=== PATIENT | female | born 1985 | race Two or more races ===

== ENCOUNTER 2024-07-22 08:47 | Outpatient (AMB) | payer OTHER, SELFPAY ==
--- NOTE | 2024-07-22 08:49 | MHC.PC.OV ---
Vital Signs 07/22/24 08:50 Height 4 ft Weight 184 lb BMI 56.1 BP 106/80 Blood Pressure Location Lt brachial Position Sitting Respiration 18 Pulse 81 Pulse Source Pulse Oximeter Temp 97.9 F Temp Source Oral Pulse Oximetry (%) 99 Oxygen Delivery Method Room Air Intake Visit Reasons: [facility] Nurse Tech Required: No Accompanied by: Self / Same As Patient Allergies From [facility] Allergy (Unknown, Uncoded 07/22/24 09:18) NAUSEA AND VOMITTING Medication List - Last Reconciled 07/22/24 by SHIV Oneil albuterol sulfate mg continuous nebulization albuterol sulfate 90 mcg/actuation inhalation ammonium lactate 12% appl topical BID PRN atorvastatin 20 mg PO DAILY betamethasone dipropionate 0.05% appl topical BID PRN cetirizine 10 mg PO DAILY fluticasone furoate-vilanterol 200-25 mcg/dose (Breo Ellipta) 1 ea inhalation DAILY hydroxyzine HCl 25 mg PO BEDTIME PRN levothyroxine 112 mcg PO DAILY meclizine 12.5 mg PO TID PRN mepolizumab (Nucala) mg subcut montelukast 10 mg PO DAILY pantoprazole 40 mg PO DAILY polyethylene glycol 3350 (Purelax) grams PO tiotropium bromide 1.25 mcg/actuation (Spiriva Respimat) 2 puffs inhalation DAILY triamcinolone acetonide 1 spray intranasal DAILY Tobacco use date assessed: 07/22/24 Dental Screening Dental Screen Date: 07/22/24 Did you have a dental visit in the last 12 months?: No Did you have a dental problem in the last 6 months where you did not have access to dental care?: No Was dental information given to patient?: No HPI [facility] HPI Details Previous PCP: Dr. Meme Aguilar, [facility] Last visit:last year Last PE: last year but does not remember the month Specialist: Pulmonology, endocrinology, orthopedics, gastro, medical weight management-will need a referral OBGYN: needs referral Past medical history:Graves disease, hypothyroids, asthma, sleep apnea, fatty liver, alternating constipation vs diarrhea, abnormal large bowel motility Medications: see med list The patient is a 38-year-old female presenting to [facility], with concerns about significant weight gain and liver health. She reports a weight increase of more than 20 pounds since January, despite maintaining a healthy diet. The patient has hypothyroidism, which has likely contributed to her decreased metabolism and could relate to her weight gain. This concern is compounded by her history of fatty liver disease and chronic asthma, which she manages with medication and a CPAP machine for sleep apnea. The patient also has a history of Graves' disease, chronic liver disease, and gluten and egg allergies. Reports that she gets red papules on her face from eating gluten. Small bowel biopsy was negative, but no one explained to her that she had to continue eating gluten for the test to be accurate, per patient. She reports gastrointestinal dysfunction, with symptoms such as alternating constipation and diarrhea due to abnormal large bowel motility and functional dyspepsia. She is concerned that her existing liver condition may be aggravated by her weight gain. Adding to her stress, the patient recently lost her mother and has dealt with the emotional and physical burden of caregiving over the past three years. She has quit smoking to improve her asthma, but continues to struggle with management due to her recent weight issues. Despite these challenges, the patient actively engages with healthcare to address and ameliorate her conditions. [facility] Medical History Abnormal large bowel motility Lumbar disc herniation Fatty liver Obesity GERD (gastroesophageal reflux disease) Asthma Hypothyroidism Graves disease Family History Other Breast cancer Colon cancer Diabetes Hypercholesteremia Hypertension Social History Housing: [place] Patient Tobacco Use Status: Former Tobacco user e-Cigarette/Vaping Use: Never Used service: No Current occupational status: employed Current occupational exposures/hazards: Yes Cognitive needs: No Hearing needs: No Questionnaire PHQ-9 Over the last 2 weeks, how often have you been bothered by any of the following problems? 1. Little interest or pleasure in doing things: not at all 2. Feeling down, depressed, or hopeless: nearly every day 3. Trouble falling or staying asleep, or sleeping too much: nearly every day 4. Feeling tired or having little energy: more than half the days 5. Poor appetite or overeating: nearly every day 6. Feeling bad about yourself - or that you are a failure or have let yourself or your family down: nearly every day 7. Trouble concentrating on things, such as reading the newspaper or watching television: more than half the days 8. Moving or speaking so slowly that other people could have noticed. Or the opposite - being so fidgety or restless that you have been moving around a lot more than usual: not at all 9. Thoughts that you would be better off or of hurting yourself in some way: not at all Total score: 16 Depression Screening Interpretation: Positive Depression Screening Done: Yes 87086 - PHQ-9 Billing: Yes Source: Developed by Drs. Alessandro Rivera, Desiree Sarabia, Elia Ricketts and colleagues, with an educational vincenzo from [employer]. Thrive Questionnaire Date Thrive assessed: 07/22/24 I am a: Patient What is your living situation today?: I have a steady place to live Within the past 12 months, did the food you bought not last and you didn't have the money to get more?: Sometimes True Within the past 12 months, did you worry whether your food would run out before you got money to buy more?: Often true Do you have trouble paying for medicines?: Yes Do you have trouble getting transportation to medical appointments?: No Do you have trouble paying your heating and electricity bill?: Yes Do you have trouble taking care of your child, family member or friend?: No Do you have trouble with day-to-day activities such as bathing, preparing meals, shopping, managing finances, etc.?: No Are you currently unemployed and looking for a job?: No Are you interested in more education?: Yes Please select the resources that you would like help with: Food, Paying for medicine and Education Currently or been in a relationship where the following occur: No concerns reported THRIVE Score: 3 AUDIT C Alcohol Use Questionnaire (AUDIT-C) 1. How often do you have a drink containing alcohol?: Monthly or less 2. How many drinks containing alcohol do you have on a typical day when you are drinking?: 3 or 4 3. How often do you have six or more drinks on one occasion?: Less than monthly Total Score: 3 DAYRON-7 AMB Questionnaire DAYRON-7 Date DAYRON - 7 assessed: 07/22/24 Feeling nervous, anxious, or on edge: 2 = More than half the days Not being able to stop or control worryin = Nearly every day Worrying too much about different things: 3 = Nearly every day Trouble relaxin = Nearly every day Being so restless that it is hard to sit still: 3 = Nearly every day Becoming easily annoyed or irritable: 3 = Nearly every day Feeling afraid as if something awful might happen: 3 = Nearly every day Total DAYRON-7 score (0-4 normal; 5-9 mild; 10-14 moderate; 15-21 severe): 20 Source: Developed by Drs. Alessandro Rivera, Desiree Sarabia, Elia Ricketts and colleagues, with an educational vincenzo from [employer]. DAYRON-7 Assessment Billing DAYRON-7 Assessment Tool: DAYRON-7 Assessment 22249 Review of Systems Const Details: - General: Reports significant weight gain; denies fever. - Respiratory: Reports controlled asthma; denies shortness of breath and chest pain. - Cardiovascular: Denies heart palpitations. - Gastrointestinal: Reports alternating constipation and diarrhea, functional dyspepsia; denies current abdominal pain. - Skin: Reports gluten and egg sensitivity. - Psychological: Reports recent emotional stress due to mother's passing. Denies headache(s) and Reports weight gain Eyes Denies loss of vision ENT Denies vertigo, Denies dizziness, Denies headache(s) and Denies sore throat Card Denies chest pain, Denies leg edema and Denies lightheadedness Resp Denies cough, Denies hemoptysis and Denies wheezing GI Denies abdominal pain, Denies melena, Reports bloating, Reports constipation (Intermittently), Reports dyspepsia, Reports diarrhea (Intermittently) and Denies vomiting Denies urinary frequency, Denies dysuria and Denies urinary urgency Musc Denies arthralgias, Denies joint swelling, Denies numbness and Denies tingling Neuro Denies Abnormal speech present, Denies behavioral changes, Denies vertigo, Denies dizziness, Denies headache(s), Denies loss of vision, Denies memory loss, Denies numbness and Denies tingling Psych Reports anxiety, Denies behavioral changes, Reports depression, Denies memory loss and Denies panic attacks Maico/Lymph Denies easy bleeding and Denies easy bruising Aller/Immun Denies wheezing Physical exam (Primary Care) Vital Signs: Last Vital Signs Pulse 81 05 08:50 BP 106/80 07/22/24 08:50 Pulse Ox 99 07/22/24 08:50 Oxygen Delivery Method Room Air 07/22/24 08:50 BMI result Body Mass Index 0.6 Tobacco/Smoking Status: Tobacco use Status Tobacco use date assessed 07/22/24 07/22/24 08:59 Patient Tobacco Use Status Former Tobacco user 07/22/24 08:59 e-Cigarette/Vaping Use Never Used 07/22/24 08:59 PHQ-9: PHQ-9 Score PHQ-9: Total score 16 07/22/24 18:17 Depression Screening Interpretation: Positive Thrive Assessment: Date of Thrive Assessment Date Thrive assessed 07/22/24 07/22/24 08:59 Currently or been in a relationship where the following occur: No concerns reported Const General: healthy appearing, no acute distress, alert and awake Nutritional Appearance: well nourished Orientation/consciousness: oriented to person, oriented to place and oriented to time HENMT Ears: TM's normal bilaterally General nose exam: Normal nasal mucous membranes and turbinates present Eyes Conjunctivae: conjunctivae normal Sclerae: sclerae normal Pupils: Equal, round and reactive pupils present Neck Neck: Yes no lymphadenopathy and Yes no JVD Thyroid: Thyroid normal Carotids: no bruits Resp Effort & Inspection: normal respiratory effort and not tachypneic Auscultation: no crackles, no rales, no rhonchi and no wheezes Cardio Rate: regular rate Rhythm: regular rhythm Heart sounds: no murmurs and normal S1 and S2 GI Palpation (GI): Soft to palpation, nontender, no hepatomegaly and no splenomegaly Auscultation: normal bowel sounds Skin General skin exam: no rashes or lesions noted and dry skin Neuro General: oriented to person, oriented to place and oriented to time Cranial nerves: Yes Equal, round and reactive pupils present Speech: No Abnormal speech present Gait exam (Neuro): Normal gait present Motor exam (neuro): no tremor noted Extrem Right upper extremity: full ROM Left upper extremity: full ROM Right lower extremity: full ROM; no edema Left lower extremity: full ROM; no edema Psych Mental Status: mental status grossly normal Speech and movement: Normal speech and movement present Affect: normal affect Attitude: cooperative Thought process: Normal thought process present Coding Level of Care Code New Pt Level 4 (47073) Diagnoses Fatty liver K76.0 Gastroesophageal reflux disease, unspecified whether esophagitis present K21.9 Esophagitis presence: esophagitis presence not specified Severe persistent asthma, unspecified whether complicated J45.50 Asthma severity: severe Asthma complication type: unspecified Asthma persistence: persistent Hypothyroidism, unspecified type E03.9 Hypothyroidism type: unspecified Graves disease E05.00 Irritable bowel syndrome with both constipation and diarrhea K58.2 Sleep apnea, unspecified type G47.30 Sleep apnea type: unspecified type Morbid obesity E66.01 Anxiety and depression F41.9; F32.A Additional Codes PHQ-9 - 61748 - PHQ-9 Billing: Yes ([id number]) DAYRON-7 Assessment Billing - DAYRON-7 Assessment Tool: DAYRON-7 Assessment 63835 ([id number]) Time Spent (min) 46 Assessment & Plan Assessment & Plan (1) Fatty liver: Code(s): K76.0 - Fatty (change of) liver, not elsewhere classified Category: Medical Plan: History of fatty liver disease. Encouraged to decrease or discontinue alcohol and Tylenol usage to prevent damaging the liver Reinforced low-cholesterol diet and activity as tolerated has proven to decrease fatty liver (2) GERD (gastroesophageal reflux disease): Code(s): K21.9 - Gastro-esophageal reflux disease without esophagitis Category: Medical Qualifiers: Esophagitis presence: esophagitis presence not specified Qualified Code(s): K21.9 - Gastro-esophageal reflux disease without esophagitis Plan: Do not eat meals or drink carbonated beverages within 3 hr of bedtime Decrease the amount of fried, fatty, and spicy foods to decrease gastric acid production Raise the head of the bed using 4 to 6-inch blocks, especially if nocturnal symptoms are present Lose weight if indicated; avoid tight-fitting clothing, especially around the waist Avoid foods that relax the Lower esophageal sphincter (chocolate, peppermint, high-fat foods etc.,) Continue pantoprazole 40 mg daily (3) Asthma: Code(s): J45.909 - Unspecified asthma, uncomplicated Category: Medical Qualifiers: Asthma severity: severe Asthma complication type: unspecified Asthma persistence: persistent Qualified Code(s): J45.50 - Severe persistent asthma, uncomplicated Plan: Continue fluticasone furoate-vilanterol 200-25mcg/dose (Breo Ellipta) 1 puff daily, montelukast 10mg daily, Spiriva Respimat 2 puffs inh daily. The patient also has albuterol sulfate via neb and MDI without directions will clarify on next visit. In addition, the patient has Mepollizumab listed on her med list without any cleared direction as well. 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 Referral placed (4) Hypothyroidism: Code(s): E03.9 - Hypothyroidism, unspecified Category: Medical Qualifiers: Hypothyroidism type: unspecified Qualified Code(s): E03.9 - Hypothyroidism, unspecified Plan: She is currently on levothyroxine 112 mcg daily Thyroid function tests ordered, we will advise when resulted (5) Graves disease: Code(s): E05.00 - Thyrotoxicosis with diffuse goiter without thyrotoxic crisis or storm Category: Medical Plan: History of Graves disease. Patient is currently on levothyroxine for hypothyroidism for which she thinks is part of the reason of her ongoing weight issue. We will refer the patient the the endocrine to further evaluate. (6) Irritable bowel syndrome with both constipation and diarrhea: Code(s): K58.2 - Mixed irritable bowel syndrome Category: Medical Plan: Patient reports a history of alternating diarrhea and constipation. Reports that she is sensitive to gluten and eggs. She also reported large bowel abnormal motility. We will refer the patient to GI to further evaluate (7) Sleep apnea: Code(s): G47.30 - Sleep apnea, unspecified Category: Medical Qualifiers: Sleep apnea type: unspecified type Qualified Code(s): G47.30 - Sleep apnea, unspecified Plan: Uses CPAP (8) Morbid obesity: Code(s): E66.01 - Morbid (severe) obesity due to excess calories Category: Medical Plan: Patient has a BMI of 56.1 and has reported gaining over 20 lb since January Encouraged to exercise for at least 30 minutes a day/5 days a week Healthy eating discussed. Encouraged to eat fruits/vegetables, protein-fish/baked chicken, and to avoid salty/fried foods, sweets, caffeine and carbohydrates. Encouraged to increase water intake 6-8 glasses a day We will refer the patient to medical weight management (9) Anxiety and depression: Code(s): F41.9 - Anxiety disorder, unspecified; F32.A - Depression, unspecified Category: Medical Plan: Reports having difficulty dealing with her mother passing will refer he to a therapist Orders: Orders Complete Blood Count Auto Diff 07/22/24 E05.00 - Thyrotoxicosis with diffuse goiter without thyrotoxic crisis or storm, E03.9 - Hypothyroidism, unspecified, J45.909 - Unspecified asthma, uncomplicated, K21.9 - Gastro-esophageal reflux disease without esophagitis, E66.9 - Obesity, unspecified, K76.0 - Fatty (change of) liver, not elsewhere classified, M79.7 - Fibromyalgia, N28.1 - Cyst of kidney, acquired, M51.26 - Other intervertebral disc displacement, lumbar region, Z00.00 - Encounter for general adult medical examination without abnormal findings Lipid Panel 07/22/24 E05.00 - Thyrotoxicosis with diffuse goiter without thyrotoxic crisis or storm, E03.9 - Hypothyroidism, unspecified, J45.909 - Unspecified asthma, uncomplicated, K21.9 - Gastro-esophageal reflux disease without esophagitis, E66.9 - Obesity, unspecified, K76.0 - Fatty (change of) liver, not elsewhere classified, M79.7 - Fibromyalgia, N28.1 - Cyst of kidney, acquired, M51.26 - Other intervertebral disc displacement, lumbar region, Z00.00 - Encounter for general adult medical examination without abnormal findings CRP High Sensitivity 07/22/24 E05.00 - Thyrotoxicosis with diffuse goiter without thyrotoxic crisis or storm, E03.9 - Hypothyroidism, unspecified, J45.909 - Unspecified asthma, uncomplicated, K21.9 - Gastro-esophageal reflux disease without esophagitis, E66.9 - Obesity, unspecified, K76.0 - Fatty (change of) liver, not elsewhere classified, M79.7 - Fibromyalgia, N28.1 - Cyst of kidney, acquired, M51.26 - Other intervertebral disc displacement, lumbar region, Z00.00 - Encounter for general adult medical examination without abnormal findings Vitamin B12 and Folate 07/22/24 E05.00 - Thyrotoxicosis with diffuse goiter without thyrotoxic crisis or storm, E03.9 - Hypothyroidism, unspecified, J45.909 - Unspecified asthma, uncomplicated, K21.9 - Gastro-esophageal reflux disease without esophagitis, E66.9 - Obesity, unspecified, K76.0 - Fatty (change of) liver, not elsewhere classified, M79.7 - Fibromyalgia, N28.1 - Cyst of kidney, acquired, M51.26 - Other intervertebral disc displacement, lumbar region, Z00.00 - Encounter for general adult medical examination without abnormal findings UA CC w/rflx Micro + Cult 07/22/24 E05.00 - Thyrotoxicosis with diffuse goiter without thyrotoxic crisis or storm, E03.9 - Hypothyroidism, unspecified, J45.909 - Unspecified asthma, uncomplicated, K21.9 - Gastro-esophageal reflux disease without esophagitis, E66.9 - Obesity, unspecified, K76.0 - Fatty (change of) liver, not elsewhere classified, M79.7 - Fibromyalgia, N28.1 - Cyst of kidney, acquired, M51.26 - Other intervertebral disc displacement, lumbar region, Z00.00 - Encounter for general adult medical examination without abnormal findings TSH reflex Free T4 07/22/24 E05.00 - Thyrotoxicosis with diffuse goiter without thyrotoxic crisis or storm, E03.9 - Hypothyroidism, unspecified, J45.909 - Unspecified asthma, uncomplicated, K21.9 - Gastro-esophageal reflux disease without esophagitis, E66.9 - Obesity, unspecified, K76.0 - Fatty (change of) liver, not elsewhere classified, M79.7 - Fibromyalgia, N28.1 - Cyst of kidney, acquired, M51.26 - Other intervertebral disc displacement, lumbar region, Z00.00 - Encounter for general adult medical examination without abnormal findings Hemoglobin A1c 07/22/24 E05.00 - Thyrotoxicosis with diffuse goiter without thyrotoxic crisis or storm, E03.9 - Hypothyroidism, unspecified, J45.909 - Unspecified asthma, uncomplicated, K21.9 - Gastro-esophageal reflux disease without esophagitis, E66.9 - Obesity, unspecified, K76.0 - Fatty (change of) liver, not elsewhere classified, M79.7 - Fibromyalgia, N28.1 - Cyst of kidney, acquired, M51.26 - Other intervertebral disc displacement, lumbar region, Z00.00 - Encounter for general adult medical examination without abnormal findings Free T4 (Free Thyroxine) 07/22/24 E03.9 - Hypothyroidism, unspecified, E05.00 - Thyrotoxicosis with diffuse goiter without thyrotoxic crisis or storm Comprehensive [place]. Panel Fast 07/22/24 E05.00 - Thyrotoxicosis with diffuse goiter without thyrotoxic crisis or storm, E03.9 - Hypothyroidism, unspecified, J45.909 - Unspecified asthma, uncomplicated, K21.9 - Gastro-esophageal reflux disease without esophagitis, E66.9 - Obesity, unspecified, K76.0 - Fatty (change of) liver, not elsewhere classified, M79.7 - Fibromyalgia, N28.1 - Cyst of kidney, acquired, M51.26 - Other intervertebral disc displacement, lumbar region, Z00.00 - Encounter for general adult medical examination without abnormal findings Erythrocyte Sedimentation Rate 07/22/24 E05.00 - Thyrotoxicosis with diffuse goiter without thyrotoxic crisis or storm, E03.9 - Hypothyroidism, unspecified, J45.909 - Unspecified asthma, uncomplicated, K21.9 - Gastro-esophageal reflux disease without esophagitis, E66.9 - Obesity, unspecified, K76.0 - Fatty (change of) liver, not elsewhere classified, M79.7 - Fibromyalgia, N28.1 - Cyst of kidney, acquired, M51.26 - Other intervertebral disc displacement, lumbar region, Z00.00 - Encounter for general adult medical examination without abnormal findings Vitamin D 25-OH Total 07/22/24 E05.00 - Thyrotoxicosis with diffuse goiter without thyrotoxic crisis or storm, E03.9 - Hypothyroidism, unspecified, J45.909 - Unspecified asthma, uncomplicated, K21.9 - Gastro-esophageal reflux disease without esophagitis, E66.9 - Obesity, unspecified, K76.0 - Fatty (change of) liver, not elsewhere classified, M79.7 - Fibromyalgia, N28.1 - Cyst of kidney, acquired, M51.26 - Other intervertebral disc displacement, lumbar region, Z00.00 - Encounter for general adult medical examination without abnormal findings
[2024-07-22 08:50] VITALS: BP 106/80; PULSE 81; RESP 18; TEMP 36.6; O2SAT 99; BMI 56.1
--- OUTSIDE RECORDS SUMMARY | 2024-07-22 08:51 | XMS_ITS | Clinical Summary ---
Author Organization [facility] Address [address] [place] [address] Phone Care Team Providers Care Obstetrics Tech Name Role Phone Nj Aguilar MD Primary Care Provider [phone] Allergies Active Allergy Reactions Criticality Noted Date Comments Egg 10/13/2022 House Dust Mite 03/28/2015 Methylprednisolone Acetate 2 vomiting Oxycodone Other 10/13/2022 Oxycodone-Acetaminophen Nausea And Vomiting 09/2016 Pollen Extracts 03/01/2024 Tramadol Nausea And Vomiting 10/13/2022 Wheat 10/21/2023 Medications adhesive bandage bandage 024 Active alcohol swabs (Alcohol Prep Pads) pads, medicated 022 Active atorvastatin (LIPITOR) 20 mg tablet Take 1 tablet (20 mg total) by mouth 1 (one) time each day. 024 Active dicyclomine (BENTYL) 10 mg capsule Take 2 capsules (20 mg total) by mouth. 024 Active EPINEPHrine (EpiPen 2-Frederick) 0.3 mg/0.3 mL injection 022 Active hydrocortisone 2.5 % cream Apply sparingly to affected areas 1 - 2 times a day as needed 020 Active polyethylene glycol (MIRALAX) 17 gram packet Take 17 g by mouth. 023 Active sucralfate (CARAFATE) 100 mg/mL suspension Take 10 mL (1 g total) by mouth. Active triamcinolone (NASACORT) 55 mcg nasal inhaler Administer 1 spray into affected nostril(s). Active betamethasone, augmented, (DIPROLENE-AF) 0.05 % cream APPLY TO LEGS TWICE DAILY NEEDED Active mometasone (ELOCON) 0.1 % ointment APPLY TWICE A DAY TO TRUNK, ARMS AND LEGS, WEAN OFF IMPROVEMENT IS SEEN Active hydrOXYzine HCL (ATARAX) 25 mg tabletIndications :Allergy, unspecified, sequela TAKE 1 TABLET BY MOUTH AT BEDTIME NEEDED FOR ITCHING. 90 tablet Active meclizine (ANTIVERT) 12.5 mg tabletIndications :Dizziness Take 1 tablet (12.5 mg total) by mouth 3 (three) times a day if needed for dizziness. 30 tablet 025 2024 Active cetirizine (ZyrTEC) 10 mg tabletIndications :Non-celiac gluten sensitivity,Pruri tus, unspecified TAKE 1 TABLET BY MOUTH EVERY DAY 90 tablet 1 025 Active pantoprazole (PROTONIX) 40 mg EC tabletIndications :Gastro-esophagea l reflux disease with esophagitis, without bleeding TAKE 1 TABLET BY MOUTH EVERY DAY 90 tablet 025 Active tiotropium (Spiriva Respimat) 1.25 mcg/actuation inhalation sprayIndications: Severe persistent asthma without complication (CMS/HCC V28) Inhale 2 puffs by mouth 1 (one) time each day. 3 each 3 025 2024 Active montelukast (SINGULAIR) 10 mg tabletIndications :Severe persistent asthma without complication (CMS/HCC V28) Take 1 tablet (10 mg total) by mouth at bedtime. 90 each 3 025 2025 Active fluticasone furoate-vilantero L (BREO ELLIPTA) 200-25 mcg/dose inhalerIndication s:Severe persistent asthma without complication (CMS/HCC V28) Inhale 1 puff by mouth 1 (one) time each day. 3 each 3 025 2024 Active albuterol HFA (PROAIR HFA ; PROVENTIL HFA ; VENTOLIN HFA) 90 mcg/actuation inhalerIndication s:Severe persistent asthma without complication ([facility] V28) Inhale 2 puffs by mouth every 6 (six) hours if needed for shortness of breath. 18 g 3 025 2024 Active albuterol 2.5 mg /3 mL (0.083 %) nebulizer solutionIndicatio ns:Severe persistent asthma without complication ([facility] V28) Take 3 mL (2.5 mg total) by nebulization 3 (three) times a day. 300 mL 2 025 Active tirzepatide, weight loss, (Zepbound) 2.5 mg/0.5 mL injection Inject 0.5 mL (2.5 mg total) under the skin every 7 (seven) days. 2 mL 025 Active levothyroxine (SYNTHROID, LEVOTHROID) 112 mcg tabletIndications :Acquired hypothyroidism TAKE ONE (1) TABLET BY MOUTH EVERY DAY 90 tablet 025 Active mepolizumab (Nucala) 100 mg/mL auto-injector Inject 100 mL (10,000 mg total) under the skin. 024 2024 levothyroxine (SYNTHROID, LEVOTHROID) 112 mcg tablet TAKE 1 TABLET BY MOUTH EVERY DAY 90 tablet 025 2024 Discontinued Active Problems Problem Noted Date Diagnosed Date Hyperlipidemia 07/24/2023 Anxiety and depression 09/03/2021 Severe persistent asthma ([facility] V28) 2 Overview (11/27/2023): Last Assessment & Plan: Severe asthma. Continue with the followin. Every month Nucala injections 2. Breo 200 mcg 1 puff once a day 3. Continue Spiriva 1 puff once a day Continue Singulair Return to clinic in 4 -6 months Fatty liver 04/01/2021 Overview (11/27/2023): Incidental findings on abdominal ultrasound October 2019 and March 2021. 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 Negative duodenal biopsy RAO (obstructive sleep apnea) 10/20/2018 Overview (11/27/2023): Last Assessment & Plan: Patient has severe obstructive sleep apnea Use of CPAP compliance meet DME requirements Continue with the use of CPAP. Lumbar disc herniation 04/19/2018 Fibromyalgia 10/05/2017 Simple cyst of kidney 06/29/2017 Overview (11/27/2023): RIGHT Ultrasound on 03/29/2021 revealed evidence of bilateral renal cysts. Chronic back pain 06/17/2017 Obesity (BMI 30-39.9) 05/08/2017 Excessive sleepiness 05/08/2017 Chronic allergic rhinitis 05/08/2017 Snoring 05/08/2017 Hypothyroid 07/11/2013 Acne 07/11/2013 Graves' disease 12/31/2012 Overview (11/27/2023): Received TOVAR ~ 2013 GERD (gastroesophageal reflux disease) 2 Asthma 05/29/2011 Overview (11/27/2023): Chronic severe asthma with hospitalization and near daily requirement of Albuterol despite the use of Flonase Last Assessment & Plan: Patient has severe asthma and is currently on biologicals (Nucala). Since I change dual therapy from Breo high-dose to Advair her symptoms have not been the same and she is using the albuterol more frequently. Because of this I will place her back in Breo. The plan is the followin. Continue with Nucala every month self injections 2. Change Advair to Breo 200 mcg 1 puff once a day 3. Continue with Spiriva 1 puff once a day 4. Continue with Singulair and antihistamines Return to clinic in 3 months for reevaluation. Encounters Date Type Department Care Team Description 05/12/2024 Telephone Pulmonolgy - [place] [address] [place] [address] Hilda Lindsey NP durable medical equipment 05/03/2024 11:15 AM EDT Consult Bariatric Surgery - [place] [address] [place] [phone] Le Booker PA Obesity (BMI 30-39.9) (Primary Dx); Other female genital prolapse; RAO (obstructive sleep apnea); Fatty liver 04/28/2024 Telephone Pulmonolgy - [place] [address] [facility] [address] [place] [phone] Mickie Payton CO DME-nebulizer machine 04/26/2024 4:00 PM EST Office [facility] [address] [facility] [address] [place] [phone] Hilda Lindsey NP Severe persistent asthma without complication (CMS/[facility] V28) (Primary Dx); Chronic allergic rhinitis; RAO (obstructive sleep apnea); Obesity (BMI 30-39.9) from Last 3 Months Immunizations Name Administration Dates Next Due Influenza Quadravalent, MDCK , 0.5ml, preservative free (Flucelvax) 6mo and older 12/12/2021,02/03/2019 Influenza Quadravalent, MDCK , 0.5ml, with preservative (Flucelvax) 6mo and older 11/04/2017,11/06/2016 Influenza Quadravalent, [place]ol[place] mbinant, 0.5ml, preservative free (Flublok) 18yo and older 02/29/2024 Influenza trivalent, with pr eservative (Fluzone; Afluria) 6mo and older 12/14/2014,11/06/2011 Pneumococcal polysaccharide 23 valent (Pneumovax 23) 2yo and older 06/05/2010 Tdap Tetanus diptheria acell ular pertussis (Boostrix; Adacel) 7yo and older 11/13/2016 Surgical History Surgery Date Site/Laterality Comments SECTION PROCEDURE: HISTORICAL ; COMMENT: x 2 TUBAL LIGATION PROCEDURE: HISTORICAL TUBAL LIGATION COLONOSCOPY 03/04/2012 PROCEDURE: MS COLONOSCOPY FLX DX W/COLLJ SPEC WHEN PFRMD; COMMENT: normal COLONOSCOPY 12/02/2017 PROCEDURE: HISTORICAL COLONOSCOPY; COMMENT: rectal polyp TA polyp ESOPHAGOGASTRODUODENOSCOPY 12/27/2019 PROCEDURE: MS EGD TRANSORAL BIOPSY SINGLE/MULTIPLE; COMMENT: Dr. Donato - normal-appearing esophagus and duodenum. Stomach had evidence of gastric mucosal congestion. Duodenal biopsy was negative for celiac disease. Gastric biopsy was positive for mild chronic gastritis but negative for H. pylori. COLONOSCOPY 03/27/2021 PROCEDURE: HISTORICAL COLONOSCOPY; COMMENT: tiny polyp ESOPHAGOGASTRODUODENOSCOPY 03/27/2021 PROCEDURE: MS EGD TRANSORAL BIOPSY SINGLE/MULTIPLE; COMMENT: normal, random stomach biopsy negative. OTHER SURGICAL HISTORY 12/20/2021 PROCEDURE: HISTORICAL TOTAL HYSTERECTOMY W/O BSO; COMMENT: RAH, BS CHOLECYSTECTOMY PROCEDURE: MS LAPAROSCOPY SURG CHOLECYSTECTOMY Medical History Medical History Date Comments Dermatitis DX:Dermatitis Asthma DX:Asthma Atopic dermatitis 11/29/2015 DX:Atopic derm atitis Fibromyalgia 10/05/2017 DX:Fibromyalgia Graves' disease 12/31/2012 DX:Graves' disea se; COMMENT: Received TOVAR - 2013 Hypothyroid 07/11/2013 DX:Hypothyroid GERD (gastroesophageal reflux disease) 2 DX:GERD (gastroesophageal reflux disease) Simple cyst of kidney 06/29/2017 DX:Simple cyst of kidney; COMMENT: RIGHT Lumbar disc herniation 04/19/2018 DX:Lumbar disc herniation Family history of colon cancer 11/06/2011 D X:Family history of colon cancer; COMMENT: Father at age 40. Negative colonoscopy 03/04/2012, no colon cancer screening needed for 5 to 7 years. RAO (obstructive sleep apnea) 10/20/2018 DX :RAO (obstructive sleep apnea) Fatty liver 04/01/2021 DX:Fatty liver; COMMENT: Incidental findings on abdominal ultrasound October 2019 and March 2021. Functional dyspepsia DX:Function al dyspepsia Abnormal large bowel motility DX :Abnormal large bowel motility Abdominal pain DX:Abdominal ligia n Gastritis DX:Gastritis Change in bowel habits DX:Change in bowel habits Hyperlipidemia 07/24/2023 DX:Hyperlipidemi a Family History Medical History Relation Name Comments Diabetes Brother Other: allergic rhinitis Brother Other: Hypoglycemia Daughter Colon cancer Father Breast cancer Mother Depression Mother Hypertension Mother Other: allergic rhinitis Mother Other: amyloidosis Mother Arthritis Sister PCOS Other: allergic rhinitis Sister Relation Name Status Comments Brother Daughter Father Alive Mother Alive Sister Social History Tobacco Use Types Packs/Day Years Used Date Smoking Tobacco: Former Cigarettes 0.3 15.8 0 08/09/2007 - 05/13/2023 Smokeless Tobacco: Never Tobacco Cessation:Counseling Given: Not Answered Alcohol Use Standard Drinks/Week Comments Not Currently 0 (1 standard drink = 0.6 oz pur e alcohol) Comments No Sex and Gender Information Value Date Recorded Sex Assigned at Female 03/31/2024 1:17 PM EST Legal Sex Female 5:36 AM EST Gender Identity Female 03/31/2024 1:17 PM EST Sexual Orientation Not on file Obstetrics History Last Filed Vital Signs Vital Sign Reading Time Taken Comments Blood Pressure 121/82 05/03/2024 11:25 AM EDT Pulse 92 05/03/2024 11:25 AM EDT Temperature 36.6 ??C (97.8 ??F) 04/26/2024 3:55 PM ES T Respiratory Rate 16 04/26/2024 3:55 PM EST Oxygen Saturation 97% 04/26/2024 3:55 PM EST Inhaled Oxygen Concentration - - Weight 83.5 kg (184 lb) 04/26/2024 3:55 PM EST Height 148.6 cm (4' 10.5 ) 05/03/2024 11:25 AM E DT Body Mass Index 37.16 04/26/2024 3:55 PM EST Plan of Treatment Upcoming Encounters Date Type Department Care Team (Late st Contact Info) Description 09/14/2024 9:45 AM EDT Office Visit Pulmonolgy - [place] [address] [facility] [address] [place] [phone] Hilda Lindsey NP [address] [facility] [address] [place] [address] 11/10/2024 11:00 AM EDT Office Visit Bariatric Surgery - [place] [address] [facility] [address] [place] [phone] Le Booker PA [address] [facility] [address] [place] [address] Health Maintenance Due Date Last Done Comments Hepatitis A Vaccines (1 of 2 - Risk 2-dose series) 08/09/2003 Pneumococcal Vaccine: Pediatrics (0 to 5 Years) and At-Risk Patients (6 to 64 Years) (2 of 2 - PCV) 06/06/2011 06/05/2010 Colorectal Cancer Screening: Colonoscopy 02/01/2022 Social Influencers of Health Screening 02/01/2022 COVID-19 Vaccine ( season) 2023 01/29/2021, 06/15/2020, 05/24/2020 Hepatitis B Vaccines (2 of 3 - 19+ 3-dose series) 03/31/2024 03/03/2024 Depression Screening 02/28/2025 02/29/2024 DTaP,Tdap,and Td Vaccines (2 - Td or Tdap) 11/13/2026 11/13/2016 Cholesterol Screening (Lipid Panel) 07/22/2028 07/23/2023, 07/23/2023 Hepatitis C Screening Completed 07/03/2015 HIV Screening Completed 12/09/2017 Influenza Vaccine Completed 02/29/2024, , 02/03/2019, Additional history exists MMR Vaccines Aged Out 03/03/2024 No longer eligi ble based on patient's age to complete this topic HIB Vaccines Aged Out No longer eligi ble based on patient's age to complete this topic HPV Vaccines Aged Out No longer eligi ble based on patient's age to complete this topic IPV Vaccines Aged Out No longer eligi ble based on patient's age to complete this topic Meningococcal ACWY Vaccine Aged Out N o longer eligible based on patient's age to complete this topic Meningococcal B Vaccine Aged Out No l onger eligible based on patient's age to complete this topic RSV Immunization Patients Under 20 months Aged Out No longer eligible based on patient's age to complete this topic Varicella Vaccines Aged Out No longer eligible based on patient's age to complete this topic Procedures Procedure Name Priority Date/Time Associated Diagnosis Comments LIPID PANEL Routine 07/23/2023 HIV SCREENING Routine 12/09/2017 HEPATITIS C SCREENING Routine 07/03/2015 from Last 3 Months or Most Recently Relevant to Health Maintenance Results * (ABNORMAL) Lipid panel (07/23/2023) Pathologist [facility] LDL/HDL Ratio 4 0 - 4 Triglycerides 59 0 - 150 mg/dL Cholesterol 174 0 - 200 mg/dL HDL 49 >=40 mg/dL LDL Cholesterol 114(A) 0 - 100 mg/dL Blood Venous blood specimen / Unknown Historical Provider LAB BLOOD ORDERABLES Rachele l Result * HIV Screening (12/09/2017) Pathologist [facility] HIV Screening abstracted [facility] Provider HEALTH MAINTENANCE Final Result * Hepatitis C Screening (07/03/2015) Pathologist [facility] Hepatitis C Screening abstracted [facility] Provider HEALTH MAINTENANCE Final Result from Last 3 Months or Most Recently Relevant to Health Maintenance Insurance [facility] Care Teams Obstetrics Tech Relationship Specialty Start Date End Date jN Aguilar MD [address] [place] [id number] PCP - General Internal Medicine 08/04/18
== END 2024-07-22 09:54 | disposition home or self-care (01) ==
LOC: HO.HMCH 08:47
PROVIDERS: PCP Internal Medicine
DX: K76.0 Fatty (change of) liver, not elsewhere classified (principal); J45.50 Severe persistent asthma, uncomplicated; E66.01 Morbid (severe) obesity due to excess calories; Z68.43 Body mass index [BMI] 50.0-59.9, adult; K21.9 Gastro-esophageal reflux disease without esophagitis; E03.9 Hypothyroidism, unspecified; E05.00 Thyrotoxicosis with diffuse goiter without thyrotoxic crisis or storm; K58.2 Mixed irritable bowel syndrome; G47.30 Sleep apnea, unspecified; F41.9 Anxiety disorder, unspecified; F32.A Depression, unspecified

== ENCOUNTER 2024-07-22 08:47 | Outpatient (REF) | payer OTHER, SELFPAY ==
[2024-07-22 10:13] LABS: MANUAL DIFF FLAG NO
[2024-07-22 11:18] LABS: Basophils Absolute Auto 0.1 X10*3/uL (0.0-0.2); Basophils Percent Auto 0.7 % (0-2); Eosinophils Absolute Auto 0.4 X10*3/uL (0.0-0.4); Eosinophils Percent Auto 6.1 % (0-4); Hematocrit 41.9 % (37.0-47.0); Hemoglobin 13.5 g/dl (12.0-16.0); Imm Gran Abs Auto 0.04 X10*3/uL (0.00-0.03); Imm Gran Pct Auto 0.6 % (0.0-0.4); Lymphocytes Percent Auto 27.9 % (20-40); Mean Corpuscular HGB Conc 32.2 g/dl (31.0-35.0); Mean Corpuscular Hemoglobin 28.3 pg (27.0-33.0); Mean Corpuscular Volume 87.8 fL (80.0-98.0); Mean Platelet Volume 9.8 fL (9.4-12.3); Monocytes Absolute Auto 0.8 X10*3/uL (0.1-1.2); Monocytes Percent Auto 11.5 % (2-11); Neutrophils Absolute Auto 3.9 x10*3/uL (2.0-8.3); Neutrophils Percent Auto 53.2 % (45-73); Platelet Count 345 X10*3/uL (160-400); Red Blood Count 4.77 X10*6/uL (4.20-5.50); Red Cell Distribution Width 13.9 % (11.0-16.0); White Blood Count 7.2 X10*3/uL (4.8-10.8)
[2024-07-22 11:28] LABS: Estimated Average Glucose 117 mg/dL; Hemoglobin A1c % 5.7 % (<6.0)
[2024-07-22 11:35] LABS: Appearance Urine Clear; Color Urine Yellow; Glucose Urine UA Negative (Negative); Leukocyte Esterase Urine Negative (Negative); Nitrite Urine Negative (Negative); UMIC TRIGGER UACC YES; Urine Blood Small (1+) (Negative); Urine Ketones Negative (Negative); Urine Protein Negative (Neg-Trace)
[2024-07-22 12:03] LABS: Erythrocyte Sedimentation Rate 7 MM/HR (0-20)
[2024-07-22 12:07] LABS: Bacteria Urine None Seen (None Seen); Hyaline Casts Urine 0-2 /LPF (0-2); RBC Urine 0-2 /HPF (0-2); WBC Urine 0-5 /HPF (0-5)
[2024-07-22 12:37] LABS: Alanine Aminotransferase 22 U/L (0-31); Albumin Level 4.2 g/dL (3.5-5.0); Alkaline Phosphatase 58 U/L (39-117); Anion Gap 10 (12-20); Aspartate Amino Transferase 16 U/L (5-31); Bilirubin Total 0.9 mg/dL (0.0-1.0); Blood Urea Nitrogen 10 mg/dL (9-16); Carbon Dioxide 28 mmol/L (22-29); Chloride 106 mmol/L (96-108); Cholesterol 187 mg/dL (<200); Estimated Glomerular Filt Rate > 60; Glucose Fasting 90 mg/dL (60-99); HDL Cholesterol 44 mg/dL (>40); LDL Cholesterol Calculated 127 mg/dL (<100); Sodium 140 mmol/L (135-145); TSH reflex Free T4 5.24 uIU/mL (0.32-4.0); Total Protein 7.1 g/dL (6.5-8.0); Triglycerides 84 mg/dL (<150); Vitamin D 25-OH Total 22.7 ng/mL (>30)
[2024-07-22 13:15] LABS: Folate 13.7 ng/mL (> or = 4.0); Vitamin B12 360 pg/mL (200-900)
[2024-07-23 04:39] LABS: CRP High Sensitivity 2.3 mg/L
== END 2024-07-22 08:48 | disposition home or self-care (01) ==
LOC: HO.LAB 08:47
DX: Z76.89 Persons encountering health services in other specified circumstances (principal); K76.0 Fatty (change of) liver, not elsewhere classified; K21.9 Gastro-esophageal reflux disease without esophagitis; J45.50 Severe persistent asthma, uncomplicated; E03.9 Hypothyroidism, unspecified; E05.00 Thyrotoxicosis with diffuse goiter without thyrotoxic crisis or storm; K58.2 Mixed irritable bowel syndrome; G47.30 Sleep apnea, unspecified; E66.01 Morbid (severe) obesity due to excess calories; Z68.43 Body mass index [BMI] 50.0-59.9, adult; F41.9 Anxiety disorder, unspecified; F32.A Depression, unspecified; Z79.899 Other long term (current) drug therapy; Z00.00 Encounter for general adult medical examination without abnormal findings; M51.26 Other intervertebral disc displacement, lumbar region; N28.1 Cyst of kidney, acquired; M79.7 Fibromyalgia
CPT/HCPCS: 36415; 80053; 80061; 81001; 82306; 82607; 82746; 83036; 84439; 84443; 85025; 85652; 86141; 96127

== ENCOUNTER 2024-09-21 14:12 | Outpatient (AMB) | payer OTHER, SELFPAY ==
--- NOTE | 2024-09-21 14:15 | MHC.OFFVIS ---
Vital Signs 09/21/24 14:17 Height 4 ft 11 in Weight 182 lb BMI 36.8 BP 93/59 L Blood Pressure Location Lt brachial Position Sitting Pulse 90 Pulse Oximetry (%) 98 Oxygen Delivery Method Room Air Intake Visit Reasons: IBS, Fatty Liver Intake Note: Patient new consult for IBS, and Fatty Liver. Patient cc: intestine problems, she is not doing BM every date and is hard to do it even the soft stool, denies any other GI issues. She is worry about the last lab drawn. she also wanted to be text for Celiac. Conservation Engineer Required: No Accompanied by: Self / Same As Patient Allergies egg (eggs) Allergy (Intermediate, Verified 09/21/24 14:50) Rash From SOLU-MEDROL Allergy (Unknown, Uncoded 07/22/24 09:18) NAUSEA AND VOMITTING Medication List - Last Reconciled 09/21/24 by Esmer Esqueda CNP albuterol sulfate mg continuous nebulization albuterol sulfate 90 mcg/actuation inhalation ammonium lactate 12% appl topical BID PRN atorvastatin 20 mg PO DAILY betamethasone dipropionate 0.05% appl topical BID PRN cetirizine 10 mg PO DAILY fluticasone furoate-vilanterol 200-25 mcg/dose (Breo Ellipta) 1 ea inhalation DAILY hydroxyzine HCl 25 mg PO BEDTIME PRN levothyroxine 112 mcg PO DAILY meclizine 12.5 mg PO TID PRN montelukast 10 mg PO DAILY pantoprazole 40 mg PO DAILY PRN polyethylene glycol 3350 (Purelax) grams PO tiotropium bromide 1.25 mcg/actuation (Spiriva Respimat) 2 puffs inhalation DAILY triamcinolone acetonide 1 spray intranasal DAILY HPI HPI IBS, Fatty Liver: Details: Patient is a 39-year-old female with PMH of anxiety and depression, obesity, sleep apnea, fibromyalgia and asthma. Referred by PCP for further evaluation IBS and elevated liver enzyme. The patient presents with a history of irregular bowel habits, characterized by alternating episodes of mild constipation and normal bowel movements. Bowel movements occur approximately four to five times weekly and include occasional straining, often described as significant effort but without impaction. Stool consistency ranges from [place] Stool Chart types 2?4, with rare occurrences of types 1 or 6. Symptoms reportedly began after a hysterectomy two years ago, which may have contributed to straining and a worsening of abdominal pain during bowel movements. The patient denies significant blood in stool except for occasional bright red blood with harder stools attributed to hemorrhoids. No associated nausea, vomiting, or unexplained weight loss reported. The patient uses polyethylene glycol (Miralax) periodically to manage symptoms. Other reported symptoms include severe episodic abdominal pain relieved post-bowel movement. The patient expresses concern due to a family history of colorectal cancer in her father. There is a history of a colonoscopy 3?4 years ago with polyp removal completed through [facility]. Reports recommendations for 10-year follow-up. The patient also reports a history of non-celiac gluten sensitivity presenting as gastrointestinal symptoms, significant rash, and facial redness with ingestion of gluten or eggs, exacerbated with combined exposure. The patient sometimes experiences heartburn and regurgitation when gluten is consumed, managed previously with pantoprazole, though adherence to daily therapy is limited due to bone health concerns. The patient notes a past diagnosis of fatty liver made via ultrasound but lacks confirmatory imaging or recent evaluation. Liver enzymes from June 2024 were reportedly within normal limits. A history of elevated cholesterol (LDL 127 mg/dL) is noted, currently managed with atorvastatin, with a recent increase in dose. The patient includes a 13-year history of substantial difficulty with weight loss despite attempts with various diets and intermittent fasting, which the patient follows consistently with no substantial impact. Social hx: -former smoker, cessation last year - family hx as below [facility] Medical History (Updated 09/23/24 @ 09:39 by Esmer Esqueda CNP) Non-celiac gluten sensitivity IBS (irritable bowel syndrome) History of fatty infiltration of liver Abnormal large bowel motility Lumbar disc herniation Fatty liver Obesity GERD (gastroesophageal reflux disease) Asthma Hypothyroidism Graves disease Surgical History (Updated 08/24/24 @ 08:16 by Jammie Wright CMA) Hx of section Hx of cholecystectomy Family History Other Breast cancer Colon cancer Diabetes Hypercholesteremia Hypertension Social History Housing: House Alcohol intake: never Patient Tobacco Use Status: Former Tobacco user e-Cigarette/Vaping Use: Never Used service: No Current occupational status: employed Current occupational exposures/hazards: Yes Cognitive needs: No Hearing needs: No Review of Systems Const Reports as per HPI ENT Reports as per HPI Card Reports as per HPI Resp Reports as per HPI GI Reports as per HPI Reports as per HPI Physical Exam Vital Signs: Last Vital Signs Pulse 90 09/21/24 14:17 BP 93/59 L 09/21/24 14:17 Pulse Ox 98 09/21/24 14:17 Oxygen Delivery Method Room Air 09/21/24 14:17 BMI result Body Mass Index 36.8 Const General: healthy appearing, no acute distress and well developed Nutritional Appearance: average body habitus Orientation/consciousness: patient oriented x3 HEENT Head: Yes normal to inspection, Yes normocephalic and Yes atraumatic Face and sinus: Yes normal facial exam Eyes General: appearance normal, both eyes and all related structures Neck Neck: Yes normal visual inspection Resp Effort & Inspection: normal respiratory effort, able to speak in complete sentences, no tracheal deviation and symmetric chest movement Auscultation: clear to auscultation bilaterally and wheezes inspiratory wheezes and throughout Cardio Jugular venous distension: no JVD Rate: regular rate Rhythm: regular rhythm Heart sounds: S1 normal heart sound present, S2 normal heart sound present, no gallops and no murmurs GI Inspection: Yes normal to inspection, No distended, Yes obesity and Yes scar Palpation (GI): Soft to palpation, not firm, nontender and No hepatosplenomegaly present Auscultation: normal bowel sounds Neuro General: patient oriented x3 Gait exam (Neuro): Normal gait present Psych Appearance: grossly normal Mental Status: mental status grossly normal Speech and movement: Normal speech and movement present Affect: normal affect Attitude: cooperative Thought process: Normal thought process present Thought content: Normal thought content present Insight: Good insight present (Psych) Judgement: Good judgement present (Psych) Assessment & Plan Assessment & Plan (1) IBS (irritable bowel syndrome): Code(s): K58.9 - Irritable bowel syndrome, unspecified Category: Medical Qualifiers: Irritable bowel syndrome type: with constipation Qualified Code(s): K58.1 - Irritable bowel syndrome with constipation Plan: Episodic abdominal pain relieved by defecation, stool pattern variation from normal to mild constipation, and symptom chronicity meeting Malcom IV criteria. Additional Testing: Colonoscopy and upper endoscopy to rule out other pathology and celiac disease given the reported stool symptoms and family history of colorectal cancer. Medication Management: Continue polyethylene glycol PRN with titration based on stool consistency. Lifestyle Recommendations: -Gradual introduction of high-fiber foods (vegetables, legumes, whole grains) to manage symptoms. -Increase hydration with plain water during fasting periods. (2) History of fatty infiltration of liver: Code(s): Z87.19 - Personal history of other diseases of the digestive system Category: Medical Plan: Prior diagnosis via ultrasound from outside facility, no current imaging, elevated LDL, history of obesity. Additional Testing: Repeat abdominal ultrasound to confirm findings; obtain prior imaging records from [facility]. Medication Management: Continue atorvastatin as prescribed. Lifestyle Recommendations: -Implement a whole foods-based, healthy fat, moderate-carb diet. -Encourage regular physical activity to promote weight loss and manage NAFLD risk factors. (3) Non-celiac gluten sensitivity: Code(s): K90.41 - Non-celiac gluten sensitivity Category: Medical Plan: Symptom flares and dermatologic reaction after gluten ingestion without confirmatory celiac biopsy. Additional Testing: - Perform repeat antibody testing (anti-tTG) for reevaluation. -upper endoscopy as above Medications: -Education on risks and benefits of daily omeprazole. Encouraged famotidine as alternative. Patient opted to continue omeprazole PRN Lifestyle Recommendations: Strict gluten and egg avoidance. (4) Hypothyroidism: Code(s): E03.9 - Hypothyroidism, unspecified Category: Medical Qualifiers: Hypothyroidism type: unspecified Qualified Code(s): E03.9 - Hypothyroidism, unspecified Plan: Currently managed by PCP with recent referral to Endocrinology. TSH elevated at 5.24 based on 06/2024 labs. Currently prescribed 112 mcg of levothyroxine. May see improvement with weight loss once thyroid levels are stabilized Follow-up with PCP and Endocrinology as planned Plan Follow-up in 3 months or sooner as needed Procedure Time: I spent a total of 50 minutes on the date of encounter which includes: Preparing to see the patient (reviewed previous documentation, test results and medical history) Performing a medically appropriate exam and/or evaluation Ordering medications, tests, and procedures Documenting clinical information in the health record Orders: Orders US abdomen complete 09/21/24 Z87.19 - Personal history of other diseases of the digestive system Transglutaminase IgA 09/22/24 K58.2 - Mixed irritable bowel syndrome Medications: New bisacodyl (Dulcolax (bisacodyl)) Take four tablets pre colonoscopy instructions 20 mg (4 x 5 mg) PO ONCE 4 tabs 0RF 1 day polyethylene glycol 3350 (Miralax) per colonoscopy prep instructions 238 grams PO ONCE 238 grams 0RF Coding Level of Care Code New Pt New Pt Level 4 (12240) Patient Type New Diagnoses Irritable bowel syndrome with constipation K58.1 Irritable bowel syndrome type: with constipation History of fatty infiltration of liver Z87.19 Non-celiac gluten sensitivity K90.41 Hypothyroidism, unspecified type E03.9 Hypothyroidism type: unspecified
[2024-09-21 14:17] VITALS: BP 93/59; PULSE 90; O2SAT 98; BMI 36.8
--- OUTSIDE RECORDS SUMMARY | 2024-09-21 14:53 | XMS_ITS | Clinical Summary ---
Author Organization [facility] Address [address] [place] [address] Phone Care Team Providers Care Employee Communications Intern Name Role Phone Physician, No Pcp Primary Care Provider Unavaila ble Allergies Active Allergy Reactions Criticality Noted Date Comments Egg 10/13/2022 House Dust Mite 03/28/2015 Methylprednisolone Acetate 2 vomiting Oxycodone Other 10/13/2022 Oxycodone-Acetaminophen Nausea And Vomiting 09/2016 Pollen Extracts 03/01/2024 Tramadol Nausea And Vomiting 10/13/2022 Wheat 10/21/2023 Medications adhesive bandage bandage 04/13/19 24 Active alcohol swabs (Alcohol Prep Pads) pads, medicated 05/29/19 22 Active atorvastatin (LIPITOR) 20 mg tablet Take 1 tablet (20 mg total) by mouth 1 (one) time each day. 06/22/19 24 Active dicyclomine (BENTYL) 10 mg capsule Take 2 capsules (20 mg total) by mouth. 06/19/19 24 Active EPINEPHrine (EpiPen 2-[place]) 0.3 mg/0.3 mL injection 05/04/19 22 Active hydrocortisone 2.5 % cream Apply sparingly to affected areas 1 - 2 times a day as needed 12/07/19 20 Active polyethylene glycol (MIRALAX) 17 gram packet Take 17 g by mouth. 01/27/20 23 Active sucralfate (CARAFATE) 100 mg/mL suspension Take 10 mL (1 g total) by mouth. 06/19/19 24 Active triamcinolone (NASACORT) 55 mcg nasal inhaler Administer 1 spray into affected nostril(s). 09/29/19 20 Active betamethasone, augmented, (DIPROLENE-AF) 0.05 % cream APPLY TO LEGS TWICE DAILY NEEDED 09/03/19 24 Active mometasone (ELOCON) 0.1 % ointment APPLY TWICE A DAY TO TRUNK, ARMS AND LEGS, WEAN OFF IMPROVEMENT IS SEEN 10/01/19 24 Active hydrOXYzine HCL (ATARAX) 25 mg tabletIndications: Allergy, unspecified, sequela TAKE 1 TABLET BY MOUTH AT BEDTIME NEEDED FOR ITCHING. 90 tablet 02/22/20 24 Active cetirizine (ZyrTEC) 10 mg tabletIndications: Non-celiac gluten sensitivity,Prurit us, unspecified TAKE 1 TABLET BY MOUTH EVERY DAY 90 tablet 1 04/22/19 25 Active pantoprazole (PROTONIX) 40 mg EC tabletIndications: Gastro-esophageal reflux disease with esophagitis, without bleeding TAKE 1 TABLET BY MOUTH EVERY DAY 90 tablet 04/22/19 25 Active tiotropium (Spiriva Respimat) 1.25 mcg/actuation inhalation sprayIndications:S evere persistent asthma without complication (CMS/HCC V28) Inhale 2 puffs by mouth 1 (one) time each day. 3 each 3 04/27/19 25 025 Active montelukast (SINGULAIR) 10 mg tabletIndications: Severe persistent asthma without complication (CMS/HCC V28) Take 1 tablet (10 mg total) by mouth at bedtime. 90 each 3 04/27/19 25 026 Active fluticasone furoate-vilanteroL (BREO ELLIPTA) 200-25 mcg/dose inhalerIndications :Severe persistent asthma without complication (CMS/HCC V28) Inhale 1 puff by mouth 1 (one) time each day. 3 each 3 04/27/19 25 Active albuterol HFA (PROAIR HFA ; PROVENTIL HFA ; VENTOLIN HFA) 90 mcg/actuation inhalerIndications :Severe persistent asthma without complication (CMS/HCC V28) Inhale 2 puffs by mouth every 6 (six) hours if needed for shortness of breath. 18 g 3 04/27/19 25 Active albuterol 2.5 mg /3 mL (0.083 %) nebulizer solutionIndication s:Severe persistent asthma without complication ([facility] V28) Take 3 mL (2.5 mg total) by nebulization 3 (three) times a day. 300 mL 2 04/27/19 25 Active tirzepatide, weight loss, (Zepbound) 2.5 mg/0.5 mL injection Inject 0.5 mL (2.5 mg total) under the skin every 7 (seven) days. 2 mL 05/21/19 25 Active levothyroxine (SYNTHROID, LEVOTHROID) 112 mcg tabletIndications: Acquired hypothyroidism TAKE ONE (1) TABLET BY MOUTH EVERY DAY 90 tablet 06/30/19 25 Active meclizine (ANTIVERT) 12.5 mg tabletIndications: Dizziness Take 1 tablet (12.5 mg total) by mouth 3 (three) times a day if needed for dizziness. 30 tablet 03/01/19 25 025 Active Problems Problem Noted Date Diagnosed Date Hyperlipidemia 07/24/2023 Anxiety and depression 09/03/2021 Severe persistent asthma ([facility] V28) 2 Overview (11/27/2023): Last Assessment & [...] Encounters Date Type Department Care Team Description 07/27/2024 Telephone Bariatric Surgery - [address] [place] [address] Le Booker PA prior auth (Prior auth) from Last 3 Months Immunizations Name Administration [...] PROCEDURE: HISTORICAL TUBAL LIGATION COLONOSCOPY 03/04/2012 PROCEDURE: [place] COLONOSCOPY FLX DX W/COLLJ SPEC WHEN PFRMD; COMMENT: normal COLONOSCOPY 12/02/2017 PROCEDURE: HISTORICAL COLONOSCOPY; COMMENT: rectal polyp TA polyp ESOPHAGOGASTRODUODENOSCOPY 12/27/2019 PROCEDURE: [place] EGD TRANSORAL BIOPSY SINGLE/MULTIPLE; COMMENT: Dr. Donato - normal-appearing esophagus and duodenum. Stomach had evidence of gastric mucosal congestion. Duodenal biopsy was negative for celiac disease. Gastric biopsy was positive for mild chronic gastritis but negative for H. pylori. COLONOSCOPY 03/27/2021 PROCEDURE: HISTORICAL COLONOSCOPY; COMMENT: tiny polyp ESOPHAGOGASTRODUODENOSCOPY 03/27/2021 PROCEDURE: [place] EGD TRANSORAL BIOPSY SINGLE/MULTIPLE; COMMENT: normal, random stomach biopsy negative. OTHER SURGICAL HISTORY 12/20/2021 PROCEDURE: HISTORICAL TOTAL HYSTERECTOMY W/O BSO; COMMENT: RA, BS CHOLECYSTECTOMY PROCEDURE: [place] LAPAROSCOPY SURG CHOLECYSTECTOMY Medical History Medical History [...] 92 05/03/2024 11:25 AM EDT Temperature 36.6 C (97.8 F) 04/26/2024 3:55 PM EST Respiratory Rate 16 04/26/2024 3:55 PM EST Oxygen Saturation 97% 04/26/2024 3:55 PM EST Inhaled Oxygen Concentration - - Weight 83.5 kg (184 lb) 04/26/2024 3:55 PM EST Height 148.6 cm (4' 10.5 ) 05/03/2024 11:25 AM E DT Body Mass Index 37.16 04/26/2024 3:55 PM EST Plan of Treatment Upcoming Encounters Date Type Department Care Team (Late st Contact Info) Description 11/10/2024 11:00 AM EDT Office Visit Bariatric Surgery - [place] [address] [place] [id number] Le Booker PA [address] [place] [address] 12/07/2024 2:45 PM EDT Office Visit Pulmonolgy - [place] [address] [place] [id number] Hilda Lindsey, BIBI [address] [place] [address] Health Maintenance Due Date Last Done Comments Pneumococcal Vaccine: Pediatrics (0 to 5 Years) and At-Risk Patients (6 to 49 Years) (2 of 2 - PCV) 06/06/2011 06/05/2010 Colorectal Cancer Screening: Colonoscopy 02/01/2022 Social Influencers of Health Screening 02/01/2022 COVID-19 Vaccine ( - season) 2023 01/29/2021, 06/15/2020, 05/24/2020 Hepatitis B Vaccines (2 of 3 - 19+ 3-dose series) 03/31/2024 03/03/2024 Influenza Vaccine (#1) 2024 , 12/12/2021, 02/03/2019, Additional history exists Breast Cancer Screening 12/24/2024 12/24/2022 DTaP,Tdap,and Td Vaccines (2 - Td or Tdap) 11/13/2026 11/13/2016 Cholesterol Screening (Lipid Panel) 07/22/2028 07/23/2023, 07/23/2023 Hepatitis C Screening Completed 07/03/2015 HIV Screening Completed 12/09/2017 Depression Screening Completed 02/29/2024 MMR Vaccines Aged Out 03/03/2024 No longer eligi ble based on patient's age to complete this topic HIB Vaccines Aged Out No longer eligi ble based on patient's age to complete this topic HPV Vaccines Aged Out No longer eligi ble based on patient's age to complete this topic Hepatitis A Vaccines Aged Out No long er eligible based on patient's age to complete [...] Associated Diagnosis Comments LIPID PANEL Routine 07/23/2023 DIAGNOSTIC MAMMOGRAPHY WITH CAD UNILATERAL Routine 12/24/2022 10:34 AM EDT Mastodynia HIV SCREENING Routine 12/09/2017 HEPATITIS C SCREENING Routine 07/03/2015 from Last 3 Months or Most Recently Relevant to Health Maintenance Results * (ABNORMAL) Lipid panel (07/23/2023) LDL/HDL Ratio 4 0 - 4 Triglycerides 59 0 - 150 mg/dL Cholesterol 174 0 - 200 mg/dL HDL 49 >=40 mg/dL LDL Cholesterol 114(A) 0 - 100 mg/dL Blood Venous blood specimen / Unknown Historical Provider LAB BLOOD ORDERABLES Rachele l Result * DIAGNOSTIC MAMMOGRAPHY WITH CAD UNILATERAL (12/24/2022 10:34 AM EDT) Anatomical Region Laterality Modality Mammography 12/08/2022 3:53 PM EDT Narrative 12/24/2022 10:53 AM EDT This is a summary report. The complete report is available in the patient's medical record. If you cannot access the medical record, please contact the sending organization for a detailed fax or copy. BILATERAL 3D DIGITAL DIAGNOSTIC MAMMOGRAM History: Work-up for left lateral breast pain. Family history of breast cancer in mother Comparison: Baseline Technique: Bilateral full-field digital 3D mammography was performed using standard CC and MLO projections, left breast exaggerated cc CAD was used to evaluate this mammogram. Findings: Density: There are scattered areas of fibroglandular density-B RIGHT: No suspicious masses, groups of microcalcification or areas of architectural distortion identified. Typically benign parenchymal asymmetries LEFT: No suspicious masses, groups of microcalcifications or areas of architectural distortion identified. Typically benign parenchymal asymmetries LEFT BREAST TARGETED ULTRASOUND EVALUATION HISTORY: Work-up for left lateral breast pain TECHNIQUE: Ultrasonographic examination is performed using a linear array transducer. Targeted left breast ultrasound was performed from 1:00 to 4:00 in area of clinical pain. Real-time sonographic scanning was also performed by the radiologist FINDINGS: From 1:00 to 4:00, no sonographic evidence of malignancy or other focal abnormalities were identified at the left breast in area of clinical concern.. Impression: No or mammographic sonographic evidence of malignancy BI-RADS Category 2 benign findings Recommendation: Routine annual screening mammography is recommended Procedure Note David Mason MD - 03/31/2023 This is a summary report. The complete report is available in thepatient's medical record. If you cannot access the medical record, pleasecontact the sending organization for a detailed fax or copy. BILATERAL 3D DIGITAL DIAGNOSTIC MAMMOGRAM History: Work-up for left lateral breast pain. Family history of breastcancer in mother Comparison: Baseline Technique: Bilateral full-field digital 3D mammography was performed usingstandard CC and MLO projections, left breast exaggerated cc CAD was used to evaluate this mammogram. Findings: Density: There are scattered areas of fibroglandular density-B RIGHT: No suspicious masses, groups of microcalcification or areas ofarchitectural distortion identified. Typically benign parenchymalasymmetries LEFT: No suspicious masses, groups of microcalcifications or areas ofarchitectural distortion identified. Typically benign parenchymalasymmetries LEFT BREAST TARGETED ULTRASOUND EVALUATION HISTORY: Work-up for left lateral breast pain TECHNIQUE: Ultrasonographic examination is performed using a linear arraytransducer. Targeted left breast ultrasound was performed from 1:00 to4:00 in area of clinical pain. Real-time sonographic scanning was alsoperformed by the radiologist FINDINGS: From 1:00 to 4:00, no sonographic evidence of malignancy or other focalabnormalities were identified at the left breast in area of clinicalconcern.. Impression: No or mammographic sonographic evidence of malignancy BI-RADS Category 2 benign findings Recommendation: Routine annual screening mammography is recommended Yamila Fair PROGRAM SERVICES ASSISTANT IMG BI PROCEDURES Rachele l Result * HIV Screening (12/09/2017) HIV Screening abstracted Historical Provider HEALTH MAINTENANCE Final Result * Hepatitis C Screening (07/03/2015) Hepatitis C Screening abstracted Historical Provider HEALTH MAINTENANCE Final Result from Last 3 Months or Most Recently Relevant to Health Maintenance Insurance [employer] [place] [address] Care Teams Employee Communications Intern Relationship Specialty Start Date End Date Physician, No Pcp PCP - General 09/19/24
--- OUTSIDE RECORDS SUMMARY | 2024-09-21 14:53 | XMS_ITS | Clinical Summary ---
Author Organization [facility] Address [address] [place] [address] Care Team Providers Care Barge Hand Name Role Phone Unavailable Primary Care Provider Unavailabl e Social History Tobacco Use Types Packs/Day Years Used Date Smoking Tobacco: Never Assessed Sex and Gender Information Value Date Recorded Sex Assigned at Female 11/03/2023 2:15 PM EDT Gender Identity Not on file Sexual Orientation Not on file Job Start Date Occupation Industry Not on file Not on file Not on file Plan of Treatment Health Maintenance Due Date Last Done Comments Hepatitis B Vaccines (1 of 3 - 3-dose series) 1984 Hepatitis C Screening 1984 Depression Screening 1996 Preventative Health Evaluation 2002 Cervical Cancer Screening (Pap Smear) 2005 COVID-19 Vaccine ( season) 2023 01/29/2021, 06/15/2020, 05/24/2020 Influenza Vaccine (#1) 2024 2, 02/03/2019, 11/04/2017, Additional history exists DTap / Tdap / Td (2 - Td or Tdap) 11/13/2026 11/13/2016 Pneumococcal Vaccine Aged Out No long er eligible based on patient's age to complete this topic RSV Ped < 20 months Aged Out No longe r eligible based on patient's age to complete this topic Shamir Dominguez Personal/Family Self 1985 [address] [place] [place] [address]
== END 2024-09-21 15:18 | disposition home or self-care (01) ==
LOC: HO.HGI 14:12
PROVIDERS: Visit Provider Nurse Practitioner Family
DX: K58.1 Irritable bowel syndrome with constipation (principal); Z87.19 Personal history of other diseases of the digestive system; K90.41 Non-celiac gluten sensitivity; E03.9 Hypothyroidism, unspecified
CPT/HCPCS: 99204

== ENCOUNTER 2024-09-22 13:57 | Outpatient (REF) | payer OTHER, SELFPAY ==
--- OUTSIDE RECORDS SUMMARY | 2024-09-22 14:07 | XMS_ITS | Clinical Summary ---
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 Physician, No Pcp Primary [...] nebulizer solutionIndication s:Severe persistent asthma without complication ([facility] V28) Take 3 mL (2.5 mg total) [...] Anxiety and depression 09/03/2021 Severe persistent asthma ([facility] V28) 2 Overview (11/27/2023): Last Assessment & [...] Team Description 07/27/2024 Telephone Bariatric Surgery - [address] [place] [address] Le Booker PA prior auth [...] PROCEDURE: HISTORICAL TUBAL LIGATION COLONOSCOPY 03/04/2012 PROCEDURE: FL COLONOSCOPY FLX DX W/COLLJ SPEC WHEN PFRMD; COMMENT: normal COLONOSCOPY 12/02/2017 PROCEDURE: HISTORICAL COLONOSCOPY; COMMENT: rectal polyp TA polyp ESOPHAGOGASTRODUODENOSCOPY 12/27/2019 PROCEDURE: FL EGD TRANSORAL BIOPSY SINGLE/MULTIPLE; COMMENT: Dr. Donato - normal-appearing esophagus and duodenum. Stomach had evidence of gastric mucosal congestion. Duodenal biopsy was negative for celiac disease. Gastric biopsy was positive for mild chronic gastritis but negative for H. pylori. COLONOSCOPY 03/27/2021 PROCEDURE: HISTORICAL COLONOSCOPY; COMMENT: tiny polyp ESOPHAGOGASTRODUODENOSCOPY 03/27/2021 PROCEDURE: FL EGD TRANSORAL BIOPSY SINGLE/MULTIPLE; COMMENT: normal, random stomach biopsy negative. OTHER SURGICAL HISTORY 12/20/2021 PROCEDURE: HISTORICAL TOTAL HYSTERECTOMY W/O BSO; COMMENT: RA, BS CHOLECYSTECTOMY PROCEDURE: FL LAPAROSCOPY SURG CHOLECYSTECTOMY Medical History Medical History [...] AM EDT Office Visit Bariatric Surgery - [place] [address] [place] [id number] Le Booker PA [address] [place] [address] 12/07/2024 2:45 PM EDT Office Visit Pulmonolgy - [place] [address] [place] [id number] Hilda Lindsey, BIBI [address] [place] [address] Health Maintenance Due Date Last Done Comments [...] annual screening mammography is recommended Yamila Fair 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
--- OUTSIDE RECORDS SUMMARY | 2024-09-22 14:07 | XMS_ITS | Clinical Summary ---
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
== END 2024-09-22 13:58 | disposition home or self-care (01) ==
LOC: HO.LAB 13:57
PROVIDERS: Visit Provider Nurse Practitioner Family
DX: K58.1 Irritable bowel syndrome with constipation (principal); K90.41 Non-celiac gluten sensitivity; E03.9 Hypothyroidism, unspecified; Z79.899 Other long term (current) drug therapy; Z87.19 Personal history of other diseases of the digestive system
CPT/HCPCS: 36415; 86364

== ENCOUNTER 2024-10-28 14:23 | Outpatient (AMB) | payer OTHER, SELFPAY ==
[2024-10-28 14:26] VITALS: BP 112/70; PULSE 64; RESP 18; TEMP 36.3; O2SAT 95; BMI 34.9
--- NOTE | 2024-10-28 14:26 | A.OFFPC_ITS ---
Vital Signs 10/28/24 14:26 Height 4 ft 11 in Weight 173 lb BMI 34.9 BP 112/70 Blood Pressure Location Lt brachial Position Sitting Respiration 18 Pulse 64 Pulse Source Pulse Oximeter Temp 97.3 F Temp Source Temporal Artery Scan Pulse Oximetry (%) 95 Oxygen Delivery Method Room Air Intake Visit Reasons: ashtma/RAO/Hypothyroidism Medical Scheduler Required: No Accompanied by: Self / Same As Patient Allergies egg (eggs) Allergy (Intermediate, Verified 10/28/24 14:45) Rash From SOLU-MEDROL Allergy (Unknown, Uncoded 10/28/24 14:45) NAUSEA AND VOMITTING Medication List - Last Reconciled 10/28/24 by SHIV Oneil albuterol sulfate mg continuous nebulization albuterol sulfate 90 mcg/actuation inhalation ammonium lactate 12% appl topical BID PRN atorvastatin 20 mg PO DAILY betamethasone dipropionate 0.05% appl topical BID PRN bisacodyl (Dulcolax (bisacodyl)) 20 mg (4 x 5 mg) PO ONCE 1 day cetirizine 10 mg PO DAILY fluticasone furoate-vilanterol 200-25 mcg/dose (Breo Ellipta) 1 ea inhalation DAILY hydroxyzine HCl 25 mg PO BEDTIME PRN levothyroxine 112 mcg PO DAILY meclizine 12.5 mg PO TID PRN montelukast 10 mg PO DAILY pantoprazole 40 mg PO DAILY PRN polyethylene glycol 3350 (Miralax) 238 grams PO ONCE tiotropium bromide 1.25 mcg/actuation (Spiriva Respimat) 2 puffs inhalation DAILY triamcinolone acetonide 1 spray intranasal DAILY Tobacco use date assessed: 10/28/24 Dental Screening Dental Screen Date: 10/28/24 Did you have a dental visit in the last 12 months?: Yes Did you have a dental problem in the last 6 months where you did not have access to dental care?: No Was dental information given to patient?: Patient has dentist HPI ashtma/RAO/Hypothyroidism HPI Details The patient is a 39-year-old female presenting with management of hypercholesterolemia, hypothyroidism, and sleep apnea, along with addressing vitamin D deficiency and asthma control. The patient has a history of hypercholesterolemia, with recent lab results indicating slightly elevated cholesterol levels. She admits to not taking her cholesterol medication consistently but has recently improved adherence and dietary habits. She is also engaging in regular exercise to manage her cholesterol levels. The patient has a history of hypothyroidism following previous Graves' disease, with a current elevated TSH level. She is on thyroid medication, and her T4 levels are within normal limits. The patient reports feeling tired, which may be related to her thyroid condition or sleep apnea. The patient has been diagnosed with sleep apnea and was supposed to use a CPAP machine. She reports difficulty affording new equipment due to insurance changes at that time. The patient is also experiencing poor sleep quality, which may contribute to her fatigue. The patient has vitamin D deficiency, which may be contributing to her fatigue. She is considering [id number] supplements to address this deficiency. The patient has asthma and uses Breo and Spiriva for management. She reports not needing to use albuterol recently, which she attributes to weight loss and improved asthma control. [facility] Medical History Non-celiac gluten sensitivity IBS (irritable bowel syndrome) History of fatty infiltration of liver Abnormal large bowel motility Lumbar disc herniation Fatty liver Obesity GERD (gastroesophageal reflux disease) Asthma Hypothyroidism Graves disease Surgical History Hx of section Hx of cholecystectomy Family History Other Breast cancer Colon cancer Diabetes Hypercholesteremia Hypertension Social History Housing: House Alcohol intake: never Patient Tobacco Use Status: Former Tobacco user e-Cigarette/Vaping Use: Never Used service: No Current occupational status: employed Current occupational exposures/hazards: Yes Cognitive needs: No Hearing needs: No Questionnaire PHQ-9 Over the last 2 weeks, how often have you been bothered by any of the following problems? 1. Little interest or pleasure in doing things: not at all 2. Feeling down, depressed, or hopeless: nearly every day 3. Trouble falling or staying asleep, or sleeping too much: nearly every day 4. Feeling tired or having little energy: more than half the days 5. Poor appetite or overeating: nearly every day 6. Feeling bad about yourself - or that you are a failure or have let yourself or your family down: nearly every day 7. Trouble concentrating on things, such as reading the newspaper or watching television: more than half the days 8. Moving or speaking so slowly that other people could have noticed. Or the opposite - being so fidgety or restless that you have been moving around a lot more than usual: not at all 9. Thoughts that you would be better off or of hurting yourself in some way: not at all Total score: 16 Depression Screening Interpretation: Positive Depression Screening Done: Yes Source: Developed by Drs. Alessandro Rivera, Desiree Sarabia, Elia Ricketts and colleagues, with an educational vincenzo from [employer]. Thrive Questionnaire Date Thrive assessed: 10/28/24 I am a: Patient What is your living situation today?: I have a steady place to live Within the past 12 months, did the food you bought not last and you didn't have the money to get more?: Sometimes True Within the past 12 months, did you worry whether your food would run out before you got money to buy more?: Often true Do you have trouble paying for medicines?: Yes Do you have trouble getting transportation to medical appointments?: No Do you have trouble paying your heating and electricity bill?: Yes Do you have trouble taking care of your child, family member or friend?: No Do you have trouble with day-to-day activities such as bathing, preparing meals, shopping, managing finances, etc.?: No Are you currently unemployed and looking for a job?: No Are you interested in more education?: Yes Currently or been in a relationship where the following occur: No concerns reported THRIVE Score: 3 AUDIT C Alcohol Use Questionnaire (AUDIT-C) 1. How often do you have a drink containing alcohol?: Monthly or less 2. How many drinks containing alcohol do you have on a typical day when you are drinking?: 3 or 4 3. How often do you have six or more drinks on one occasion?: Less than monthly Total Score: 3 DAYRON-7 AMB Questionnaire DAYRON-7 Date DAYRON - 7 assessed: 10/28/24 Feeling nervous, anxious, or on edge: 2 = More than half the days Not being able to stop or control worryin = Nearly every day Worrying too much about different things: 3 = Nearly every day Trouble relaxin = Nearly every day Being so restless that it is hard to sit still: 3 = Nearly every day Becoming easily annoyed or irritable: 3 = Nearly every day Feeling afraid as if something awful might happen: 3 = Nearly every day Total DAYRON-7 score (0-4 normal; 5-9 mild; 10-14 moderate; 15-21 severe): 20 Source: Developed by Drs. Alessandro Rivera, Desiree Sarabia, Elia Ricketts and colleagues, with an educational vincenzo from [employer]. Review of Systems Const Denies body aches, Denies chills, Reports fatigue, Denies fever(s), Denies headache(s), Reports lethargy and Denies poor appetite Eyes Reports no additional complaints ENT Denies dysphagia, Denies dizziness, Denies headache(s) and Denies odynophagia Card Denies chest pain, Denies syncope, Denies edema, Denies irregular heart rhythm, Denies lightheadedness and Denies dyspnea Resp Denies cough and Denies dyspnea GI Denies abdominal pain, Reports bloating (On and off), Reports constipation (On and off), Denies dysphagia, Reports dyspepsia (On and off), Reports heartburn (Intermittent), Denies diarrhea, Denies nausea, Denies odynophagia and Denies vomiting Reports no additional complaints Musc Reports no additional complaints and Denies abnormal gait Skin/Breast Reports system reviewed and no additional complaints, except as documented Neuro Denies abnormal gait, Denies dizziness, Denies syncope and Denies headache(s) Psych Reports anxiety Endo Reports fatigue Physical exam (Primary Care) Vital Signs: Last Vital Signs Temp 97.3 F 10/28/24 14:26 Pulse 64 10/28/24 14:26 Resp 18 10/28/24 14:26 BP 112/70 10/28/24 14:26 Pulse Ox 95 10/28/24 14:26 Oxygen Delivery Method Room Air 10/28/24 14:26 BMI result Body Mass Index 34.9 Tobacco/Smoking Status: Tobacco use Status Tobacco use date assessed 10/28/24 10/28/24 14:36 Patient Tobacco Use Status Former Tobacco user 10/28/24 14:36 e-Cigarette/Vaping Use Never Used 09/05/25 14:36 PHQ-9: PHQ-9 Score PHQ-9: Total score 16 10/28/24 15:06 Depression Screening Interpretation: Positive Thrive Assessment: Date of Thrive Assessment Date Thrive assessed 10/28/24 10/28/24 14:36 Currently or been in a relationship where the following occur: No concerns reported Const General: cooperative, healthy appearing, comfortable and no acute distress Orientation/consciousness: patient oriented x3 HENMT Head: Yes normocephalic Ears: hearing grossly normal bilaterally General nose exam: Normal external nose present Eyes General: appearance normal, both eyes and all related structures Conjunctivae: conjunctivae normal Neck Neck: Yes full ROM and Yes no lymphadenopathy Resp Effort & Inspection: normal respiratory effort Auscultation: clear to auscultation bilaterally, no crackles, no rales, no rhonchi and no wheezes Cardio Rate: regular rate Rhythm: regular rhythm GI Inspection: Yes obesity Palpation (GI): Soft to palpation and nontender Auscultation: normal bowel sounds Skin General skin exam: no rashes or lesions noted Neuro General: patient oriented x3 Gait exam (Neuro): Normal gait present Extrem General: Yes normal to inspection, Yes full ROM and No edema Psych Affect: normal affect Attitude: cooperative Insight: Good insight present (Psych) Judgement: Good judgement present (Psych) Results Reviewed Results Reviewed: Laboratory Tests 07/22/24 07/22/24 10:06 10:11 WBC 7.2 RBC 4.77 Hgb 13.5 Hct 41.9 MCV 87.8 MCH 28.3 MCHC 32.2 RDW 13.9 Plt Count 345 Sodium 140 Potassium 4.0 Chloride 106 Carbon Dioxide 28 Anion Gap 10 L BUN 10 Creatinine 0.66 Estimated GFR > 60 Fasting Glucose 90 Estimat Average Glucose 117 Hemoglobin A1c % 5.7 Calcium 9.0 Total Bilirubin 0.9 AST 16 ALT 22 Alkaline Phosphatase 58 C-React Prot High Sens 2.3 Total Protein 7.1 Albumin 4.2 Triglycerides 84 Cholesterol 187 LDL Cholesterol, Calc 127 H HDL Cholesterol 44 Vitamin B12 360 25-OH Vitamin D Total 22.7 L Folate 13.7 TSH 5.24 H Free T4 0.90 Urine Color Yellow Urine Appearance Clear Urine pH 6.0 Ur Specific [place] 1.010 Urine Protein Negative Urine Glucose (UA) Negative Urine Ketones Negative Urine Blood Small (1+) H Urine Nitrite Negative Ur Leukocyte Esterase Negative Urine RBC 0-2 Urine WBC 0-5 Ur Squamous Epith Cells 3-5 Urine Bacteria None Seen Hyaline Casts 0-2 Coding Level of Care Code Est Pt Level 4 (42377) Diagnoses Fatty liver K76.0 Gastroesophageal reflux disease, unspecified whether esophagitis present K21.9 Esophagitis presence: esophagitis presence not specified Severe persistent asthma, unspecified whether complicated J45.50 Asthma severity: severe Asthma persistence: persistent Asthma complication type: unspecified Graves disease E05.00 Irritable bowel syndrome with both constipation and diarrhea K58.2 Sleep apnea, unspecified type G47.30 Sleep apnea type: unspecified type Anxiety and depression F41.9; F32.A Class 3 severe obesity with body mass index (BMI) of 50.0 to 59.9 in adult, unspecified obesity type, unspecified whether serious comorbidity present E66.813; Z68.43 Obesity type: unspecified obesity type Obesity classification: adult class 3 (BMI >= 40) Serious obesity comorbidity presence: unspecified whether serious comorbidity present Body mass index: BMI 50.0-59.9 Pure hypercholesterolemia E78.00 Hyperlipidemia type: pure hypercholesterolemia Vitamin D deficiency E55.9 Time Spent (min) 39 Assessment & Plan Assessment & Plan (1) Fatty liver: Code(s): K76.0 - Fatty (change of) liver, not elsewhere classified Category: Medical Plan: History of fatty liver disease. Encouraged to decrease or discontinue alcohol and Tylenol usage to prevent damaging the liver Reinforced low-cholesterol diet and activity as tolerated has proven to decrease fatty liver. Liver enzymes within normal limits. We will continue to monitor. Follow up with GI as scheduled (2) GERD (gastroesophageal reflux disease): Code(s): K21.9 - Gastro-esophageal reflux disease without esophagitis Category: Medical Qualifiers: Esophagitis presence: esophagitis presence not specified Qualified Code(s): K21.9 - Gastro-esophageal reflux disease without esophagitis Plan: Do not eat meals or drink carbonated beverages within 3 hr of bedtime Decrease the amount of fried, fatty, and spicy foods to decrease gastric acid production Raise the head of the bed using 4 to 6-inch blocks, especially if nocturnal symptoms are present Lose weight if indicated; avoid tight-fitting clothing, especially around the waist Avoid foods that relax the Lower esophageal sphincter (chocolate, peppermint, high-fat foods etc.,) Continue pantoprazole 40 mg daily (3) Asthma: Code(s): J45.909 - Unspecified asthma, uncomplicated Category: Medical Qualifiers: Asthma severity: severe Asthma persistence: persistent Asthma complication type: unspecified Qualified Code(s): J45.50 - Severe persistent asthma, uncomplicated Plan: Continue fluticasone furoate-vilanterol 200-25mcg/dose (Breo Ellipta) 1 puff daily, montelukast 10mg daily, Spiriva Respimat 2 puffs inh daily. The patient also has albuterol sulfate via neb and MDI without directions will clarify on next visit. In addition, the patient has Mepollizumab listed on her med list without any cleared direction as well. 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 Referral was placed (4) Graves disease: Code(s): E05.00 - Thyrotoxicosis with diffuse goiter without thyrotoxic crisis or storm Category: Medical Plan: History of Graves disease. Patient is currently on levothyroxine for hypothyroidism for which she thinks is part of the reason of her ongoing weight issue. TSH 5.24 and T4 0.90 on 07/22/2024 Continue levothyroxine 112 mcg daily. The patient was referred to endocrine on her previous visit (5) Irritable bowel syndrome with both constipation and diarrhea: Code(s): K58.2 - Mixed irritable bowel syndrome Category: Medical Plan: Patient reports a history of alternating diarrhea and constipation. Reports that she is sensitive to gluten and eggs. She also reported large bowel abnormal motility. Encouraged FODMAP diet. Follow up with GI as scheduled (6) Sleep apnea: Code(s): G47.30 - Sleep apnea, unspecified Category: Medical Qualifiers: Sleep apnea type: unspecified type Qualified Code(s): G47.30 - Sleep apnea, unspecified Plan: The patient has sleep apnea and uses a CPAP machine. Due to insurance changes, she is experiencing difficulty affording new equipment. A referral to sleep medicine at [facility] has been made to address this issue and optimize her sleep apnea management. (7) Anxiety and depression: Code(s): F41.9 - Anxiety disorder, unspecified; F32.A - Depression, unspecified Category: Medical Plan: Reports having difficulty dealing with her mother passing Encouraged CBT A counseling referral was placed on her previous visit (8) Obesity: Code(s): E66.9 - Obesity, unspecified Category: Medical Qualifiers: Obesity type: unspecified obesity type Obesity classification: adult class 3 (BMI >= 40) Serious obesity comorbidity presence: unspecified whether serious comorbidity present Body mass index: BMI 50.0-59.9 Qualified Code(s): E66.813 - Obesity, class 3; Z68.43 - Body mass index [BMI] 50.0-59.9, adult Plan: Encouraged to exercise for at least 30 minutes a day/5 days a week Healthy eating discussed. Encouraged to eat fruits/vegetables, protein-fish/baked chicken, and to avoid salty/fried foods, sweets, caffeine and carbohydrates. Encouraged to increase water intake 6-8 glasses a day (9) HLD (hyperlipidemia): Code(s): E78.5 - Hyperlipidemia, unspecified Category: Medical Qualifiers: Hyperlipidemia type: pure hypercholesterolemia Qualified Code(s): E78.00 - Pure hypercholesterolemia, unspecified Plan: Triglycerides 84, total cholesterol 187, LDL 127, HDL 44 Discussed lifestyle modifications including dietary changes and physical activity Continue atorvastatin 20 mg daily We will recheck lipid panel in 3 months (10) Vitamin D deficiency: Code(s): E55.9 - Vitamin D deficiency, unspecified Category: Medical Plan: Start cholecalciferol 50 mcg daily Plan Follow-up in 3 months or sooner as needed Orders: Orders Lipid Panel 3 Months E03.9 - Hypothyroidism, unspecified, E05.00 - Thyrotoxicosis with diffuse goiter without thyrotoxic crisis or storm, E66.01 - Morbid (severe) obesity due to excess calories, E66.813 - Obesity, class 3, G47.33 - Obstructive sleep apnea (adult) (pediatric), K76.0 - Fatty (change of) liver, not elsewhere classified, Z68.43 - Body mass index [BMI] 50.0-59.9, adult UA CC w/rflx Micro + Cult 3 Months E03.9 - Hypothyroidism, unspecified, E05.00 - Thyrotoxicosis with diffuse goiter without thyrotoxic crisis or storm, E66.01 - Morbid (severe) obesity due to excess calories, E66.813 - Obesity, class 3, G47.33 - Obstructive sleep apnea (adult) (pediatric), K76.0 - Fatty (change of) liver, not elsewhere classified, Z68.43 - Body mass index [BMI] 50.0-59.9, adult TSH reflex Free T4 3 Months E03.9 - Hypothyroidism, unspecified, E05.00 - Thyrotoxicosis with diffuse goiter without thyrotoxic crisis or storm, E66.01 - Morbid (severe) obesity due to excess calories, E66.813 - Obesity, class 3, G47.33 - Obstructive sleep apnea (adult) (pediatric), K76.0 - Fatty (change of) liver, not elsewhere classified, Z68.43 - Body mass index [BMI] 50.0-59.9, adult Free T4 (Free Thyroxine) 3 Months E03.9 - Hypothyroidism, unspecified, E05.00 - Thyrotoxicosis with diffuse goiter without thyrotoxic crisis or storm, E66.01 - Morbid (severe) obesity due to excess calories, E66.813 - Obesity, class 3, G47.33 - Obstructive sleep apnea (adult) (pediatric), K76.0 - Fatty (change of) liver, not elsewhere classified, Z68.43 - Body mass index [BMI] 50.0-59.9, adult Vitamin D 25-OH Total 3 Months E03.9 - Hypothyroidism, unspecified, E05.00 - Thyrotoxicosis with diffuse goiter without thyrotoxic crisis or storm, E66.01 - Morbid (severe) obesity due to excess calories, E66.813 - Obesity, class 3, G47.33 - Obstructive sleep apnea (adult) (pediatric), K76.0 - Fatty (change of) liver, not elsewhere classified, Z68.43 - Body mass index [BMI] 50.0-59.9, adult Comprehensive [place]. Panel Fast 3 Months E03.9 - Hypothyroidism, unspecified, E05.00 - Thyrotoxicosis with diffuse goiter without thyrotoxic crisis or storm, E66.01 - Morbid (severe) obesity due to excess calories, E66.813 - Obesity, class 3, G47.33 - Obstructive sleep apnea (adult) (pediatric), K76.0 - Fatty (change of) liver, not elsewhere classified, Z68.43 - Body mass index [BMI] 50.0-59.9, adult Referrals Sleep Medicine Referral G47.30 - Sleep apnea, unspecified Medications: New cholecalciferol (vitamin D3) 50 mcg PO DAILY 90 caps 3RF
--- OUTSIDE RECORDS SUMMARY | 2024-10-28 14:47 | XMS_ITS | Clinical Summary ---
Author Organization [facility] Address [address] [place] [address] Phone Care Team Providers Care Courtroom Deputy Name Role Phone Physician, No Pcp Primary [...] 1 (one) time each day. 3 each 04/27/19 25 Active montelukast (SINGULAIR) 10 mg tabletIndications: Severe persistent asthma without complication (CMS/HCC V28) Take 1 tablet (10 mg total) by mouth at bedtime. 90 each 04/27/19 25 026 Active fluticasone furoate-vilanteroL (BREO ELLIPTA) 200-25 mcg/dose inhalerIndications :Severe persistent asthma without complication (CMS/HCC V28) Inhale 1 puff by mouth 1 (one) time each day. 3 each 04/27/19 25 Active albuterol HFA (PROAIR HFA ; PROVENTIL HFA ; VENTOLIN HFA) 90 mcg/actuation inhalerIndications :Severe persistent asthma without complication (CMS/HCC V28) Inhale 2 puffs by mouth every 6 (six) hours if needed for shortness of breath. 18 g 04/27/19 25 Active albuterol 2.5 mg /3 mL (0.083 %) nebulizer solutionIndication s:Severe persistent asthma without complication ([facility]/HCC V28) Take 3 mL (2.5 mg total) [...] EVERY DAY 90 tablet 06/30/19 25 Active Active Problems Problem Noted Date Diagnosed Date Hyperlipidemia 07/24/2023 Anxiety and depression 09/03/2021 Severe persistent asthma ([facility] V[facility]) 2 Overview (11/27/2023): Last [...] to clinic in 3 months for reevaluation. Immunizations Name Administration Dates Next Due Influenza [...] PROCEDURE: HISTORICAL TUBAL LIGATION COLONOSCOPY 03/04/2012 PROCEDURE: [place] COLONOSCOPY FLX DX W/COLLJ SPEC WHEN PFRMD; COMMENT: normal COLONOSCOPY 12/02/2017 PROCEDURE: HISTORICAL COLONOSCOPY; COMMENT: rectal polyp TA polyp ESOPHAGOGASTRODUODENOSCOPY 12/27/2019 PROCEDURE: [place] EGD TRANSORAL BIOPSY SINGLE/MULTIPLE; COMMENT: Dr. Donato - normal-appearing esophagus and duodenum. Stomach had evidence of gastric mucosal congestion. Duodenal biopsy was negative for celiac disease. Gastric biopsy was positive for mild chronic gastritis but negative for H. pylori. COLONOSCOPY 03/27/2021 PROCEDURE: HISTORICAL COLONOSCOPY; COMMENT: tiny polyp ESOPHAGOGASTRODUODENOSCOPY 03/27/2021 PROCEDURE: [place] EGD TRANSORAL BIOPSY SINGLE/MULTIPLE; COMMENT: normal, random stomach biopsy negative. OTHER SURGICAL HISTORY 12/20/2021 PROCEDURE: HISTORICAL TOTAL HYSTERECTOMY W/O BSO; COMMENT: RAH, BS CHOLECYSTECTOMY PROCEDURE: [place] LAPAROSCOPY SURG CHOLECYSTECTOMY Medical History Medical History [...] AM EDT Office Visit Bariatric Surgery - [place] [address] [place] [address] Le Booker PA [address] [place] [phone] 12/07/2024 2:45 PM EDT Office Visit Pulmonolgy - [place] [address] [place] [address] Hilda Lindsey NP [address] [place] [address] Health Maintenance Due Date Last Done Comments Pneumococcal Vaccine: Pediatrics (0 to 5 Years) and At-Risk Patients (6 to 49 Years) (2 of 2 - PCV) 06/06/2011 06/05/2010 Colorectal Cancer Screening: Colonoscopy 02/01/2022 Social Influencers of Health Screening 02/01/2022 Hepatitis B Vaccines (2 of 3 - 19+ 3-dose series) 03/31/2024 03/03/2024 COVID-19 Vaccine (4 - season) 2024 01/29/2021, 06/15/2020, 05/24/2020 Influenza Vaccine (#1) 2024 , 12/12/2021, 02/03/2019, [...] Venous blood specimen / Unknown Historical Provider MD LAB BLOOD ORDERABLES Rachele l Result * [...] annual screening mammography is recommended Yamila Fair NP IMG BI PROCEDURES Rachele l Result * HIV Screening (12/09/2017) HIV Screening abstracted Historical Provider HEALTH MAINTENANCE Final Result * Hepatitis C Screening (07/03/2015) Hepatitis C Screening abstracted Historical Provider HEALTH MAINTENANCE Final Result from Last 3 Months or Most Recently Relevant to Health Maintenance Insurance [place] [employer] [facility] Care Teams Courtroom Deputy Relationship Specialty Start Date End Date Physician, No Pcp PCP - General 09/19/24
--- OUTSIDE RECORDS SUMMARY | 2024-10-28 14:47 | XMS_ITS | Clinical Summary ---
Author Organization [facility] Address [address] [place] [address] Care Team Providers Care Truck Despatcher Name Role Phone Unavailable Primary Care Provider [...] (Pap Smear) 2005 COVID-19 Vaccine ( season) 2024 01/29/2021, 06/15/2020, 05/24/2020 Influenza Vaccine [...] topic Shamir Dominguez Personal/Family Self 1985 [address] [place] [address]
== END 2024-10-28 15:19 | disposition home or self-care (01) ==
LOC: HO.HMCH 14:24
DX: J45.50 Severe persistent asthma, uncomplicated (principal); K76.0 Fatty (change of) liver, not elsewhere classified; Z68.43 Body mass index [BMI] 50.0-59.9, adult; E66.813 Obesity, class 3; K21.9 Gastro-esophageal reflux disease without esophagitis; E05.00 Thyrotoxicosis with diffuse goiter without thyrotoxic crisis or storm; K58.2 Mixed irritable bowel syndrome; G47.30 Sleep apnea, unspecified; F41.9 Anxiety disorder, unspecified; F32.A Depression, unspecified; E78.00 Pure hypercholesterolemia, unspecified; E55.9 Vitamin D deficiency, unspecified

== ENCOUNTER 2024-11-04 08:35 | Outpatient (AMB) | payer OTHER, SELFPAY ==
--- OUTSIDE RECORDS SUMMARY | 2024-11-04 09:09 | XMS_ITS | Clinical Summary ---
Author Organization [facility] Address [address] [place] [address] Phone Care Team Providers Care Lawn Mower Mechanic Name Role Phone Physician, No Pcp Primary [...] nebulizer solutionIndication s:Severe persistent asthma without complication ([facility]/HCC V28) Take 3 mL (2.5 [...] Anxiety and depression 09/03/2021 Severe persistent asthma ([facility] V28) 2 Overview (11/27/2023): Last Assessment & [...] W/O BSO; COMMENT: RAH, BS CHOLECYSTECTOMY PROCEDURE: [place] LAPAROSCOPY SURG CHOLECYSTECTOMY [...] AM EDT Office Visit Bariatric Surgery - [place] [address] [facility] [address] [place] [address] Le Booker PA [address] [place] [phone] 12/07/2024 2:45 PM EDT Office Visit Pulmonolgy - [place] [address] [facility] [address] [place] [address] Hilda Lindsey NP [address] [place] [address] Health Maintenance Due Date Last Done Comments [...] Most Recently Relevant to Health Maintenance Insurance [employer] [facility] Care Teams Lawn Mower Mechanic Relationship Specialty Start Date End Date Physician, No Pcp PCP - General 09/19/24
--- OUTSIDE RECORDS SUMMARY | 2024-11-04 09:09 | XMS_ITS | Clinical Summary ---
Author Organization [facility] Address [address] [place] [address] Care Team Providers Care Mannequin Maker Name Role Phone Unavailable Primary Care Provider [...] topic Shamir Dominguez Personal/Family Self 1985 [address] [facility] [place] [address]
[2024-11-04 17:51] VITALS: BMI 34.9
--- NOTE | 2024-11-04 17:51 | A.OFFVIS_ITS ---
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 Allergies egg (eggs) Allergy (Intermediate, Verified 11/04/24 17:54) Rash From SOLU-MEDROL Allergy (Unknown, Uncoded 11/04/24 17:54) NAUSEA AND VOMITTING Medication List - Last Reconciled 11/04/24 by Anam Forde MD albuterol sulfate mg continuous nebulization albuterol sulfate 90 mcg/actuation inhalation ammonium lactate 12% appl topical BID PRN atorvastatin 20 mg PO DAILY betamethasone dipropionate 0.05% appl topical BID PRN bisacodyl (Dulcolax (bisacodyl)) 20 mg (4 x 5 mg) PO ONCE 1 day cetirizine 10 mg PO DAILY cholecalciferol (vitamin D3) 50 mcg PO DAILY fluticasone furoate-vilanterol 200-25 mcg/dose (Breo Ellipta) 1 ea inhalation DAILY hydroxyzine HCl 25 mg PO BEDTIME PRN levothyroxine 112 mcg PO DAILY meclizine 12.5 mg PO TID PRN montelukast 10 mg PO DAILY pantoprazole 40 mg PO DAILY PRN polyethylene glycol 3350 (Miralax) 238 grams PO ONCE tiotropium bromide 1.25 mcg/actuation (Spiriva Respimat) 2 puffs inhalation DAILY triamcinolone acetonide 1 spray intranasal DAILY HPI HPI TV MANAGER 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 She would qualify for bariatric surgery but she had four operations recently and she experienced difficult recoveries especially from her back surgery and she does not wish to undergo surgery again. [facility] Medical History (Updated 11/04/24 @ 18:00 by Anam Forde MD) Sleep apnea treated with continuous positive airway pressure (CPAP) BMI 37.0-37.9, adult Non-celiac gluten sensitivity IBS (irritable bowel syndrome) History of fatty infiltration of liver Abnormal large bowel motility Lumbar disc herniation Fatty liver Obesity GERD (gastroesophageal reflux disease) Asthma Hypothyroidism Graves disease Surgical History Hx of section Hx of cholecystectomy Family History Other Breast cancer Colon cancer Diabetes Hypercholesteremia Hypertension Social History Housing: House Alcohol intake: never Patient Tobacco Use Status: Former Tobacco user e-Cigarette/Vaping Use: Never Used service: No Current occupational status: employed Current occupational exposures/hazards: Yes Cognitive needs: No Hearing needs: No Telehealth Telehealth Telehealth Platform: Telephone Location of provider rendering services: practice address Location of patient: address on file Patient Identification confirmed using: Name, : Yes Telehealth method: voice only Patient verbally consented to treatment: Yes Patient verbally consented to billing insurance company: Yes Patient informed of any privacy concerns related to visit: Yes Minutes spent on Phone/Video with Pt.: 60 Assessment & Plan Assessment & Plan (1) Obesity: Code(s): E66.9 - Obesity, unspecified Category: Medical Qualifiers: Obesity type: unspecified obesity type Obesity classification: adult class 3 (BMI >= 40) Serious obesity comorbidity presence: unspecified whether serious comorbidity present Body mass index: BMI 50.0-59.9 Qualified Code(s): E66.813 - Obesity, class 3; Z68.43 - Body mass index [BMI] 50.0-59.9, adult Plan: 1. We discussed in detail the available therapeutic options: 1) GLP-1 medications 2)? We also discussed our lifestyle program which is very effective and you can lose on average 10% of your initial weight but you won't be able to lose the amount of weight you need to lose, 3) We also discussed about the?? lap sleeve gastrectomy. I emphasized the importance of close follow-up, adherence to instructions and good communication. The surgery does not replace the need to change your lifestlyle which is the cause of the obesity problem. The surgery provides the motivation to try again to change your lifestyle, it reduces the appetite and make the transition to a better lifestyle easier and doubles the amount of weight you would lose compared to doing the lifestyle change without the surgery. You will need to be on a liquid diet with protein shakes for 2 weeks before surgery to maximize weight loss and boost your nutritional status to recover better from surgery and also for the first two weeks after surgery to let the stomach heal before we introduce other foods. After the first 2 weeks we will introduce protein bars and soft foods like scrambled eggs, cottage cheese and yogurt and after the 6th week will introduce meat, fish and cooked vegetables in small amounts. Over time you should be able to eat everything in small amounts. Side effects like nausea, vomiting, heartburn or abdominal pain are not common in the practice unless you are not following in the practice. This operation requires lifetime commitment to following in our practice and communication with me. You will much less weight and experience side effects if you don?t communicate or not following in the practice. Complications are rare and in our practice is about 1/10 of the national average. Also once you lose the weight, if you are interested in a tummy tuck (panniculectomy in medical terms), your insurance will cover it and I can do this procedure for you as well. The patient is interested in trying the GLP-1 medications. 2. ?I ordered a medication to help you with the weight loss which is called Zepbound. My office will try to authorize it. Please let me know when you receiv e it so I can give you a meal and exercise plan. Please let me know when you have one injection left so I can prescribe the next dose.Common side effects include nausea, vomiting, constipation, diarrhea, abdominal pain. Please let me know if you develop any of these symptoms. Medications: New tirzepatide (weight loss) (Zepbound) for 4 weeks 2.5 mg (0.5 mL) subcut QWEEK 2 mL 0RF E66.813 - Obesity, class 3, E78.00 - Pure hypercholesterolemia, unspecified, G47.30 - Sleep apnea, unspecified, Z68.37 - Body mass index [BMI] 37.0-37.9, adult, Z68.43 - Body mass index [BMI] 50.0-59.9, adult
== END 2024-11-04 18:00 | disposition home or self-care (01) ==
LOC: HO.HBS 08:35
PROVIDERS: Visit Provider Surgery
DX: E66.9 Obesity, unspecified (principal); Z68.34 Body mass index [BMI] 34.0-34.9, adult
CPT/HCPCS: 99205

== ENCOUNTER 2024-11-08 14:04 | Outpatient (AMB) | payer OTHER, SELFPAY ==
[2024-11-08 14:11] VITALS: BP 100/74; PULSE 89; O2SAT 98; BMI 35.5
--- NOTE | 2024-11-08 14:11 | MHC.OFFVIS ---
Vital Signs 11/08/24 14:11 Height 4 ft 11 in Weight 175 lb 14.862 oz BMI 35.5 BP 100/74 Blood Pressure Location Lt brachial Position Sitting Pulse 89 Pulse Source Pulse Oximeter Pulse Oximetry (%) 98 Oxygen Delivery Method Room Air Intake Visit Reasons: Hypothyroidism, unspecified Intake Note: New patient present today for Hypothyroidism, unspecified. Aircraft Seat Upholsterer Required: No Accompanied by: Self / Same As Patient Allergies egg (eggs) Allergy (Intermediate, Verified 11/08/24 14:15) Rash From SOLU-MEDROL Allergy (Unknown, Uncoded 11/08/24 14:15) NAUSEA AND VOMITTING Medication List - Last Reconciled 11/08/24 by Rika Best MD albuterol sulfate mg continuous nebulization albuterol sulfate 90 mcg/actuation inhalation ammonium lactate 12% appl topical BID PRN atorvastatin 20 mg PO DAILY betamethasone dipropionate 0.05% appl topical BID PRN bisacodyl (Dulcolax (bisacodyl)) 20 mg (4 x 5 mg) PO ONCE 1 day cetirizine 10 mg PO DAILY cholecalciferol (vitamin D3) 50 mcg PO DAILY fluticasone furoate-vilanterol 200-25 mcg/dose (Breo Ellipta) 1 ea inhalation DAILY hydroxyzine HCl 25 mg PO BEDTIME PRN levothyroxine 112 mcg PO DAILY meclizine 12.5 mg PO TID PRN montelukast 10 mg PO DAILY pantoprazole 40 mg PO DAILY PRN polyethylene glycol 3350 (Miralax) 238 grams PO ONCE tiotropium bromide 1.25 mcg/actuation (Spiriva Respimat) 2 puffs inhalation DAILY tirzepatide (weight loss) (Zepbound) 2.5 mg (0.5 mL) subcut QWEEK triamcinolone acetonide 1 spray intranasal DAILY HPI Comments Details: 39-year-old female coming in today for initial evaluation of hypothyroidism. History of Graves disease, had thyroid storm in 2013, s/p TOVAR ablation 2013 Currently on levothyroxine 112 mcg daily, been on that dose for 5 years, started in 2013. Patient currently denies heat or cold intolerance, palpitation, anxiety, mood changes, changes in appearance of eyes or vision changes, tremors, increased diaphoresis or dry skin. ? Diagnosed IBS, intermittent constipation and diarrhea Hair loss Skin rashes Lost 10 lbs since June 2024, due to intermittent fasting and calorie counting some tiredness No history of thyroid eye disease ,sees ophthalmology Patient denies any difficulty swallowing, pain on swallowing or voice changes or difficulty breathing. Patient denies any history of childhood neck radiation. Denies having ever used lithium, amiodarone or biotin supplements. Maternal aunt thyroid cancer. doing well. Aunt and sister from paternal side some thyroid disease. Works at [employer] at [employer] Quit smoking 2023, smoked for 20 years , 6 cigarettes a day Physical exam General: sitting comfortably in no acute distress HEENT: normocephalic/atraumatic, Neck: supple, symmetrical, no thyromegaly , Cardiac: normal heart sounds Pulm: normal breath sounds B/L, no added breath sounds Abd: not distended, Laboratory Tests 07/22/24 10:11 TSH 5.24 H Free T4 0.90 PFSH Medical History (Updated 11/04/24 @ 18:00 by Anam Forde MD) Sleep apnea treated with continuous positive airway pressure (CPAP) BMI 37.0-37.9, adult Non-celiac gluten sensitivity IBS (irritable bowel syndrome) History of fatty infiltration of liver Abnormal large bowel motility Lumbar disc herniation Fatty liver Obesity GERD (gastroesophageal reflux disease) Asthma Hypothyroidism Graves disease Surgical History Hx of section Hx of cholecystectomy Family History Other Breast cancer Colon cancer Diabetes Hypercholesteremia Hypertension Social History Housing: House Alcohol intake: never Patient Tobacco Use Status: Former Tobacco user e-Cigarette/Vaping Use: Never Used service: No Current occupational status: employed Current occupational exposures/hazards: Yes Cognitive needs: No Hearing needs: No Physical Exam Vital Signs: Last Vital Signs Pulse 89 11/08/24 14:11 BP 100/74 11/08/24 14:11 Pulse Ox 98 11/08/24 14:11 Oxygen Delivery Method Room Air 11/08/24 14:11 BMI result Body Mass Index 35.5 Assessment & Plan Assessment & Plan (1) Hypothyroidism: Code(s): E03.9 - Hypothyroidism, unspecified Category: Medical Qualifiers: Hypothyroidism type: unspecified Qualified Code(s): E03.9 - Hypothyroidism, unspecified Plan: 39-year-old female coming in today for initial evaluation of hypothyroidism. History of Graves disease status post radioactive iodine ablation 2013. Currently on levothyroxine 112 mcg daily. TSH from June 2024 was mildly elevated. We will repeat blood work now since it has been 4 months. Plan: -ordered TSH, free T4 to be done now we will reach out with the results and FNA dose changes are needed -continue levothyroxine 112 mcg daily -follow up in 6 months Plan I spent 45 minutes in reviewing the record, seeing the patient and documenting in the medical record. Orders: Orders Thyroid Stimulating Hormone Today E03.9 - Hypothyroidism, unspecified Free T4 (Free Thyroxine) Today E03.9 - Hypothyroidism, unspecified Patient Instructions: do blood work , we will reach out with results Continue levothyroxine 112 mcg for now Follow up in 6 months Coding Level of Care Code New Pt Level 4 (28208) Diagnoses Hypothyroidism, unspecified type E03.9 Hypothyroidism type: unspecified Time Spent (min) 45
--- OUTSIDE RECORDS SUMMARY | 2024-11-08 17:53 | XMS_ITS | Clinical Summary ---
Author Organization [facility] Address [address] [place] [address] Phone Care Team Providers Care Golf Technician Name Role Phone Physician, No Pcp Primary [...] nebulizer solutionIndication s:Severe persistent asthma without complication ([facility]/HCC V28) Take 3 mL (2.5 mg total) [...] Anxiety and depression 09/03/2021 Severe persistent asthma ([facility] V28) 2 Overview (11/27/2023): Last Assessment & [...] PROCEDURE: HISTORICAL TUBAL LIGATION COLONOSCOPY 03/04/2012 PROCEDURE: [place] COLONOSCOPY FLX DX W/COLLJ SPEC WHEN PFRMD; COMMENT: normal COLONOSCOPY 12/02/2017 PROCEDURE: HISTORICAL COLONOSCOPY; COMMENT: rectal polyp TA polyp ESOPHAGOGASTRODUODENOSCOPY 12/27/2019 PROCEDURE: [place] EGD TRANSORAL BIOPSY SINGLE/MULTIPLE; COMMENT: Dr. Donato - normal-appearing esophagus and duodenum. Stomach had evidence of gastric mucosal congestion. Duodenal biopsy was negative for celiac disease. Gastric biopsy was positive for mild chronic gastritis but negative for H. pylori. COLONOSCOPY 03/27/2021 PROCEDURE: HISTORICAL COLONOSCOPY; COMMENT: tiny polyp ESOPHAGOGASTRODUODENOSCOPY 03/27/2021 PROCEDURE: [place] EGD TRANSORAL BIOPSY SINGLE/MULTIPLE; COMMENT: normal, random stomach biopsy negative. OTHER SURGICAL HISTORY 12/20/2021 PROCEDURE: HISTORICAL TOTAL HYSTERECTOMY W/O BSO; COMMENT: RAH, BS CHOLECYSTECTOMY PROCEDURE: [place] LAPAROSCOPY SURG CHOLECYSTECTOMY Medical History Medical History [...] Care Team (Late st Contact Info) Description 12/07/2024 2:45 PM EDT Office Visit Pulmonolgy - [place] [address] [place] [address] Hilda Lindsey NP [address] [place] [phone] Health Maintenance Due Date Last Done Comments Pneumococcal Vaccine: Pediatrics (0 to 5 Years) and At-Risk Patients (6 to 49 Years) (2 of 2 - PCV) 06/06/2011 06/05/2010 Colorectal Cancer Screening: Colonoscopy 02/01/2022 Social Influencers of Health Screening 02/01/2022 Hepatitis B Vaccines (2 of 3 - 19+ 3-dose series) 03/31/2024 03/03/2024 COVID-19 Vaccine (4 - 2024- season) 2024 01/29/2021, 06/15/2020, 05/24/2020 Influenza Vaccine [...] mg/dL Blood Venous blood specimen / Unknown us Historical Provider MD LAB BLOOD ORDERABLES Rachele [...] annual screening mammography is recommended Yamila Fair INJECTION MOLDING SUPERVISOR IMG BI PROCEDURES Rachele l Result * HIV Screening (12/09/2017) HIV Screening abstracted Historical Provider HEALTH MAINTENANCE Final Result * Hepatitis C Screening (07/03/2015) Hepatitis C Screening abstracted Historical Provider HEALTH MAINTENANCE Final Result from Last 3 Months or Most Recently Relevant to Health Maintenance Insurance [employer] [facility] Care Teams Golf Technician Relationship Specialty Start Date End Date Physician, No Pcp PCP - General 09/19/24
== END 2024-11-08 14:35 | disposition home or self-care (01) ==
LOC: HO.ENCR 14:05
PROVIDERS: Visit Provider Student in an Organized Health Care Education/Training Program
DX: E03.9 Hypothyroidism, unspecified (principal)
CPT/HCPCS: 99204

== ENCOUNTER 2024-11-09 12:24 | Outpatient (REF) | payer OTHER, SELFPAY ==
[2024-11-09 13:49] LABS: Free T4 (Free Thyroxine) 1.19 ng/dL (0.71-1.85); Thyroid Stimulating Hormone 0.18 uIU/mL (0.32-4.0)
--- OUTSIDE RECORDS SUMMARY | 2024-11-09 15:51 | XMS_ITS | Clinical Summary ---
Author Organization [facility] Address [address] [place] [address] Care Team Providers Care Field Seismologist Name Role Phone Unavailable Primary Care Provider [...] topic Shamir Dominguez Personal/Family Self 1985 [address] [place] [address]
--- OUTSIDE RECORDS SUMMARY | 2024-11-09 15:51 | XMS_ITS | Clinical Summary ---
Author Organization [facility] Address [address] [place] [address] Phone Care Team Providers Care Bobbin Inspector Name Role Phone Physician, No Pcp Primary [...] s:Severe persistent asthma without complication ([facility]/HCC V28) Take 3 mL (2.5 mg total) [...] depression 09/03/2021 Severe persistent asthma ([facility] V28) 2 Overview (11/27/2023): Last Assessment & [...] PROCEDURE: HISTORICAL TUBAL LIGATION COLONOSCOPY 03/04/2012 PROCEDURE: [place] COLONOSCOPY FLX DX W/COLLJ SPEC WHEN PFRMD; COMMENT: normal COLONOSCOPY 12/02/2017 PROCEDURE: HISTORICAL COLONOSCOPY; COMMENT: rectal polyp TA polyp ESOPHAGOGASTRODUODENOSCOPY 12/27/2019 PROCEDURE: [place] EGD TRANSORAL BIOPSY SINGLE/MULTIPLE; COMMENT: Dr. Donato - normal-appearing esophagus and duodenum. Stomach had evidence of gastric mucosal congestion. Duodenal biopsy was negative for celiac disease. Gastric biopsy was positive for mild chronic gastritis but negative for H. pylori. COLONOSCOPY 03/27/2021 PROCEDURE: HISTORICAL COLONOSCOPY; COMMENT: tiny polyp ESOPHAGOGASTRODUODENOSCOPY 03/27/2021 PROCEDURE: [place] EGD TRANSORAL BIOPSY SINGLE/MULTIPLE; COMMENT: normal, random stomach biopsy negative. OTHER SURGICAL HISTORY 12/20/2021 PROCEDURE: HISTORICAL TOTAL HYSTERECTOMY W/O BSO; COMMENT: RAH, BS CHOLECYSTECTOMY PROCEDURE: [place] LAPAROSCOPY SURG CHOLECYSTECTOMY Medical History Medical History [...] 2:45 PM EDT Office Visit Pulmonolgy - [place] [address] [place] [address] Hilda Lindsey NP [address] [place] [phone] Health Maintenance Due Date Last Done [...] annual screening mammography is recommended Yamila Fair PRINCIPAL ELECTRICAL ENGINEER IMG BI PROCEDURES Rachele l Result * HIV Screening (12/09/2017) HIV Screening abstracted Historical Provider HEALTH MAINTENANCE Final Result * Hepatitis C Screening (07/03/2015) Hepatitis C Screening abstracted Historical Provider HEALTH MAINTENANCE Final Result from Last 3 Months or Most Recently Relevant to Health Maintenance Insurance [employer] [facility] Care Teams Bobbin Inspector Relationship Specialty Start Date End Date Physician, No Pcp PCP - General 09/19/24
== END 2024-11-09 12:25 | disposition home or self-care (01) ==
LOC: HO.LAB 12:24
PROVIDERS: Visit Provider Student in an Organized Health Care Education/Training Program
DX: E03.9 Hypothyroidism, unspecified (principal)
CPT/HCPCS: 36415; 84439; 84443

== ENCOUNTER 2024-11-25 10:49 | Outpatient (REF) | payer OTHER, SELFPAY ==
--- NOTE | ~2024-11-25 | US_ITS ---
CLINICAL HISTORY: Z87.19 - Personal history of other diseases of the digestive system --- Additional Notes or Special Instructions: evaluate fatty liver US abdomen complete Comparison: None provided Findings: The visualized pancreas is normal. The aorta and inferior vena cava are normal caliber. The appearance of the liver suggests fatty infiltration. Right lobe length is 16.8 cm. There is no intrahepatic bile duct dilatation. The common duct is 3.0 mm in diameter. The gallbladder is normal. There is no sonographic Cervantes sign. The main portal vein is antegrade. The right kidney is 10.9 cm in length. The left kidney is 11 cm in length. There are bilateral renal Bosniak 1 cysts, largest on the right measuring 4.6 x 4.3 x 3.9 cm. The spleen is 8.4 cm in length. No ascites. IMPRESSION: 1. Hepatic steatosis. This document has been electronically signed by: Mendoza Peace MD on 11/26/2024 09:08:13
--- OUTSIDE RECORDS SUMMARY | 2024-11-25 11:51 | XMS_ITS | Clinical Summary ---
Author Organization [facility] Address [address] [place] [address] Phone Care Team Providers Care Blender/Braze Applicator Name Role Phone Physician, No Pcp Primary [...] nebulizer solutionIndication s:Severe persistent asthma without complication ([facility]/HCC V28) Take 3 mL (2.5 mg total) [...] Anxiety and depression 09/03/2021 Severe persistent asthma ([facility] V28) 2 Overview (11/27/2023): Last Assessment & [...] clinic in 3 months for reevaluation. Immunizations Immunization Administration Dates Next Due Influenza Quadravalent, MDCK [...] PROCEDURE: HISTORICAL TUBAL LIGATION COLONOSCOPY 03/04/2012 PROCEDURE: NE COLONOSCOPY FLX DX W/COLLJ SPEC WHEN PFRMD; COMMENT: normal COLONOSCOPY 12/02/2017 PROCEDURE: HISTORICAL COLONOSCOPY; COMMENT: rectal polyp TA polyp ESOPHAGOGASTRODUODENOSCOPY 12/27/2019 PROCEDURE: NE EGD TRANSORAL BIOPSY SINGLE/MULTIPLE; COMMENT: Dr. Donato - normal-appearing esophagus and duodenum. Stomach had evidence of gastric mucosal congestion. Duodenal biopsy was negative for celiac disease. Gastric biopsy was positive for mild chronic gastritis but negative for H. pylori. COLONOSCOPY 03/27/2021 PROCEDURE: HISTORICAL COLONOSCOPY; COMMENT: tiny polyp ESOPHAGOGASTRODUODENOSCOPY 03/27/2021 PROCEDURE: NE EGD TRANSORAL BIOPSY SINGLE/MULTIPLE; COMMENT: normal, random stomach biopsy negative. OTHER SURGICAL HISTORY 12/20/2021 PROCEDURE: HISTORICAL TOTAL HYSTERECTOMY W/O BSO; COMMENT: RAH, BS CHOLECYSTECTOMY PROCEDURE: NE LAPAROSCOPY SURG CHOLECYSTECTOMY Medical History Medical History [...] Description 12/07/2024 2:45 PM EDT Office Visit Pulmonology - [place] [address] [facility] [address] [place] [address] Hilda Lindsey NP [address] [place] [phone] Health Maintenance Due Date Last Done Comments Colorectal Cancer Screening: Colonoscopy 1985 Pneumococcal Vaccine: Pediatrics (0 to 5 Years) and At-Risk Patients (6 to 49 Years) (2 of 2 - PCV) 06/06/2011 06/05/2010 HPV Vaccines (1 - 3-dose SCDM series) 08/09/2011 Social Influencers of Health Screening 02/01/2022 Hepatitis B Vaccines (2 of 3 - 19+ 3-dose series) 03/31/2024 03/03/2024 COVID-19 Vaccine (4 - season) 2024 01/29/2021, 06/15/2020, 05/24/2020 Influenza Vaccine (#1) 2024 , 12/12/2021, 02/03/2019, Additional history exists Breast Cancer Screening 12/24/2024 12/24/2022 DTaP,Tdap,and Td Vaccines (2 - Td or Tdap) 11/13/2026 11/13/2016 Cholesterol Screening (Lipid Panel) 07/22/2028 07/23/2023, 07/23/2023 RSV Immunization Adult Patients (1 - 1-dose 75+ series) 08/09/2059 Hepatitis C Screening Completed 07/03/2015 HIV Screening [...] UNILATERAL Routine 12/24/2022 10:34 AM EDT Mastodynia HM HIV SCREENING Routine 12/09/2017 HEPATITIS C SCREENING [...] blood specimen / Unknown us Historical Provider LAB BLOOD ORDERABLES Rachele l [...] Result * Hepatitis C Screening (07/03/2015) Pathologist [facility] Hepatitis C Screening abstracted Historical Provider HEALTH MAINTENANCE Final Result from Last 3 Months or Most Recently Relevant to Health Maintenance Insurance [employer] [place] Care Teams Blender/Braze Applicator Relationship Specialty Start Date End Date Physician, No Pcp PCP - General 09/19/24
--- OUTSIDE RECORDS SUMMARY | 2024-11-25 11:51 | XMS_ITS | Clinical Summary ---
Author Organization [facility] Address [address] [place] [address] Care Team Providers Care Family And Consumer Education Teacher Name Role Phone Unavailable Primary Care Provider [...] Self 1985 [address] [place] [address]
== END 2024-11-25 10:50 | disposition home or self-care (01) ==
LOC: HO.US 10:49
PROVIDERS: Visit Provider Nurse Practitioner Family
DX: Z87.19 Personal history of other diseases of the digestive system (principal)
CPT/HCPCS: 76700

== ENCOUNTER → 2024-11-25 10:50 | Outpatient (BNV) | payer OTHER, SELFPAY | PROVIDERS: Visit Provider Specialist | DX: K76.0 Fatty (change of) liver, not elsewhere classified (principal) | CPT/HCPCS: 76700 ==

== ENCOUNTER 2024-11-28 14:20 | Outpatient (AMB) | payer OTHER, SELFPAY ==
--- NOTE | 2024-11-28 14:32 | MHC.OFFVIS ---
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 Patient has been diagnosed with sleep apnea and was supposed to use a CPAP machine. She reports difficulty affording new equipment due to insurance changes at that time. The patient is also experiencing poor sleep quality, which may contribute to her fatigue. Patient states has machine but no supplies as ins at the time didnt cover. Patient last sleep study was done through SMS(record requested) Accompanied by: Self / Same As Patient Allergies egg (eggs) Allergy (Intermediate, Verified 11/28/24 14:35) Rash From SOLU-MEDROL Allergy (Unknown, Uncoded 11/08/24 14:15) NAUSEA AND VOMITTING HPI Comments Details: 39 year old female presents for an evaluation of obstruction sleep apnea, she is referred to us by his pcp. In 2018, she had a HST and it was c/w AHI of 5/ hr and oxygen desaturation to <90 for 2 mins. She had mild RAO, then she was followed by [facility] / ENT had polyps removed from her r/l nares bilaterally due to congestion in nasal cavity. She has been on cpap therapy for over 5 years now. She used to have nightmares and moderate to severe asthma attacks on 3 medications. She notices improvement since using her machine she has been feeling more productive and energetic. If she forgets her cpap machine she snores, and gasps for air, she wakes up choking. She needs masks and all supplies since insurance changes. She goes to bed at 8pm and wakes up at 4am, does not have any bathroom breaks. She denies morning headaches, she has bruxism, and clenches her jaws. 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 She wears a wrist brace at night on both hands, L is more painful than R. Her memory is poor she is forgetful, will forget tasks, and has difficulty with word finding. She has left the stove on and has to remember why she entered a room. [facility] Medical History Sleep apnea treated with continuous positive airway pressure (CPAP) BMI 37.0-37.9, adult Non-celiac gluten sensitivity IBS (irritable bowel syndrome) History of fatty infiltration of liver Abnormal large bowel motility Lumbar disc herniation Fatty liver Obesity GERD (gastroesophageal reflux disease) Asthma Hypothyroidism Graves disease Surgical History Hx of section Hx of cholecystectomy Family History Other Breast cancer Colon cancer Diabetes Hypercholesteremia Hypertension Social History Housing: House Alcohol intake: never Patient Tobacco Use Status: Former Tobacco user e-Cigarette/Vaping Use: Never Used service: No Current occupational status: employed Current occupational exposures/hazards: Yes Cognitive needs: No Hearing needs: No Physical Exam Vital Signs: Last Vital Signs Pulse 81 11/28/24 14:33 BP 104/72 11/28/24 14:33 Pulse Ox 97 11/28/24 14:33 Oxygen Delivery Method Room Air 11/28/24 14:33 BMI result Body Mass Index 35.0 Const General: cooperative, comfortable and no acute distress Nutritional Appearance: average body habitus and overweight Orientation/consciousness: patient oriented x3 HEENT Face and sinus: Yes face symmetric Teeth and gingiva: other (mallampti score is 4) Eyes Pupils: Equal, round and reactive pupils present Neck Neck: Yes full ROM Resp Effort & Inspection: normal respiratory effort and able to speak in complete sentences Neuro General: patient oriented x3 and moves all extremities Cranial nerves: Yes Facial sensation intact/muscles of mastication intact, Yes Equal, round and reactive pupils present, Yes Normal accommodation reflex present, Yes Normal facial strength present, Yes Midline tongue present, Yes Ability to bilaterally rotate head present and Yes Ability to bilaterally elevate shoulders present Cognition (Neuro): normal cognition Gait exam (Neuro): Normal gait present Motor exam (neuro): 5/5 motor strength present throughout and Normal motor muscle tone present throughout Results Reviewed Results Reviewed: HST 2018 c/w AHI of 5 and oxygen nadirs to <90% for 2 min. She has mild rao, though followed by ENT and surgical procedure. She never started apap, will evaluate for RAO. Assessment & Plan Assessment & Plan (1) Excessive daytime sleepiness: Code(s): G47.19 - Other hypersomnia Category: Medical (2) Anemia: Code(s): D64.9 - Anemia, unspecified Category: Medical Qualifiers: Anemia type: iron deficiency Iron deficiency anemia type: other iron deficiency Qualified Code(s): D50.8 - Other iron deficiency anemias (3) Grief counseling: Code(s): Z71.89 - Other specified counseling Category: Medical (4) Carpal tunnel syndrome: Code(s): G56.00 - Carpal tunnel syndrome, unspecified upper limb Category: Medical Qualifiers: Laterality: bilateral Qualified Code(s): G56.03 - Carpal tunnel syndrome, bilateral upper limbs Plan HST r/o RAO Lab r/o deficiencies Cognitive Behavior Therapy for grief counseling mom 61 year old Breast Cancer recently passed : [facility] - referral is placed. CTS R parestehesias > L Ethel and phil wrist brace, rx printed. F/U in 3 months Orders: Orders RT home sleep study Today G47.19 - Other hypersomnia IRON PROFILE Today D64.9 - Anemia, unspecified, G47.19 - Other hypersomnia, G47.9 - Sleep disorder, unspecified, R53.83 - Other fatigue Homocysteine Today D64.9 - Anemia, unspecified, G47.19 - Other hypersomnia, G47.9 - Sleep disorder, unspecified, R53.83 - Other fatigue Methylmalonic Acid Today D64.9 - Anemia, unspecified, G47.19 - Other hypersomnia, G47.9 - Sleep disorder, unspecified, R53.83 - Other fatigue Magnesium Today D64.9 - Anemia, unspecified, G47.19 - Other hypersomnia Ferritin Today D64.9 - Anemia, unspecified, G47.19 - Other hypersomnia Vitamin D 25-OH Total Today D64.9 - Anemia, unspecified, G47.19 - Other hypersomnia Vitamin B12 and Folate Today D64.9 - Anemia, unspecified, G47.19 - Other hypersomnia TSH reflex Free T4 Today D64.9 - Anemia, unspecified, G47.19 - Other hypersomnia Hemoglobin A1c Today D64.9 - Anemia, unspecified, G47.19 - Other hypersomnia Referrals Psychology Referral Z71.89 - Other specified counseling Medications: New [wrist brace] As directed, bilateral wrist braces, medium strenght to wear during night and day prn pain. 2 ea 0RF carple tunnel syndrome G56.00 - Carpal tunnel syndrome, unspecified upper limb Patient Instructions: Sleep Hygiene provided: set a scheduled bedtime and wake time to help regulate the circadian rhythm and balance the release of pituitary hormones. Sleep in a dark room, temperatures below 68 degrees, and no devices n bed. Limit caffeinated products 6 hours prior to bed, and limit fluids 2-4 hours prior to bed. Gentle night yoga, diffusing essential oils, and playing soft music can be relaxing. Please complete the following fasting labs to rule out deficiencies. CBC/CMP/ B12/ Vit D/ TSH/ Homocysteine and MMA/ Ferritin. Coding Level of Care Code New Pt Level 4 (13334) Diagnoses Excessive daytime sleepiness G47.19 Other iron deficiency anemia D50.8 Anemia type: iron deficiency Iron deficiency anemia type: other iron deficiency Grief counseling Z71.89 Bilateral carpal tunnel syndrome G56.03 Laterality: bilateral Sleep Questionnaire Difficulty falling asleep: Yes Difficulty staying asleep?: No Number of arousals: 1-3 Snoring: Yes Witnessed apneas: Yes Gasping arousals: Yes Nocturia: No GERD: No Vivid dreams: No Acting out dreams: No Abnormal behavior in sleep: Yes (sleep talking) Abnormal movements in sleep: No Morning headaches: No Excessive daytime sleepiness: Yes Daytime naps: Yes Restless legs: Yes Hallucinations: No Sleep paralysis: No Drop attacks: No Sleep Study: Yes (2018) CPAP: Yes
[2024-11-28 14:33] VITALS: BP 104/72; PULSE 81; O2SAT 97; BMI 35.0
--- OUTSIDE RECORDS SUMMARY | 2024-11-28 16:49 | XMS_ITS | Clinical Summary ---
Author Organization [facility] Address [address] [place] [address] Care Team Providers Care Offal Trimmer Name Role Phone Unavailable Primary Care Provider [...] topic Shamir Dominguez Personal/Family Self 1985 [address] [place] [address]
--- OUTSIDE RECORDS SUMMARY | 2024-11-28 16:49 | XMS_ITS | Clinical Summary ---
Author Organization [facility] Address [address] [place] [address] Phone Care Team Providers Care Workplace Relations Adviser Name Role Phone Physician, No Pcp Primary [...] nebulizer solutionIndication s:Severe persistent asthma without complication ([facility]/HCC V28) Take 3 mL (2.5 mg total) [...] Anxiety and depression 09/03/2021 Severe persistent asthma ([facility] V28) 2 Overview (11/27/2023): Last [...] 2:45 PM EDT Office Visit Pulmonology - [place] [address] [facility] [address] [place] [address] Hilda Lindsey NP [address] [place] [phone] Health Maintenance Due Date Last Done [...] Result * Hepatitis C Screening (07/03/2015) [facility]ologist [facility] Hepatitis C Screening abstracted Historical Provider HEALTH MAINTENANCE Final Result from Last 3 Months or Most Recently Relevant to Health Maintenance Insurance [employer] [place] Care Teams Workplace Relations Adviser Relationship Specialty Start Date End Date Physician, No Pcp PCP - General 09/19/24
== END 2024-11-28 15:17 | disposition home or self-care (01) ==
LOC: HO.HSMS 14:21
PROVIDERS: Visit Provider Physician Assistant Medical
DX: G47.19 Other hypersomnia (principal); D50.8 Other iron deficiency anemias; Z71.89 Other specified counseling; G56.03 Carpal tunnel syndrome, bilateral upper limbs
CPT/HCPCS: 99204

== ENCOUNTER 2024-11-29 06:46 | Outpatient (REF) | payer OTHER, SELFPAY ==
--- OUTSIDE RECORDS SUMMARY | 2024-11-29 06:50 | XMS_ITS | Clinical Summary ---
Author Organization [facility] Address [address] [place] [address] Care Team Providers Care Desk Officer Name Role Phone Unavailable Primary Care Provider [...] topic Shamir Dominguez Personal/Family Self [address] [place] [address]
--- OUTSIDE RECORDS SUMMARY | 2024-11-29 06:50 | XMS_ITS | Clinical Summary ---
Author Organization [facility] Address [address] [place] [address] Phone Care Team Providers Care Banana Ripening Room Supervisor Name Role Phone Physician, No Pcp Primary [...] solutionIndication s:Severe persistent asthma without complication ([facility]/HCC V28) Take 3 mL (2.5 mg total) [...] and depression 09/03/2021 Severe persistent asthma ([facility] V28) 2 Overview (11/27/2023): Last Assessment & [...] PROCEDURE: HISTORICAL TUBAL LIGATION COLONOSCOPY 03/04/2012 PROCEDURE: MA COLONOSCOPY FLX DX W/COLLJ SPEC WHEN PFRMD; COMMENT: normal COLONOSCOPY 12/02/2017 PROCEDURE: HISTORICAL COLONOSCOPY; COMMENT: rectal polyp TA polyp ESOPHAGOGASTRODUODENOSCOPY 12/27/2019 PROCEDURE: MA EGD TRANSORAL BIOPSY SINGLE/MULTIPLE; COMMENT: Dr. Donato - normal-appearing esophagus and duodenum. Stomach had evidence of gastric mucosal congestion. Duodenal biopsy was negative for celiac disease. Gastric biopsy was positive for mild chronic gastritis but negative for H. pylori. COLONOSCOPY 03/27/2021 PROCEDURE: HISTORICAL COLONOSCOPY; COMMENT: tiny polyp ESOPHAGOGASTRODUODENOSCOPY 03/27/2021 PROCEDURE: MA EGD TRANSORAL BIOPSY SINGLE/MULTIPLE; COMMENT: normal, random stomach biopsy negative. OTHER SURGICAL HISTORY 12/20/2021 PROCEDURE: HISTORICAL TOTAL HYSTERECTOMY W/O BSO; COMMENT: RAH, BS CHOLECYSTECTOMY PROCEDURE: MA LAPAROSCOPY SURG CHOLECYSTECTOMY Medical History Medical History [...] 2:45 PM EDT Office Visit Pulmonology - [place] [address] [facility] [address] [place] [address] Hilda Lindsey NP [address] [place] [phone] Health Maintenance Due Date Last Done [...] Result * Hepatitis C Screening (07/03/2015) Pathologist [facility] Hepatitis C Screening abstracted Historical Provider HEALTH MAINTENANCE Final Result from Last 3 Months or Most Recently Relevant to Health Maintenance Insurance [employer] [place] Care Teams Banana Ripening Room Supervisor Relationship Specialty Start Date End Date Physician, No Pcp PCP - General 09/19/24
[2024-11-29 08:28] LABS: Iron 78 mcg/dL (30-160); Magnesium 2.0 mg/dL (1.6-2.6); Percent Iron Saturation 27 % (15-50); Total Iron Binding Capacity 291 mcg/dL (228-428); Unsaturated Iron Binding 213 ug/dL
[2024-11-29 08:45] LABS: Ferritin 44 ng/mL (10-250)
[2024-11-29 08:58] LABS: Folate 11.9 ng/mL (> or = 4.0); Vitamin B12 313 pg/mL (200-900)
== END 2024-11-29 06:47 | disposition home or self-care (01) ==
LOC: HO.LAB 06:46
PROVIDERS: Visit Provider Physician Assistant Medical
DX: J45.50 Severe persistent asthma, uncomplicated (principal); G47.33 Obstructive sleep apnea (adult) (pediatric); J33.9 Nasal polyp, unspecified; L30.9 Dermatitis, unspecified; R53.83 Other fatigue; D64.9 Anemia, unspecified; Z87.891 Personal history of nicotine dependence; Z13.1 Encounter for screening for diabetes mellitus
CPT/HCPCS: 36415; 82306; 82607; 82728; 82746; 83036; 83090; 83540; 83735; 83921; 84443

== ENCOUNTER 2024-11-29 14:50 | Outpatient (AMB) | payer OTHER, SELFPAY ==
[2024-11-29 14:53] VITALS: BP 100/60; PULSE 85; O2SAT 97; BMI 34.5
--- NOTE | 2024-11-29 14:53 | A.OFFVIS_ITS ---
Vital Signs 11/29/24 14:53 Height 4 ft 11 in Weight 170 lb 13.732 oz BMI 34.5 BP 100/60 Blood Pressure Location Lt brachial Position Sitting Pulse 85 Pulse Source Pulse Oximeter Pulse Oximetry (%) 97 Intake Visit Reasons: Asthma/ Sleep Apnea Data Collection Interviewer Required: No Accompanied by: Self / Same As Patient Allergies egg (eggs) Allergy (Intermediate, Verified 11/29/24 14:57) Rash gluten Allergy (Intermediate, Verified 11/29/24 14:57) Hives From SOLU-MEDROL Allergy (Unknown, Uncoded 11/08/24 14:15) NAUSEA AND VOMITTING HPI Comments Details: The patient is here for pulmonary evaluation. The patient is a 39 year woman with known history of lifelong severe persistent asthma, nasal polyps s/p heriberto ypectomy, eczema. She has seen multiple pulmonologists throughout her life. Recently she has been on multiple inhalers, including Breo and Spiriva. She also had been on biologics including Nucala. The Nucala was very effective for her. She felt like her breathing is significantly better not requiring any prednisone. She has been off the Nucala now for about 10 months. She has been noticing increasing shortness of breath chest tightness. She has been using her inhaler on a regular basis. She recently did see an generator worker. She has significant allergic reaction at the time of the allergy skin testing. She has been concerned about starting allergy shots because she does want to have another reaction like that. But now she does have diminished breath sounds with a prolonged expiratory phase. She does have persistent uncontrolled asthma. Therefore, will go ahead and optimize her respiratory regimen by switching over to Trelegy and will go ahead and request blood work to restart her on biologics. Although she was on Nucala before I do believe that Dupixent will be a better option specially with a history of nasal polyposis. [facility] Medical History (Updated 11/29/24 @ 22:02 by Nathna Pagan MD) Eczema Nasal polyps Sleep apnea treated with continuous positive airway pressure (CPAP) BMI 37.0-37.9, adult Non-celiac gluten sensitivity IBS (irritable bowel syndrome) History of fatty infiltration of liver Abnormal large bowel motility Lumbar disc herniation Fatty liver Obesity GERD (gastroesophageal reflux disease) Asthma Hypothyroidism Graves disease Surgical History Hx of section Hx of cholecystectomy Family History Other Breast cancer Colon cancer Diabetes Hypercholesteremia Hypertension Social History Housing: House Alcohol intake: never Patient Tobacco Use Status: Former Tobacco user e-Cigarette/Vaping Use: Never Used service: No Current occupational status: employed Current occupational exposures/hazards: Yes Cognitive needs: No Hearing needs: No Review of Systems Const Denies body aches, Denies chills, Reports fatigue, Denies fever(s), Denies headache(s), Reports lethargy and Denies poor appetite Eyes Reports no additional complaints ENT Denies dysphagia, Denies dizziness, Denies headache(s) and Denies odynophagia Card Denies chest pain, Denies syncope, Denies edema, Denies irregular heart rhythm, Denies lightheadedness and Denies dyspnea Resp Denies cough and Denies dyspnea GI Denies abdominal pain, Reports bloating (On and off), Reports constipation (On and off), Denies dysphagia, Reports dyspepsia (On and off), Reports heartburn (Intermittent), Denies diarrhea, Denies nausea, Denies odynophagia and Denies vomiting Musc Reports no additional complaints and Denies abnormal gait Skin/Breast Reports system reviewed and no additional complaints, except as documented Neuro Denies abnormal gait, Denies dizziness, Denies syncope and Denies headache(s) Endo Reports fatigue Physical Exam Vital Signs: Last Vital Signs Pulse 85 11/29/24 14:53 BP 100/60 11/29/24 14:53 Pulse Ox 97 11/29/24 14:53 BMI result Body Mass Index 34.5 Const General: comfortable and no acute distress Orientation/consciousness: patient oriented x3 HEENT Head: Yes normocephalic Face and sinus: Yes face symmetric Teeth and gingiva: other (mallampti score is 4) Neck Neck: Yes full ROM Chest Chest palpation & inspection: normal inspection of the chest Resp Effort & Inspection: normal respiratory effort and able to speak in complete sentences Auscultation: diminished lung sounds Cardio Heart sounds: S1 normal heart sound present and S2 normal heart sound present GI Palpation (GI): Soft to palpation Neuro General: patient oriented x3 and moves all extremities Extrem General: Yes no clubbing, cyanosis or edema Assessment & Plan Assessment & Plan (1) Asthma: Code(s): J45.909 - Unspecified asthma, uncomplicated Category: Medical Qualifiers: Asthma complication type: unspecified Asthma persistence: persistent Asthma severity: severe Qualified Code(s): J45.50 - Severe persistent asthma, uncomplicated (2) RAO (obstructive sleep apnea): Code(s): G47.33 - Obstructive sleep apnea (adult) (pediatric) Category: Medical (3) Nasal polyps: Code(s): J33.9 - Nasal polyp, unspecified Category: Medical (4) Eczema: Code(s): L30.9 - Dermatitis, unspecified Category: Medical Plan Stop Breo/Spiriva Start Trelegy LISA as neeeded Continue H1B Continue Singulair Bloodwork, MAy benefir from restarting Biologic therapies. Likely Dupixent. Awaiting bloodwork continue PAP therapy PFTs F/U 2-3 months Orders: Orders Complete Blood Count Auto Diff Today J45.50 - Severe persistent asthma, uncomplicated Erythrocyte Sedimentation Rate Today J45.50 - Severe persistent asthma, uncomplicated Immunoglobulin E Today J45.50 - Severe persistent asthma, uncomplicated PFT pulmonary function test Today J45.50 - Severe persistent asthma, uncomplicated Medications: New [id number] 200-62.5-25 mcg (Trelegy Ellipta) 1 inh inhalation DAILY 60 ea 12RF 30 days Coding Level of Care Code New Pt Level 4 (25888) Diagnoses Severe persistent asthma, unspecified whether complicated J45.50 Asthma complication type: unspecified Asthma persistence: persistent Asthma severity: severe RAO (obstructive sleep apnea) G47.33 Nasal polyps J33.9 Eczema L30.9 Time Spent (min) 40
--- OUTSIDE RECORDS SUMMARY | 2024-11-29 18:07 | XMS_ITS | Clinical Summary ---
Author Organization [facility] Address [address] [place] [address] Phone Care Team Providers Care Drop Wirer Name Role Phone Physician, No Pcp Primary [...] nebulizer solutionIndication s:Severe persistent asthma without complication ([facility]/HCC V28) Take 3 mL (2.5 mg total) [...] Anxiety and depression 09/03/2021 Severe persistent asthma ([facility] V28) 2 Overview (11/27/2023): [...] PROCEDURE: HISTORICAL TUBAL LIGATION COLONOSCOPY 03/04/2012 PROCEDURE: IA COLONOSCOPY FLX DX W/COLLJ SPEC WHEN PFRMD; COMMENT: normal COLONOSCOPY 12/02/2017 PROCEDURE: HISTORICAL COLONOSCOPY; COMMENT: rectal polyp TA polyp ESOPHAGOGASTRODUODENOSCOPY 12/27/2019 PROCEDURE: IA EGD TRANSORAL BIOPSY SINGLE/MULTIPLE; COMMENT: Dr. Donato - normal-appearing esophagus and duodenum. Stomach had evidence of gastric mucosal congestion. Duodenal biopsy was negative for celiac disease. Gastric biopsy was positive for mild chronic gastritis but negative for H. pylori. COLONOSCOPY 03/27/2021 PROCEDURE: HISTORICAL COLONOSCOPY; COMMENT: tiny polyp ESOPHAGOGASTRODUODENOSCOPY 03/27/2021 PROCEDURE: IA EGD TRANSORAL BIOPSY SINGLE/MULTIPLE; COMMENT: normal, random stomach biopsy negative. OTHER SURGICAL HISTORY 12/20/2021 PROCEDURE: HISTORICAL TOTAL HYSTERECTOMY W/O BSO; COMMENT: RAH, BS CHOLECYSTECTOMY PROCEDURE: IA LAPAROSCOPY SURG CHOLECYSTECTOMY Medical History Medical History [...] 2:45 PM EDT Office Visit Pulmonology - [place] [address] [facility] [address] [place] [address] Hilda Lindsey NP [address] [place] [phone] Health Maintenance Due Date Last Done [...] Recommendation: Routine annual screening mammography is recommended Yamial Fair NP IMG BI PROCEDURES Rachele l Result * HIV Screening (12/09/2017) HIV Screening abstracted Historical Provider HEALTH MAINTENANCE Final Result * Hepatitis C Screening (07/03/2015) Pathologist [facility] Hepatitis C Screening abstracted Historical Provider HEALTH MAINTENANCE Final Result from Last 3 Months or Most Recently Relevant to Health Maintenance Insurance [employer] [place] Care Teams Drop Wirer Relationship Specialty Start Date End Date Physician, No Pcp PCP - General 09/19/24
--- OUTSIDE RECORDS SUMMARY | 2024-11-29 18:07 | XMS_ITS | Clinical Summary ---
[facility] Organization [facility] Address [address] [place] [address] Care Team Providers Care Collection Administrator Name Role Phone Unavailable Primary Care Provider [...] topic Shamir Dominguez Personal/Family Self 1985 [address] [place] [place] [address]
== END 2024-11-29 15:32 | disposition home or self-care (01) ==
LOC: HO.HPS 14:51
PROVIDERS: Visit Provider Hospitalist
DX: J45.50 Severe persistent asthma, uncomplicated (principal); G47.33 Obstructive sleep apnea (adult) (pediatric); J33.9 Nasal polyp, unspecified; L30.9 Dermatitis, unspecified
CPT/HCPCS: 99204

== ENCOUNTER 2024-11-30 07:03 | Outpatient (REF) | payer OTHER, SELFPAY ==
--- OUTSIDE RECORDS SUMMARY | 2024-11-30 07:05 | XMS_ITS | Clinical Summary ---
Author Organization [facility] Address [address] [place] [address] Care Team Providers Care Medical Record Specialist Name Role Phone Unavailable Primary Care Provider [...] topic Shamir Dominguez Personal/Family Self 1985 [address] [facility] [place] [address]
--- OUTSIDE RECORDS SUMMARY | 2024-11-30 07:05 | XMS_ITS | Clinical Summary ---
Author Organization [facility] Address [address] [place] [address] Phone Care Team Providers Care Cloth Mercerizer Back Tender Name Role Phone Physician, No Pcp Primary [...] nebulizer solutionIndication s:Severe persistent asthma without complication ([facility]/HCC V28) Take 3 mL (2.5 mg total) [...] Anxiety and depression 09/03/2021 Severe persistent asthma ([facility] V28) 2 Overview (11/27/2023): [...] PROCEDURE: HISTORICAL TUBAL LIGATION COLONOSCOPY 03/04/2012 PROCEDURE: AL COLONOSCOPY FLX DX W/COLLJ SPEC WHEN PFRMD; COMMENT: normal COLONOSCOPY 12/02/2017 PROCEDURE: HISTORICAL COLONOSCOPY; COMMENT: rectal polyp TA polyp ESOPHAGOGASTRODUODENOSCOPY 12/27/2019 PROCEDURE: AL EGD TRANSORAL BIOPSY SINGLE/MULTIPLE; COMMENT: Dr. Donato - normal-appearing esophagus and duodenum. Stomach had evidence of gastric mucosal congestion. Duodenal biopsy was negative for celiac disease. Gastric biopsy was positive for mild chronic gastritis but negative for H. pylori. COLONOSCOPY 03/27/2021 PROCEDURE: HISTORICAL COLONOSCOPY; COMMENT: tiny polyp ESOPHAGOGASTRODUODENOSCOPY 03/27/2021 PROCEDURE: AL EGD TRANSORAL BIOPSY SINGLE/MULTIPLE; COMMENT: normal, random stomach biopsy negative. OTHER SURGICAL HISTORY 12/20/2021 PROCEDURE: HISTORICAL TOTAL HYSTERECTOMY W/O BSO; COMMENT: RAH, BS CHOLECYSTECTOMY PROCEDURE: AL LAPAROSCOPY SURG CHOLECYSTECTOMY Medical History Medical History [...] 2:45 PM EDT Office Visit Pulmonology - [place] [address] [facility] [address] [place] [address] Hilda Lindsey NP [address] [place] [phone] Health Maintenance Due Date Last Done [...] Recommendation: Routine annual screening mammography is recommended Yaimla Fair NP IMG BI PROCEDURES Rachele l Result * HIV Screening (12/09/2017) HIV Screening abstracted Historical Provider HEALTH MAINTENANCE Final Result * Hepatitis C Screening (07/03/2015) Pathologist [facility] Hepatitis C Screening abstracted Historical Provider HEALTH MAINTENANCE Final Result from Last 3 Months or Most Recently Relevant to Health Maintenance Insurance [employer] [place] Care Teams Cloth Mercerizer Back Tender Relationship Specialty Start Date End Date Physician, No Pcp PCP - General 09/19/24
[2024-11-30 07:10] LABS: MANUAL DIFF FLAG NO
[2024-11-30 07:47] LABS: Hematocrit 41.5 % (37.0-47.0); Hemoglobin 13.4 g/dl (12.0-16.0); Imm Gran Abs Auto 0.04 X10*3/uL (0.00-0.03); Imm Gran Pct Auto 0.5 % (0.0-0.4); Lymphocytes Absolute Auto 1.9 X10*3/uL (1.2-4.9); Mean Corpuscular HGB Conc 32.3 g/dl (31.0-35.0); Mean Corpuscular Hemoglobin 27.8 pg (27.0-33.0); Mean Corpuscular Volume 86.1 fL (80.0-98.0); NRBC Abs Auto 0.000 X10*3/uL (0.0-0.012); NRBC Pct Auto 0.0 /100WBC (0.0-0.2); Platelet Count 285 X10*3/uL (160-400); Red Blood Count 4.82 X10*6/uL (4.20-5.50); White Blood Count 8.0 X10*3/uL (4.8-10.8)
== END 2024-11-30 07:04 | disposition home or self-care (01) ==
LOC: HO.LAB 07:03
PROVIDERS: Visit Provider Hospitalist
DX: J45.50 Severe persistent asthma, uncomplicated (principal)
CPT/HCPCS: 36415; 82785; 85025; 85652

== ENCOUNTER 2024-12-09 13:04 | Outpatient (REF) | payer OTHER, SELFPAY ==
[2024-12-09 16:23] LABS: Alanine Aminotransferase 26 U/L (0-31); Albumin Level 4.9 g/dL (3.5-5.0); Aspartate Amino Transferase 21 U/L (5-31); Cholesterol 153 mg/dL (<200); HDL Cholesterol 40 mg/dL (>40); Total Protein 8.1 g/dL (6.5-8.0); Triglycerides 70 mg/dL (<150)
[2024-12-09 18:07] LABS: Alkaline Phosphatase 60 U/L (39-117)
== END 2024-12-09 13:05 | disposition home or self-care (01) ==
LOC: HO.LAB 13:04
PROVIDERS: Visit Provider Nurse Practitioner Family
DX: K58.1 Irritable bowel syndrome with constipation (principal); K90.41 Non-celiac gluten sensitivity; K76.0 Fatty (change of) liver, not elsewhere classified; R19.5 Other fecal abnormalities; Z80.0 Family history of malignant neoplasm of digestive organs
CPT/HCPCS: 36415; 80061; 80076; 86140

== ENCOUNTER 2024-12-09 13:04 | Outpatient (AMB) | payer OTHER, SELFPAY ==
[2024-12-09 13:15] VITALS: BP 126/65; PULSE 74; BMI 33.4
--- NOTE | 2024-12-09 13:15 | A.OFFVIS_ITS ---
Vital Signs 12/09/24 13:15 Height 4 ft 11 in Weight 165 lb 5.547 oz BMI 33.4 BP 126/65 Blood Pressure Location Lt brachial Position Sitting Pulse 74 Intake Visit Reasons: US/Lab results Intake Note: Lise presents in the office as a follow up for US and lab results CC: states she is just here for reuslts. No concerns. Resaw Tailer Required: No Allergies egg (eggs) Allergy (Intermediate, Verified 12/09/24 13:20) Rash gluten Allergy (Intermediate, Verified 12/09/24 13:20) Hives From SOLU-MEDROL Allergy (Unknown, Uncoded 12/09/24 13:20) NAUSEA AND VOMITTING HPI HPI US/Lab results: Details: Patient is a 39-year-old female with PMH of anxiety and depression, obesity, sleep apnea, fibromyalgia and asthma. F/u for ongoing mgmt of constipation, epigastric pain, and hepatic steatosis. Pt reports sustained wt loss (~18 lbs since last appt in August) using a 16:8 intermittent fasting schedule; significant improvement in prediabetes per prior labs. Pt notes increased difficulty with fasting when not at work but remains adherent overall and reports improved QOL. Constipation remains unchanged, characterized by alternating hard stools and occasional diarrhea. Intermittently uses Miralax for constipation PRN, tries to limit frequency. Still experiences epigastric pain and rash after consuming g luten and/or eggs, though prior celiac serologies and allergy testing negative within past year. No episodes of GI bleeding, heartburn, or significant new upper GI sx. No interim hospitalizations, UC/ED visits, or acute flares. FHx significant for father with colon ca at early age. Scheduled with FAREBOX REPAIRER for hormone status/menopause-related concerns (s/p hysterectomy, ovaries retained), as GI sx worsened after hospital admitting clerk surgery. [facility] Medical History (Updated 12/09/24 @ 13:42 by Esmer Esqueda CNP) Change in stool Eczema Nasal polyps Sleep apnea treated with continuous positive airway pressure (CPAP) BMI 37.0-37.9, adult Non-celiac gluten sensitivity IBS (irritable bowel syndrome) History of fatty infiltration of liver Abnormal large bowel motility Lumbar disc herniation Fatty liver Obesity GERD (gastroesophageal reflux disease) Asthma Hypothyroidism Graves disease Surgical History Hx of section Hx of cholecystectomy Family History (Updated 12/10/24 @ 09:20 by Esmer Esqueda CNP) Father Colon cancer Other Breast cancer Diabetes Hypercholesteremia Hypertension Social History Housing: House Alcohol intake: never Patient Tobacco Use Status: Former Tobacco user e-Cigarette/Vaping Use: Never Used service: No Current occupational status: employed Current occupational exposures/hazards: Yes Cognitive needs: No Hearing needs: No Review of Systems Const Reports as per HPI ENT Reports as per HPI Card Reports as per HPI Resp Reports as per HPI GI Reports as per HPI Reports as per HPI Physical Exam Vital Signs: Last Vital Signs Pulse 74 12/09/24 13:15 BP 126/65 12/09/24 13:15 BMI result Body Mass Index 33.4 Const General: healthy appearing, no acute distress and well developed Nutritional Appearance: average body habitus Orientation/consciousness: patient oriented x3 HEENT Head: Yes normal to inspection, Yes normocephalic and Yes atraumatic Face and sinus: Yes normal facial exam Eyes General: appearance normal, both eyes and all related structures Neck Neck: Yes normal visual inspection Resp Effort & Inspection: normal respiratory effort, able to speak in complete sentences, no tracheal deviation and symmetric chest movement Cardio Jugular venous distension: no JVD GI Inspection: Yes normal to inspection and No distended Palpation (GI): Soft to palpation, not firm, nontender and No hepatosplenomegaly present Auscultation: normal bowel sounds Neuro General: patient oriented x3 Gait exam (Neuro): Normal gait present Psych Appearance: grossly normal Mental Status: mental status grossly normal Speech and movement: Normal speech and movement present Affect: normal affect Attitude: cooperative Thought process: Normal thought process present Thought content: Normal thought content present Insight: Good insight present (Psych) Judgement: Good judgement present (Psych) Results Reviewed Results Reviewed: Date of Service: 11/25/24 Procedure(s): US abdomen complete Accession Number(s): [id number] cc: Esmer Esqueda CNP; Rui Burns~ Reason for Exam: - Personal history of other diseases of the digestive system CLINICAL HISTORY: Z - Personal history of other diseases of the digestive system --- Additional Notes or Special Instructions: evaluate fatty liver US abdomen complete Comparison: None provided Findings: The visualized pancreas is normal. The aorta and inferior vena cava are normal caliber. The appearance of the liver suggests fatty infiltration. Right lobe length is 16.8 cm. There is no intrahepatic bile duct dilatation. The common duct is 3.0 mm in diameter. The gallbladder is normal. There is no sonographic Cervantes sign. The main portal vein is antegrade. The right kidney is 10.9 cm in length. The left kidney is 11 cm in length. There are bilateral renal Bosniak 1 cysts, largest on the right measuring 4.6 x 4.3 x 3.9 cm. The spleen is 8.4 cm in length. No ascites. IMPRESSION: 1. Hepatic steatosis. Assessment & Plan Assessment & Plan (1) IBS (irritable bowel syndrome): Code(s): K58.9 - Irritable bowel syndrome, unspecified Category: Medical Qualifiers: Irritable bowel syndrome type: with constipation Qualified Code(s): K58.1 - Irritable bowel syndrome with constipation Plan: Unchanged; alternating constipation/diarrhea, intermittent need for PRN Miralax. Persistent bowel irregularity warrants additional evaluation due to FHx of colon ca and worsening after surgical menopause. Additional Testing: -Colonoscopy and EGD ordered for further evaluation -Fecal calprotectin for IBD screening Medications: Continue Miralax PRN; Rx for colonoscopy prep reviewed, resend laxative script/PREP instructions. Lifestyle Recommendations: Encourage adequate hydration, monitor fiber intake, review bowel diary to clarify triggers, provide educational prep packet. Referrals/Coordination: GI procedures scheduled; F/U with F[facility]BOX REPAIRER for hormone status. F/U Plan: Review results post-procedure and lab review, PRN visit prior to p rocedures if questions arise. (2) Non-celiac gluten sensitivity: Code(s): K90.41 - Non-celiac gluten sensitivity Category: Medical Plan: Ongoing intermittent GI sx and facial rash with gluten/egg ingestion. Avoidance leads to sx resolution. Reassurance provided due to negative celiac and previous formal allergy testing. Additional Testing: None unless increased sx or concern for systemic allergic response. Medications: None specific. Lifestyle Recommendations: Continue gluten/egg avoidance as tolerated, observe sx with reintroduction, use resources (e.g., AI tools) for dietary queries. Referrals/Coordination: None requested at this time. F/U Plan: Reassess dietary tolerances and flares at next visit. (3) Fatty liver: Code(s): K76.0 - Fatty (change of) liver, not elsewhere classified Category: Medical Plan: Stable; fatty liver reconfirmed, no structural complications. Wt loss substant ial; metabolic markers previously improved. Rationale: Wt reduction is effective (pt down ~18 lbs), previous labs show trend towards normoglycemia, maintain momentum. Additional Testing: Repeat fasting LFTs, lipid panel ordered to monitor hepatic/metabolic response. Medications: Continue statin (atorvastatin) as prescribed; monitor for myalgias, hepatotoxicity. Lifestyle Recommendations: Maintain intermittent fasting (16:8 window), reinforce balanced, low-fat diet, minimize processed/fried foods per NAFLD guidelines. Provide podcast/YT educational recommendations as discussed. Referrals/Coordination: None at this time. F/U Plan: Serial LFTs/lipids q6-12mo, annual hepatic US if labs stable, earlier PRN if LFTs rise. Plan Follow-up after endoscopy or sooner as needed Time: I spent a total of 31 minutes on the date of encounter which includes: Preparing to see the patient (reviewed previous documentation, test results and medical history) Performing a medically appropriate exam and/or evaluation Ordering medications, tests, and procedures Documenting clinical information in the health record Orders: Orders Liver Panel 12/09/24 K76.0 - Fatty (change of) liver, not elsewhere classified Lipid Panel 12/09/24 K76.0 - Fatty (change of) liver, not elsewhere classified C Reactive Protein 12/09/24 R19.5 - Other fecal abnormalities Calprotectin, Fecal 12/09/24 R19.5 - Other fecal abnormalities Referrals GI Procedure Notification K21.9 - Gastro-esophageal reflux disease without esophagitis, K90.41 - Non-celiac gluten sensitivity, R19.5 - Other fecal abnormalities, Z80.0 - Family history of malignant neoplasm of digestive organs Coding Level of Care Code Established Pt Est Pt Level 3 (17243) Patient Type Established Diagnoses Irritable bowel syndrome with constipation K58.1 Irritable bowel syndrome type: with constipation Non-celiac gluten sensitivity K90.41 Fatty liver K76.0
--- OUTSIDE RECORDS SUMMARY | 2024-12-09 15:42 | XMS_ITS | Clinical Summary ---
Author Organization [facility] Address [address] [place] [address] Phone Care Team Providers Care Strip Machine Tender Name Role Phone Physician, No Pcp [...] nebulizer solutionIndication s:Severe persistent asthma without complication ([facility]/HCC V28) Take 3 mL (2.5 [...] Anxiety and depression 09/03/2021 Severe persistent asthma ([facility] V28) 2 Overview (11/27/2023): Last [...] PROCEDURE: HISTORICAL TUBAL LIGATION COLONOSCOPY 03/04/2012 PROCEDURE: WY COLONOSCOPY FLX DX W/COLLJ SPEC WHEN PFRMD; COMMENT: normal COLONOSCOPY 12/02/2017 PROCEDURE: HISTORICAL COLONOSCOPY; COMMENT: rectal polyp TA polyp ESOPHAGOGASTRODUODENOSCOPY 12/27/2019 PROCEDURE: WY EGD TRANSORAL BIOPSY SINGLE/MULTIPLE; COMMENT: Dr. Donato - normal-appearing esophagus and duodenum. Stomach had evidence of gastric mucosal congestion. Duodenal biopsy was negative for celiac disease. Gastric biopsy was positive for mild chronic gastritis but negative for H. pylori. COLONOSCOPY 03/27/2021 PROCEDURE: HISTORICAL COLONOSCOPY; COMMENT: tiny polyp ESOPHAGOGASTRODUODENOSCOPY 03/27/2021 PROCEDURE: WY EGD TRANSORAL BIOPSY SINGLE/MULTIPLE; COMMENT: normal, random stomach biopsy negative. OTHER SURGICAL HISTORY 12/20/2021 PROCEDURE: HISTORICAL TOTAL HYSTERECTOMY W/O BSO; COMMENT: RAH, BS CHOLECYSTECTOMY PROCEDURE: WY LAPAROSCOPY SURG CHOLECYSTECTOMY Medical History Medical History [...] 04/26/2024 3:55 PM EST Plan of Treatment Health Maintenance Due Date [...] 19+ 3-dose series) 03/31/2024 03/03/2024 COVID-19 Vaccine ( season) 2024 01/29/2021, 06/15/2020, [...] us Historical Provider LAB BLOOD ORDERABLES Rachele white Result * DIAGNOSTIC MAMMOGRAPHY WITH CAD UNILATERAL [...] annual screening mammography is recommended Yamila Fair CODING TECH IMG BI PROCEDURES Rachele l Result * HIV Screening (12/09/2017) HIV Screening abstracted Result [facility] Historical Provider HEALTH MAINTENANCE Final Result * Hepatitis C Screening (07/03/2015) Hepatitis C Screening abstracted Historical Provider HEALTH MAINTENANCE Final Result from Last 3 Months or Most Recently Relevant to Health Maintenance Insurance [employer] [facility] Care Teams Strip Machine Tender Relationship Specialty Start Date End Date Physician, No Pcp PCP - General 09/19/24
--- OUTSIDE RECORDS SUMMARY | 2024-12-09 15:42 | XMS_ITS | Clinical Summary ---
Author Organization [facility] Address [address] [place] [address] Care Team Providers Care Health Unit Supervisor Name Role Phone Unavailable Primary Care Provider [...] topic Shamir Dominguez Personal/Family Self 1985 [address] [place] [address]
== END 2024-12-09 13:56 | disposition home or self-care (01) ==
LOC: HO.HGI 13:05
PROVIDERS: Visit Provider Nurse Practitioner Family
DX: K58.1 Irritable bowel syndrome with constipation (principal); K90.41 Non-celiac gluten sensitivity; K76.0 Fatty (change of) liver, not elsewhere classified
CPT/HCPCS: 99213

== ENCOUNTER 2024-12-11 07:50 | Outpatient (REF) | payer OTHER, SELFPAY ==
--- OUTSIDE RECORDS SUMMARY | 2024-12-12 07:52 | XMS_ITS | Clinical Summary ---
Author Organization [facility] Address [address] [place] [address] Phone Care Team Providers Care Algologist Name Role Phone Physician, No Pcp Primary [...] nebulizer solutionIndication s:Severe persistent asthma without complication ([facility]/HCC V28) Take 3 mL (2.5 mg total) [...] Anxiety and depression 09/03/2021 Severe persistent asthma ([facility] V28) 2 Overview (11/27/2023): Last [...] PROCEDURE: HISTORICAL TUBAL LIGATION COLONOSCOPY 03/04/2012 PROCEDURE: ME COLONOSCOPY FLX DX W/COLLJ SPEC WHEN PFRMD; COMMENT: normal COLONOSCOPY 12/02/2017 PROCEDURE: HISTORICAL COLONOSCOPY; COMMENT: rectal polyp TA polyp ESOPHAGOGASTRODUODENOSCOPY 12/27/2019 PROCEDURE: ME EGD TRANSORAL BIOPSY SINGLE/MULTIPLE; COMMENT: Dr. Donato - normal-appearing esophagus and duodenum. Stomach had evidence of gastric mucosal congestion. Duodenal biopsy was negative for celiac disease. Gastric biopsy was positive for mild chronic gastritis but negative for H. pylori. COLONOSCOPY 03/27/2021 PROCEDURE: HISTORICAL COLONOSCOPY; COMMENT: tiny polyp ESOPHAGOGASTRODUODENOSCOPY 03/27/2021 PROCEDURE: ME EGD TRANSORAL BIOPSY SINGLE/MULTIPLE; COMMENT: normal, random stomach biopsy negative. OTHER SURGICAL HISTORY 12/20/2021 PROCEDURE: HISTORICAL TOTAL HYSTERECTOMY W/O BSO; COMMENT: RAH, BS CHOLECYSTECTOMY PROCEDURE: ME LAPAROSCOPY SURG CHOLECYSTECTOMY Medical History Medical History [...] annual screening mammography is recommended Yamila Fair MOBILE LAB TECHNICIAN IMG BI PROCEDURES Rachele l Result * HIV Screening (12/09/2017) HIV Screening abstracted Result [facility] Historical Provider HEALTH MAINTENANCE Final Result * Hepatitis C Screening (07/03/2015) Hepatitis C Screening abstracted Historical Provider HEALTH MAINTENANCE Final Result from Last 3 Months or Most Recently Relevant to Health Maintenance Insurance [employer] [facility] Care Teams Algologist Relationship Specialty Start Date End Date Physician, No Pcp PCP - General 09/19/24
--- OUTSIDE RECORDS SUMMARY | 2024-12-12 07:52 | XMS_ITS | Clinical Summary ---
Author Organization [facility] Address [address] [place] [address] Care Team Providers Care Health Advocate Name Role Phone Unavailable Primary Care Provider [...] topic Shamir Dominguez Personal/Family Self 1985 [address] [place] [address]
[2024-12-19 18:32] LABS: Calprotectin, Fecal 7 mcg/g
== END 2024-12-11 07:51 | disposition home or self-care (01) ==
LOC: HO.LNP 07:50
PROVIDERS: Visit Provider Nurse Practitioner Family
DX: R19.5 Other fecal abnormalities (principal)
CPT/HCPCS: 83993

== ENCOUNTER 2024-12-22 10:13 | Outpatient (REF) | payer OTHER, SELFPAY ==
[2024-12-22 11:35] LABS: Free T4 (Free Thyroxine) 1.12 ng/dL (0.71-1.85); Thyroid Stimulating Hormone 0.96 uIU/mL (0.32-4.0)
--- OUTSIDE RECORDS SUMMARY | 2024-12-22 12:21 | XMS_ITS | Clinical Summary ---
Author Organization [facility] Address [address] [place] [address] Care Team Providers Care Regional Airline Pilot Name Role Phone Unavailable Primary Care Provider [...] topic Shamir Dominguez Personal/Family Self 1985 [address] [facility] [address]
--- OUTSIDE RECORDS SUMMARY | 2024-12-22 12:21 | XMS_ITS | Clinical Summary ---
Author Organization [facility] Address [address] [place] [address] Phone Care Team Providers Care Residential Worker Name Role Phone Physician, No Pcp Primary [...] asthma without complication ([facility]/HCC V28) Take 3 mL (2.5 mg total) [...] Severe persistent asthma ([facility] V28) 2 Overview (11/27/2023): Last Assessment [...] annual screening mammography is recommended Yamila Fair DIRECTOR PHARMACEUTICAL IMG BI PROCEDURES Rachele l Result * HIV Screening (12/09/2017) HIV Screening abstracted Result [facility] Historical Provider HEALTH MAINTENANCE Final Result * Hepatitis C Screening (07/03/2015) Hepatitis C Screening abstracted Historical Provider HEALTH MAINTENANCE Final Result from Last 3 Months or Most Recently Relevant to Health Maintenance Insurance [employer] [facility] Care Teams Residential Worker Relationship Specialty Start Date End Date Physician, No Pcp PCP - General 09/19/24
== END 2024-12-22 10:14 | disposition home or self-care (01) ==
LOC: HO.LAB 10:13
PROVIDERS: Visit Provider Student in an Organized Health Care Education/Training Program
DX: E03.9 Hypothyroidism, unspecified (principal)
CPT/HCPCS: 36415; 84439; 84443

== ENCOUNTER 2024-12-26 07:14 | Outpatient (REF) | payer OTHER, SELFPAY ==
--- OUTSIDE RECORDS SUMMARY | 2024-12-26 07:18 | XMS_ITS | Clinical Summary ---
Author Organization [facility] Address [address] [place] [address] Phone Care Team Providers Care Supervisor Motorcycle [employer] Name Role Phone Physician, No Pcp Primary [...] nebulizer solutionIndication s:Severe persistent asthma without complication ([facility]/HCC V28) Take 3 mL (2.5 mg [...] Anxiety and depression 09/03/2021 Severe persistent asthma ([facility] V28) 2 Overview (11/27/2023): Last [...] PROCEDURE: HISTORICAL TUBAL LIGATION COLONOSCOPY 03/04/2012 PROCEDURE: IN COLONOSCOPY FLX DX W/COLLJ SPEC WHEN PFRMD; COMMENT: normal COLONOSCOPY 12/02/2017 PROCEDURE: HISTORICAL COLONOSCOPY; COMMENT: rectal polyp TA polyp ESOPHAGOGASTRODUODENOSCOPY 12/27/2019 PROCEDURE: IN EGD TRANSORAL BIOPSY SINGLE/MULTIPLE; COMMENT: Dr. Donato - normal-appearing esophagus and duodenum. Stomach had evidence of gastric mucosal congestion. Duodenal biopsy was negative for celiac disease. Gastric biopsy was positive for mild chronic gastritis but negative for H. pylori. COLONOSCOPY 03/27/2021 PROCEDURE: HISTORICAL COLONOSCOPY; COMMENT: tiny polyp ESOPHAGOGASTRODUODENOSCOPY 03/27/2021 PROCEDURE: IN EGD TRANSORAL BIOPSY SINGLE/MULTIPLE; COMMENT: normal, random stomach biopsy negative. OTHER SURGICAL HISTORY 12/20/2021 PROCEDURE: HISTORICAL TOTAL HYSTERECTOMY W/O BSO; COMMENT: RAH, BS CHOLECYSTECTOMY PROCEDURE: IN LAPAROSCOPY SURG CHOLECYSTECTOMY Medical History Medical History [...] annual screening mammography is recommended Yamila Fair TITLE CURATOR IMG BI PROCEDURES Rachele l Result * HIV Screening (12/09/2017) HIV Screening abstracted Result [facility] Historical Provider HEALTH MAINTENANCE Final Result * Hepatitis C Screening (07/03/2015) Hepatitis C Screening abstracted Historical Provider HEALTH MAINTENANCE Final Result from Last 3 Months or Most Recently Relevant to Health Maintenance Insurance [employer] [facility] Care Teams Supervisor [employer] Relationship Specialty Start Date End Date Physician, No Pcp PCP - General 09/19/24
--- OUTSIDE RECORDS SUMMARY | 2024-12-26 07:18 | XMS_ITS | Clinical Summary ---
Author Organization [facility] Address [address] [place] [address] Care Team Providers Care Jig Box Operator Name Role Phone Unavailable Primary Care Provider [...] topic Shamir Dominguez Personal/Family Self 1985 [address] [place] [address]
[2024-12-26 07:57] LABS: Appearance Urine Clear; Glucose Urine UA Negative (Negative); PH 5.5 (5.0-9.0); Specific Gravity - Urine 1.015 (1.005-1.025); UMIC TRIGGER UACC YES
== END 2024-12-26 07:15 | disposition home or self-care (01) ==
LOC: HO.LAB 07:14
DX: R10.9 Unspecified abdominal pain (principal)
CPT/HCPCS: 81001

== ENCOUNTER 2024-12-30 13:34 | Outpatient (REF) | payer OTHER, SELFPAY ==
--- NOTE | ~2024-12-30 | XR_ITS ---
EXAMINATION: XR LUMBAR SPINE 2-3 VIEWS HISTORY: M54.50 - Low back pain, unspecified COMPARISON: There are no prior studies for comparison. FINDINGS: AP, lateral, and coned down views of the lumbar spine are submitted. Osseous mineralization is normal. The patient is status post posterior fusion of L4-S1. There are pedicle screws in the L4 and S1 vertebral bodies as well as spinal stabilization rods. Intervertebral spacers are noted at the L4-5 and L5-S1 levels. Alignment is anatomic. The vertebral bodies maintain normal height without evidence of fracture. The remaining intervertebral disc spaces are maintained. The visualized paraspinal soft tissues are unremarkable. XR/XR lumbar spine 2-3V IMPRESSION: Status post posterior fusion of L4-S1. Electronically signed by: Alessandro Gilliland MD 12/30/2024 01:57 PM SHEELA
--- OUTSIDE RECORDS SUMMARY | 2024-12-30 15:41 | XMS_ITS | Clinical Summary ---
Author Organization [facility] Address [address] [place] [address] Phone Care Team Providers Care Clin Asst Name Role Phone Physician, No Pcp Primary [...] solutionIndication s:Severe persistent asthma without complication ([facility]/HCC V28) Take 3 mL (2.5 [...] and depression 09/03/2021 Severe persistent asthma ([facility] V28) 2 Overview (11/27/2023): Last Assessment [...] PROCEDURE: HISTORICAL TUBAL LIGATION COLONOSCOPY 03/04/2012 PROCEDURE: DE COLONOSCOPY FLX DX W/COLLJ SPEC WHEN PFRMD; COMMENT: normal COLONOSCOPY 12/02/2017 PROCEDURE: HISTORICAL COLONOSCOPY; COMMENT: rectal polyp TA polyp ESOPHAGOGASTRODUODENOSCOPY 12/27/2019 PROCEDURE: DE EGD TRANSORAL BIOPSY SINGLE/MULTIPLE; COMMENT: Dr. Donato - normal-appearing esophagus and duodenum. Stomach had evidence of gastric mucosal congestion. Duodenal biopsy was negative for celiac disease. Gastric biopsy was positive for mild chronic gastritis but negative for H. pylori. COLONOSCOPY 03/27/2021 PROCEDURE: HISTORICAL COLONOSCOPY; COMMENT: tiny polyp ESOPHAGOGASTRODUODENOSCOPY 03/27/2021 PROCEDURE: DE EGD TRANSORAL BIOPSY SINGLE/MULTIPLE; COMMENT: normal, random stomach biopsy negative. OTHER SURGICAL HISTORY 12/20/2021 PROCEDURE: HISTORICAL TOTAL HYSTERECTOMY W/O BSO; COMMENT: RAH, BS CHOLECYSTECTOMY PROCEDURE: DE LAPAROSCOPY SURG CHOLECYSTECTOMY Medical History Medical History [...] annual screening mammography is recommended Yamila Fair [employer] IMG BI PROCEDURES Rachele l Result * HIV Screening (12/09/2017) HIV Screening abstracted Result [facility] Historical Provider HEALTH MAINTENANCE Final Result * Hepatitis C Screening (07/03/2015) Hepatitis C Screening abstracted Historical Provider HEALTH MAINTENANCE Final Result from Last 3 Months or Most Recently Relevant to Health Maintenance Insurance [employer] [facility] Care Teams Clin Asst Relationship Specialty Start Date End Date Physician, No Pcp PCP - General 09/19/24
--- OUTSIDE RECORDS SUMMARY | 2024-12-30 15:41 | XMS_ITS | Clinical Summary ---
Author Organization [facility] Address [address] [place] [address] Care Team Providers Care Instructor Decorating Name Role Phone Unavailable Primary Care Provider [...] Personal/Family Self 1985 [address] [place] [address]
== END 2024-12-30 13:35 | disposition home or self-care (01) ==
LOC: HO.XRAY 13:34
DX: M54.50 Low back pain, unspecified (principal)
CPT/HCPCS: 72100

== ENCOUNTER → 2024-12-30 13:37 | Outpatient (BNV) | payer OTHER, SELFPAY | PROVIDERS: Visit Provider Radiology Diagnostic Radiology | DX: M54.50 Low back pain, unspecified (principal); Z98.1 Arthrodesis status | CPT/HCPCS: 72100 ==

== ENCOUNTER 2025-01-25 10:06 | Outpatient (REF) | payer OTHER, SELFPAY ==
[2025-01-25 10:51] LABS: Appearance Urine Cloudy; Glucose Urine UA Negative (Negative); PH 5.5 (5.0-9.0); Specific Gravity - Urine 1.025 (1.005-1.025); UMIC TRIGGER UACC YES
[2025-01-25 11:25] LABS: Alanine Aminotransferase 26 U/L (0-31); Albumin Level 4.4 g/dL (3.5-5.0); Alkaline Phosphatase 54 U/L (39-117); Anion Gap 10 (12-20); Aspartate Amino Transferase 19 U/L (5-31); Blood Urea Nitrogen 8 mg/dL (9-16); Calcium 8.7 mg/dL (8.4-10.2); Carbon Dioxide 28 mmol/L (22-29); Chloride 104 mmol/L (96-108); Cholesterol 159 mg/dL (<200); Estimated Glomerular Filt Rate > 60; HDL Cholesterol 44 mg/dL (>40); Potassium 4.0 mmol/L (3.3-5.1); Sodium 138 mmol/L (135-145); Total Protein 7.2 g/dL (6.5-8.0); Triglycerides 83 mg/dL (<150)
--- OUTSIDE RECORDS SUMMARY | 2025-01-25 11:33 | XMS_ITS | Clinical Summary ---
Author Organization [facility] Address [address] [place] [address] Care Team Providers Care Sausage Linker Name Role Phone Unavailable Primary Care Provider [...] topic Shamir Dominguez Personal/Family Self 1985 [address] [place] [address]
--- OUTSIDE RECORDS SUMMARY | 2025-01-25 11:33 | XMS_ITS | Clinical Summary ---
Author Organization [facility] Address [address] [place] [address] Phone Care Team Providers Care Guest Service Aide Name Role Phone Physician, No Pcp Primary [...] nebulizer solutionIndication s:Severe persistent asthma without complication ([facility]/HCC V28) Take 3 mL (2.5 mg [...] Anxiety and depression 09/03/2021 Severe persistent asthma (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
== END 2025-01-25 10:07 | disposition home or self-care (01) ==
LOC: HO.LAB 10:06
DX: E05.00 Thyrotoxicosis with diffuse goiter without thyrotoxic crisis or storm (principal); G47.33 Obstructive sleep apnea (adult) (pediatric); E03.9 Hypothyroidism, unspecified; K76.0 Fatty (change of) liver, not elsewhere classified; R10.9 Unspecified abdominal pain; E66.813 Obesity, class 3; Z68.43 Body mass index [BMI] 50.0-59.9, adult
CPT/HCPCS: 36415; 80053; 80061; 81001; 82306

== ENCOUNTER 2025-02-02 08:48 | Outpatient (AMB) | payer OTHER, SELFPAY ==
[2025-02-02 09:10] VITALS: BP 122/68; PULSE 79; O2SAT 98; BMI 33.9
--- NOTE | 2025-02-02 09:10 | MHC.PC.OV ---
Vital Signs 02/02/25 09:10 Height 4 ft 11 in Weight 168 lb BMI 33.9 BP 122/68 Blood Pressure Location Lt brachial Position Sitting Pulse 79 Pulse Source Pulse Oximeter Pulse Oximetry (%) 98 Oxygen Delivery Method Room Air Intake Visit Reasons: 3 month f/u Allergies egg (eggs) Allergy (Intermediate, Verified 02/02/25 09:24) Rash gluten Allergy (Intermediate, Verified 02/02/25 09:24) Hives From SOLU-MEDROL Allergy (Unknown, Uncoded 02/02/25 09:24) NAUSEA AND VOMITTING Medication List - Last Reconciled 02/02/25 by SHIV Oneil albuterol sulfate mg continuous nebulization albuterol sulfate 90 mcg/actuation inhalation ammonium lactate 12% appl topical BID PRN atorvastatin 20 mg PO DAILY betamethasone dipropionate 0.05% appl topical BID PRN bisacodyl (Dulcolax (bisacodyl)) 20 mg (4 x 5 mg) PO ONCE 1 day cetirizine 10 mg PO DAILY cholecalciferol (vitamin D3) 50 mcg PO DAILY [id number]-ioiifgrpm-vrettfyj 200-62.5-25 mcg (Trelegy Ellipta) 1 inh inhalation DAILY 30 days hydroxyzine HCl 25 mg PO BEDTIME PRN levothyroxine (Synthroid) 100 mcg PO DAILY meclizine 12.5 mg PO TID PRN montelukast 10 mg PO DAILY pantoprazole 40 mg PO DAILY PRN polyethylene glycol 3350 (Miralax) 238 grams PO ONCE triamcinolone acetonide 1 spray intranasal DAILY [wrist brace As directed, bilateral wrist braces, medium strenght to wear during night and day prn pain.] Tobacco use date assessed: 10/28/24 Dental Screening Dental Screen Date: 10/28/24 HPI HPI Comments History of Present Illness Details The patient is a 39 year old female presenting with back pain and suspected urinary tract infection. She has been experiencing intermittent back and kidney pain for the last 2-3 weeks, with some days being worse than others. The pain is bilateral but more pronounced on the right side. She reports associated dysuria and a sensation of incomplete bladder emptying. She denies any history of kidney stones. A urinalysis from the 3rd showed some blood but no significant bacteria. She has a history of blood in her urine. She has cysts in both kidneys, with a larger one on the right, which may explain the hematuria. A cystoscopy performed about a year ago was normal. An abdominal ultrasound was done 2-3 months ago, primarily to look at her liver. Regarding her weight, she initially lost almost 22 pounds but has reached a plateau in the last two weeks, and recently gained 4 pounds, from 164 to 168 pounds. She reports feeling tired, similar to how she felt before starting her weight loss journey. She also reports intermittent constipation, consistent with her history of irritable bowel syndrome, for which she uses Miralax 2-3 times a week. 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 She received a cortisone injection for this about two years ago. She follows with a manager of global, Dr. Dann Castillo for her back issues. Health Maintenance - Recent lab results including CBC, chemistry panel, liver enzymes, cholesterol, vitamin D, and thyroid levels are all within normal limits. - Patient has an appointment today for a pulmonary function test. Social History - The patient is sexually active. - Reports successful weight loss of nearly 22 lbs, attributing it to using an AI tool for dietary guidance and practicing 16-hour intermittent fasting. - Reports improved sleep since losing weight. - She does not desire to become . Results - CBC: Appears good. - Chemistry panel: Liver enzymes, cholesterol, vitamin D, and thyroid levels are fine. - Urinalysis (3rd): Showed a small amount of blood and trace bacteria, which is not indicative of a UTI. - Cystoscopy (approx. 1 year ago): Normal. - Abdominal Ultrasound (2-3 months ago): Showed cysts in both kidneys, with a larger one on the right; did not show kidney stones. [facility] Medical History (Updated 02/02/25 @ 11:25 by SHIV Oneil) Change in stool Eczema Nasal polyps Sleep apnea treated with continuous positive airway pressure (CPAP) BMI 37.0-37.9, adult Non-celiac gluten sensitivity IBS (irritable bowel syndrome) History of fatty infiltration of liver Abnormal large bowel motility Lumbar disc herniation Fatty liver Obesity GERD (gastroesophageal reflux disease) Asthma Hypothyroidism Graves disease Surgical History Hx of section Hx of cholecystectomy Family History (Updated 02/02/25 @ 09:11 by Lula Melchor [facility]) Father Colon cancer Other Breast cancer Diabetes Hypercholesteremia Hypertension Social History Housing: House Alcohol intake: never Patient Tobacco Use Status: Former Tobacco user Tobacco use type: Cigarette e-Cigarette/Vaping Use: Never Used Second Hand Smoke Exposure: No service: No Current occupational status: employed Current occupational exposures/hazards: Yes Cognitive needs: No Hearing needs: No Vision needs: No Questionnaire PHQ-9 Over the last 2 weeks, how often have you been bothered by any of the following problems? Depression Screening Interpretation: Positive Depression Screening Done: Yes Source: Developed by Drs. Alessandro Rivera, Desiree Sarabia, Elia Ricketts and colleagues, with an educational vincenzo from [employer]. Thrive Questionnaire Date Thrive assessed: 07/22/24 I am a: Patient What is your living situation today?: I have a steady place to live Within the past 12 months, did the food you bought not last and you didn't have the money to get more?: Sometimes True Within the past 12 months, did you worry whether your food would run out before you got money to buy more?: Often true Do you have trouble paying for medicines?: Yes Do you have trouble getting transportation to medical appointments?: No Do you have trouble paying your heating and electricity bill?: Yes Do you have trouble taking care of your child, family member or friend?: No Do you have trouble with day-to-day activities such as bathing, preparing meals, shopping, managing finances, etc.?: No Are you currently unemployed and looking for a job?: No Are you interested in more education?: Yes Currently or been in a relationship where the following occur: No concerns reported THRIVE Score: 3 DAYRON-7 AMB Questionnaire DAYRON-7 Date DAYRON - 7 assessed: 10/28/24 Source: Developed by Drs. Alessandro Rivera, Desiree Sarabia, Elia Ricketts and colleagues, with an educational vincenzo from [employer]. Review of Systems Narrative Review of Systems - Constitutional: Reports fatigue. - Genitourinary: Reports intermittent pain in the kidney area, more on the right but present bilaterally, for the past 2-3 weeks. - Reports dysuria and a sensation of incomplete bladder emptying. - Denies vaginal discharge. - Gastrointestinal: Reports intermittent constipation alternating with liquid stools. - Musculoskeletal: Reports intermittent back pain. Const Denies body aches, Denies chills, Reports fatigue, Denies fever(s), Denies headache(s), Reports lethargy and Denies poor appetite Eyes Reports no additional complaints ENT Denies dysphagia, Denies dizziness, Denies headache(s) and Denies odynophagia Card Denies chest pain, Denies syncope, Denies edema, Denies irregular heart rhythm, Denies lightheadedness and Denies dyspnea Resp Denies cough and Denies dyspnea GI Denies abdominal pain, Reports bloating (On and off), Reports constipation (On and off), Denies dysphagia, Reports dyspepsia (On and off), Reports heartburn (Intermittent), Denies diarrhea, Denies nausea, Denies odynophagia and Denies vomiting Reports no additional complaints Musc Reports back pain Skin/Breast Reports system reviewed and no additional complaints, except as documented Neuro Denies dizziness, Denies syncope and Denies headache(s) Psych Reports anxiety Endo Reports fatigue Physical exam (Primary Care) Vital Signs: Oxygen Delivery Method Room Air 02/02/25 09:10 Tobacco/Smoking Status: Tobacco use Status Tobacco use date assessed 10/28/24 12/19/24 10:33 Patient Tobacco Use Status Former Tobacco user 12/19/24 10:33 e-Cigarette/Vaping Use Never Used 12/19/24 10:33 Depression Screening Interpretation: Positive Thrive Assessment: Date of Thrive Assessment Date Thrive assessed 07/22/24 02/02/25 08:49 Currently or been in a relationship where the following occur: No concerns reported Narrative Physical Exam - Lungs: Clear to auscultation bilaterally. Const General: cooperative, healthy appearing, comfortable and no acute distress Orientation/consciousness: patient oriented x3 HENMT Head: Yes normocephalic Ears: hearing grossly normal bilaterally General nose exam: Normal external nose present Eyes General: appearance normal, both eyes and all related structures Conjunctivae: conjunctivae normal Neck Neck: Yes full ROM and Yes no lymphadenopathy Resp Effort & Inspection: normal respiratory effort Auscultation: clear to auscultation bilaterally, no crackles, no rales, no rhonchi and no wheezes Cardio Rate: regular rate Rhythm: regular rhythm GI Inspection: Yes obesity Palpation (GI): Soft to palpation and nontender Auscultation: normal bowel sounds Skin General skin exam: no rashes or lesions noted Neuro General: patient oriented x3 Gait exam (Neuro): Normal gait present Extrem General: Yes normal to inspection, Yes full ROM and No edema Psych Affect: normal affect Attitude: cooperative Insight: Good insight present (Psych) Judgement: Good judgement present (Psych) Results Reviewed Results Reviewed: Laboratory Tests 11/30/24 12/11/24 12/22/24 07:09 17:31 10:19 WBC 8.0 RBC 4.82 Hgb 13.4 Hct 41.5 MCV 86.1 MCH 27.8 MCHC 32.3 RDW 13.6 Plt Count 285 MPV 10.2 Sodium Potassium Chloride Carbon Dioxide Anion Gap BUN Creatinine Estim Creat Clear Calc Estimated GFR Fasting Glucose Calcium Total Bilirubin AST ALT Alkaline Phosphatase Total Protein Albumin Triglycerides Cholesterol LDL Cholesterol, Calc HDL Cholesterol 25-OH Vitamin D Total TSH 0.96 Free T4 1.12 Urine Color Urine Appearance Urine pH Ur Specific [place] Urine Protein Urine Glucose (UA) Urine Ketones Urine Blood Urine Nitrite Ur Leukocyte Esterase Urine RBC Urine WBC Ur Squamous Epith Cells Urine Bacteria Hyaline Casts Stool Calprotectin 7 IgE 34 01/25/25 01/25/25 10:10 10:16 WBC RBC Hgb Hct MCV MCH MCHC RDW Plt Count MPV Sodium 138 Potassium 4.0 Chloride 104 Carbon Dioxide 28 Anion Gap 10 L BUN 8 L Creatinine 0.66 Estim Creat Clear Calc Not Reportable Estimated GFR > 60 Fasting Glucose 88 Calcium 8.7 Total Bilirubin 0.8 AST 19 ALT 26 Alkaline Phosphatase 54 Total Protein 7.2 Albumin 4.4 Triglycerides 83 Cholesterol 159 LDL Cholesterol, Calc 99 HDL Cholesterol 44 25-OH Vitamin D Total 31.0 TSH Free T4 Urine Color Yellow Urine Appearance Cloudy Urine pH 5.5 Ur Specific [place] 1.025 Urine Protein Negative Urine Glucose (UA) Negative Urine Ketones Negative Urine Blood Small (1+) H Urine Nitrite Negative Ur Leukocyte Esterase Negative Urine RBC 3-5 H Urine WBC 0-5 Ur Squamous Epith Cells 6-10 Urine Bacteria Trace Hyaline Casts 0-2 Stool Calprotectin IgE Coding Level of Care Code Est Pt Level 4 (10873) Diagnoses Fatty liver K76.0 Gastroesophageal reflux disease, unspecified whether esophagitis present K21.9 Esophagitis presence: esophagitis presence not specified Severe persistent asthma, unspecified whether complicated J45.50 Asthma severity: severe Asthma persistence: persistent Asthma complication type: unspecified Graves disease E05.00 Irritable bowel syndrome with both constipation and diarrhea K58.2 Sleep apnea, unspecified type G47.30 Sleep apnea type: unspecified type Anxiety and depression F41.9; F32.A Class 3 severe obesity with body mass index (BMI) of 50.0 to 59.9 in adult, unspecified obesity type, unspecified whether serious comorbidity present E66.813; Z68.43 Obesity type: unspecified obesity type Obesity classification: adult class 3 (BMI >= 40) Serious obesity comorbidity presence: unspecified whether serious comorbidity present Body mass index: BMI 50.0-59.9 Pure hypercholesterolemia E78.00 Hyperlipidemia type: pure hypercholesterolemia Vitamin D deficiency E55.9 Chronic bilateral low back pain without sciatica M54.50; G89.29 Chronicity: chronic Back pain laterality: bilateral Sciatica presence: without sciatica Bilateral flank pain R10.A3 Laterality: bilateral Dysuria R30.0 Irritable bowel syndrome with constipation K58.1 Irritable bowel syndrome type: with constipation Time Spent (min) 39 Assessment & Plan Assessment & Plan (1) Fatty liver: Code(s): K76.0 - Fatty (change of) liver, not elsewhere classified Category: Medical Plan: History of fatty liver disease. Encouraged to decrease or discontinue alcohol and Tylenol usage to prevent damaging the liver Reinforced low-cholesterol diet and activity as tolerated has proven to decrease fatty liver. Liver enzymes within normal limits. We will continue to monitor. Follow up with GI as scheduled (2) GERD (gastroesophageal reflux disease): Code(s): K21.9 - Gastro-esophageal reflux disease without esophagitis Category: Medical Qualifiers: Esophagitis presence: esophagitis presence not specified Qualified Code(s): K21.9 - Gastro-esophageal reflux disease without esophagitis Plan: Do not eat meals or drink carbonated beverages within 3 hr of bedtime Decrease the amount of fried, fatty, and spicy foods to decrease gastric acid production Raise the head of the bed using 4 to 6-inch blocks, especially if nocturnal symptoms are present Lose weight if indicated; avoid tight-fitting clothing, especially around the waist Avoid foods that relax the Lower esophageal sphincter (chocolate, peppermint, high-fat foods etc.,) Continue pantoprazole 40 mg daily (3) Asthma: Code(s): J45.909 - Unspecified asthma, uncomplicated Category: Medical Qualifiers: Asthma severity: severe Asthma persistence: persistent Asthma complication type: unspecified Qualified Code(s): J45.50 - Severe persistent asthma, uncomplicated Plan: Continue fluticasone furoate-vilanterol 200-25mcg/dose (Breo Ellipta) 1 puff daily, montelukast 10mg daily, Spiriva Respimat 2 puffs inh daily. The patient also has albuterol sulfate via neb and MDI without directions will clarify on next visit. In addition, the patient has Mepollizumab listed on her med list without any cleared direction as well. According to patient, she has severe asthma Reports quit smoking one year ago, but started gaining weight and that has worsens her asthma symptoms states that she is in need of a new filling hand. Referral was placed and the patient was seen and switched to [facility]. There was also discussion about possible starting dupixent due to her history of nasal polyposis. 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 Reports that she is sensitive to gluten and eggs. She also reported large bowel abnormal motility. Encouraged FODMAP diet. Follow up with GI as scheduled (6) Sleep apnea: Code(s): G47.30 - Sleep apnea, unspecified Category: Medical Qualifiers: Sleep apnea type: unspecified type Qualified Code(s): G47.30 - Sleep apnea, unspecified Plan: The patient has sleep apnea and uses a CPAP machine. Due to insurance changes, she is experiencing difficulty affording new equipment. She was seen by sleep medicine and a new Sleep study was reordered CBT referral was placed to help with grieving the of her mother. Follow up with sleep medicine as scheduled (7) Anxiety and depression: Code(s): F41.9 - Anxiety disorder, unspecified; F32.A - Depression, unspecified Category: Medical Plan: Reports having difficulty dealing with her mother passing Encouraged CBT A counseling referral was placed on her previous visit (8) Obesity: Code(s): E66.9 - Obesity, unspecified Category: Medical Qualifiers: Obesity type: unspecified obesity type Obesity classification: adult class 3 (BMI >= 40) Serious obesity comorbidity presence: unspecified whether serious comorbidity present Body mass index: BMI 50.0-59.9 Qualified Code(s): E66.813 - Obesity, class 3; Z68.43 - Body mass index [BMI] 50.0-59.9, adult Plan: The patient was referred to weight management and was ordered a GLP 1. Apparently has not gone the medication, possibly insurance issues. The patient has experienced a plateau in her weight loss journey despite maintaining her diet and fasting routine. To address this, a combination of phentermine and topiramate will be initiated. Phentermine, a stimulant, will be started at a low dose and taken one hour before breakfast. The dose will be titrated based on its effect on her appetite. Blood pressure will be monitored due to the stimulant nature of phentermine. (9) HLD (hyperlipidemia): Code(s): E78.5 - Hyperlipidemia, unspecified Category: Medical Qualifiers: Hyperlipidemia type: pure hypercholesterolemia Qualified Code(s): E78.00 - Pure hypercholesterolemia, unspecified Plan: Triglycerides 83, total cholesterol 159, LDL 99, HDL 44 improved from Triglycerides 84, total cholesterol 187, LDL 127, HDL 44 Discussed lifestyle modifications including dietary changes and physical activity Continue atorvastatin 20 mg daily We will recheck lipid panel in 3 months (10) Vitamin D deficiency: Code(s): E55.9 - Vitamin D deficiency, unspecified Category: Medical Plan: Start cholecalciferol 50 mcg daily (11) Low back pain: Code(s): M54.50 - Low back pain, unspecified Category: Medical Qualifiers: Chronicity: chronic Back pain laterality: bilateral Sciatica presence: without sciatica Qualified Code(s): M54.50 - Low back pain, unspecified; G89.29 - Other chronic pain Plan: The patient's back pain is multifactorial, with potential contribution from the kidneys, but also from her known history of back surgery and subsequent arthritis, for which she has previously received a cortisone injection. She has an established relationship with a manager of global, Dr. Dann Castillo. She will check if a new referral is needed to see her manager of global for re-evaluation of her back pain (12) Flank pain: Code(s): R10.9 - Unspecified abdominal pain Category: Medical Qualifiers: Laterality: bilateral Qualified Code(s): R10.A3 - Flank pain, bilateral Plan: Patient also has chronic back pain and isn't sure if this is related. The patient does have hematuria but has bilateral cysts in the kidney, larger in the right. We will refer the patient to Urology for further evaluation. (13) Dysuria: Code(s): R30.0 - Dysuria Category: Medical Plan: The patient's urinary symptoms are not consistent with a UTI based on recent urinalysis which showed only trace bacteria. The presence of bilateral renal cysts, with a larger one on the right, is a likely explanation for her history of hematuria. Differential diagnosis includes interstitial cystitis. Plan includes a referral to urology for further evaluation, possibly including a cystoscopy, to investigate the cause of her sensation of incomplete bladder emptying. Urine and blood tests for sexually transmitted infections will also be conducted to rule out other causes (14) IBS (irritable bowel syndrome): Code(s): K58.9 - Irritable bowel syndrome, unspecified Category: Medical Qualifiers: Irritable bowel syndrome type: with constipation Qualified Code(s): K58.1 - Irritable bowel syndrome with constipation Plan: The patient reports ongoing issues with constipation and alternating stool consistency, characteristic of her irritable bowel syndrome. She currently uses Miralax two to three times a week. It was recommended that she take Miralax daily to maintain regularity and prevent hard stool from causing overflow diarrhea Orders: Orders UA CC w/rflx Micro + Cult Today R10.24 - Suprapubic pain, R30.0 - Dysuria CT NG by PCR Urine Today R10.24 - Suprapubic pain, R30.0 - Dysuria Syphilis Screen Today R10.24 - Suprapubic pain, R30.0 - Dysuria HIV Ab/Ag Today R10.24 - Suprapubic pain, R30.0 - Dysuria Complete Blood Count Auto Diff 3 Months E03.9 - Hypothyroidism, unspecified, E05.00 - Thyrotoxicosis with diffuse goiter without thyrotoxic crisis or storm, E55.9 - Vitamin D deficiency, unspecified, E66.01 - Morbid (severe) obesity due to excess calories, E66.813 - Obesity, class 3, E78.00 - Pure hypercholesterolemia, unspecified, F32.A - Depression, unspecified, F41.9 - Anxiety disorder, unspecified, G47.33 - Obstructive sleep apnea (adult) (pediatric), K21.9 - Gastro-esophageal reflux disease without esophagitis, K58.1 - Irritable bowel syndrome with constipation, Z68.37 - Body mass index [BMI] 37.0-37.9, adult, Z68.43 - Body mass index [BMI] 50.0-59.9, adult, Z87.19 - Personal history of other diseases of the digestive system TSH reflex Free T4 3 Months E03.9 - Hypothyroidism, unspecified, E05.00 - Thyrotoxicosis with diffuse goiter without thyrotoxic crisis or storm, E55.9 - Vitamin D deficiency, unspecified, E66.01 - Morbid (severe) obesity due to excess calories, E66.813 - Obesity, class 3, E78.00 - Pure hypercholesterolemia, unspecified, F32.A - Depression, unspecified, F41.9 - Anxiety disorder, unspecified, G47.33 - Obstructive sleep apnea (adult) (pediatric), K21.9 - Gastro-esophageal reflux disease without esophagitis, K58.1 - Irritable bowel syndrome with constipation, Z68.37 - Body mass index [BMI] 37.0-37.9, adult, Z68.43 - Body mass index [BMI] 50.0-59.9, adult, Z87.19 - Personal history of other diseases of the digestive system UA CC w/rflx Micro + Cult 3 Months E03.9 - Hypothyroidism, unspecified, E05.00 - Thyrotoxicosis with diffuse goiter without thyrotoxic crisis or storm, E55.9 - Vitamin D deficiency, unspecified, E66.01 - Morbid (severe) obesity due to excess calories, E66.813 - Obesity, class 3, E78.00 - Pure hypercholesterolemia, unspecified, F32.A - Depression, unspecified, F41.9 - Anxiety disorder, unspecified, G47.33 - Obstructive sleep apnea (adult) (pediatric), K21.9 - Gastro-esophageal reflux disease without esophagitis, K58.1 - Irritable bowel syndrome with constipation, Z68.37 - Body mass index [BMI] 37.0-37.9, adult, Z68.43 - Body mass index [BMI] 50.0-59.9, adult, Z87.19 - Personal history of other diseases of the digestive system Vitamin D 25-OH Total 3 Months E03.9 - Hypothyroidism, unspecified, E05.00 - Thyrotoxicosis with diffuse goiter without thyrotoxic crisis or storm, E55.9 - Vitamin D deficiency, unspecified, E66.01 - Morbid (severe) obesity due to excess calories, E66.813 - Obesity, class 3, E78.00 - Pure hypercholesterolemia, unspecified, F32.A - Depression, unspecified, F41.9 - Anxiety disorder, unspecified, G47.33 - Obstructive sleep apnea (adult) (pediatric), K21.9 - Gastro-esophageal reflux disease without esophagitis, K58.1 - Irritable bowel syndrome with constipation, Z68.37 - Body mass index [BMI] 37.0-37.9, adult, Z68.43 - Body mass index [BMI] 50.0-59.9, adult, Z87.19 - Personal history of other diseases of the digestive system Lipid Panel 3 Months E03.9 - Hypothyroidism, unspecified, E05.00 - Thyrotoxicosis with diffuse goiter without thyrotoxic crisis or storm, E55.9 - Vitamin D deficiency, unspecified, E66.01 - Morbid (severe) obesity due to excess calories, E66.813 - Obesity, class 3, E78.00 - Pure hypercholesterolemia, unspecified, F32.A - Depression, unspecified, F41.9 - Anxiety disorder, unspecified, G47.33 - Obstructive sleep apnea (adult) (pediatric), K21.9 - Gastro-esophageal reflux disease without esophagitis, K58.1 - Irritable bowel syndrome with constipation, Z68.37 - Body mass index [BMI] 37.0-37.9, adult, Z68.43 - Body mass index [BMI] 50.0-59.9, adult, Z87.19 - Personal history of other diseases of the digestive system Comprehensive [place]. Panel Fast 3 Months E03.9 - Hypothyroidism, unspecified, E05.00 - Thyrotoxicosis with diffuse goiter without thyrotoxic crisis or storm, E55.9 - Vitamin D deficiency, unspecified, E66.01 - Morbid (severe) obesity due to excess calories, E66.813 - Obesity, class 3, E78.00 - Pure hypercholesterolemia, unspecified, F32.A - Depression, unspecified, F41.9 - Anxiety disorder, unspecified, G47.33 - Obstructive sleep apnea (adult) (pediatric), K21.9 - Gastro-esophageal reflux disease without esophagitis, K58.1 - Irritable bowel syndrome with constipation, Z68.37 - Body mass index [BMI] 37.0-37.9, adult, Z68.43 - Body mass index [BMI] 50.0-59.9, adult, Z87.19 - Personal history of other diseases of the digestive system Free T4 (Free Thyroxine) 3 Months E03.9 - Hypothyroidism, unspecified, E05.00 - Thyrotoxicosis with diffuse goiter without thyrotoxic crisis or storm, E55.9 - Vitamin D deficiency, unspecified, E66.01 - Morbid (severe) obesity due to excess calories, E66.813 - Obesity, class 3, E78.00 - Pure hypercholesterolemia, unspecified, F32.A - Depression, unspecified, F41.9 - Anxiety disorder, unspecified, G47.33 - Obstructive sleep apnea (adult) (pediatric), K21.9 - Gastro-esophageal reflux disease without esophagitis, K58.1 - Irritable bowel syndrome with constipation, Z68.37 - Body mass index [BMI] 37.0-37.9, adult, Z68.43 - Body mass index [BMI] 50.0-59.9, adult, Z87.19 - Personal history of other diseases of the digestive system Referrals Urology Referral R10.24 - Suprapubic pain, R30.0 - Dysuria Medications: New phentermine must administer 2 hours after breakfast 15 mg PO DAILY 30 caps 0RF topiramate 50 mg PO DAILY 30 tabs 3RF
== END 2025-02-02 09:57 | disposition home or self-care (01) ==
LOC: HO.HMCH 08:49
DX: J45.50 Severe persistent asthma, uncomplicated (principal); E66.813 Obesity, class 3; Z68.43 Body mass index [BMI] 50.0-59.9, adult; K76.0 Fatty (change of) liver, not elsewhere classified; K21.9 Gastro-esophageal reflux disease without esophagitis; E05.00 Thyrotoxicosis with diffuse goiter without thyrotoxic crisis or storm; K58.2 Mixed irritable bowel syndrome; G47.30 Sleep apnea, unspecified; F41.9 Anxiety disorder, unspecified; F32.A Depression, unspecified; E78.00 Pure hypercholesterolemia, unspecified; E55.9 Vitamin D deficiency, unspecified; M54.50 Low back pain, unspecified; G89.29 Other chronic pain; R10.A3 Flank pain, bilateral; R30.0 Dysuria; K58.1 Irritable bowel syndrome with constipation

== ENCOUNTER 2025-02-02 13:36 | Outpatient (REF) | payer OTHER, SELFPAY ==
--- NOTE | 2025-02-02 13:46 | PFT_ITS ---
Flows: FEV1: 81 % of predicted at 2.06 L FVC: 86 % of predicted at 2.63 L FEV1/FVC: 78 % Bronchodilator response: Present Volumes: Total lung capacity: 72 % of predicted at 3.16 L Residual volume: 62 % of predicted at 0.68 L Slow vital capacity: 75 % of predicted at 2.48 L Expiratory reserve volume: 26 % of predicted at 0.25 L Diffusion capacity: Normal Impression: [id number] restrictive ventilatory defect with positive bronchodilator response. Decreased expiratory reserve volume suggests extrathoracic restriction likely secondary to abdominal obesity. MTDD
[2025-02-02 14:29] VITALS: PULSE 78
--- OUTSIDE RECORDS SUMMARY | 2025-02-02 20:49 | XMS_ITS | Clinical Summary ---
Author Organization [employer] [facility] Prior to 07/23/24 Address [address] [place] [address] Care Team Providers Care Tool Machinist Name Role Phone Unavailable Primary Care Provider [...] this topic Shamir Dominguez Personal/Family Self 1985 [address] [place] [address]
--- OUTSIDE RECORDS SUMMARY | 2025-02-02 20:49 | XMS_ITS | Clinical Summary ---
Author Organization [facility] Address [address] [place] [address] Phone Care Team Providers Care Life Teacher Name Role Phone Physician, No Pcp Primary [...] nebulizer solutionIndication s:Severe persistent asthma without complication (CMS/HCC V28) Take 3 mL (2.5 mg total) [...] Anxiety and depression 09/03/2021 Severe persistent asthma 06/14/2021 Overview (11/27/2023): Last Assessment & Plan: Severe [...] PM EST Sexual Orientation Not on file Last Filed Vital Signs Vital Sign Reading [...] 3-dose series) 03/31/2024 03/03/2024 COVID-19 Vaccine ( - 2024- season) 2024 01/29/2021, 06/15/2020, 05/24/2020 [...] to Health Maintenance Insurance [employer] [facility] Care Teams Life Teacher Relationship Specialty Start Date End Date Physician, No Pcp PCP - General 09/19/24
== END 2025-02-02 13:37 | disposition home or self-care (01) ==
LOC: HO.RESP 13:36
PROVIDERS: Visit Provider Hospitalist
DX: J45.50 Severe persistent asthma, uncomplicated (principal); K76.0 Fatty (change of) liver, not elsewhere classified; K21.9 Gastro-esophageal reflux disease without esophagitis; E05.00 Thyrotoxicosis with diffuse goiter without thyrotoxic crisis or storm; K58.2 Mixed irritable bowel syndrome; G47.30 Sleep apnea, unspecified; F41.9 Anxiety disorder, unspecified; F32.A Depression, unspecified; E66.813 Obesity, class 3; E78.00 Pure hypercholesterolemia, unspecified; E55.9 Vitamin D deficiency, unspecified; M54.50 Low back pain, unspecified; G89.29 Other chronic pain; R10.A3 Flank pain, bilateral; R30.0 Dysuria; K58.1 Irritable bowel syndrome with constipation; Z68.33 Body mass index [BMI] 33.0-33.9, adult
CPT/HCPCS: 94060; 94640; 94727; 94729

== ENCOUNTER → 2025-02-02 13:46 | Outpatient (BNV) | payer OTHER, SELFPAY | PROVIDERS: Visit Provider Internal Medicine Pulmonary Disease | DX: J45.50 Severe persistent asthma, uncomplicated (principal) | CPT/HCPCS: 94060; 94727; 94729 ==

== ENCOUNTER 2025-02-08 13:18 | Outpatient (REF) | payer OTHER, SELFPAY ==
[2025-02-08 14:31] LABS: Appearance Urine Cloudy; Glucose Urine UA Negative (Negative); PH 6.0 (5.0-9.0); Specific Gravity - Urine 1.025 (1.005-1.025); UMIC TRIGGER UACC YES
--- OUTSIDE RECORDS SUMMARY | 2025-02-08 17:30 | XMS_ITS | Clinical Summary ---
Author Organization [employer] [facility] Prior to 07/23/24 Address [address] [place] [address] Care Team Providers Care Keyboarding Clerk Name Role Phone Unavailable Primary Care Provider [...] this topic Shamir Dominguez Personal/Family Self 1985 [address] [place] [address]
--- OUTSIDE RECORDS SUMMARY | 2025-02-08 17:30 | XMS_ITS | Clinical Summary ---
Author Organization [facility] Address [address] [place] [address] Phone Care Team Providers Care Field Artillery Fire Control Man Name Role Phone Physician, No Pcp Primary [...] PROCEDURE: HISTORICAL TUBAL LIGATION COLONOSCOPY 03/04/2012 PROCEDURE: [place] COLONOSCOPY FLX DX W/COLLJ SPEC WHEN PFRMD; COMMENT: normal COLONOSCOPY 12/02/2017 PROCEDURE: HISTORICAL COLONOSCOPY; COMMENT: rectal polyp TA polyp ESOPHAGOGASTRODUODENOSCOPY 12/27/2019 PROCEDURE: [place] EGD TRANSORAL BIOPSY SINGLE/MULTIPLE; COMMENT: Dr. Donato - normal-appearing esophagus and duodenum. Stomach had evidence of gastric mucosal congestion. Duodenal biopsy was negative for celiac disease. Gastric biopsy was positive for mild chronic gastritis but negative for H. pylori. COLONOSCOPY 03/27/2021 PROCEDURE: HISTORICAL COLONOSCOPY; COMMENT: tiny polyp ESOPHAGOGASTRODUODENOSCOPY 03/27/2021 PROCEDURE: [place] EGD TRANSORAL BIOPSY SINGLE/MULTIPLE; COMMENT: normal, random stomach biopsy negative. OTHER SURGICAL HISTORY 12/20/2021 PROCEDURE: HISTORICAL TOTAL HYSTERECTOMY W/O BSO; COMMENT: RAH, BS CHOLECYSTECTOMY PROCEDURE: [place] LAPAROSCOPY SURG CHOLECYSTECTOMY Medical History Medical History [...] to Health Maintenance Insurance [employer] [facility] Care Teams Field Artillery Fire Control Man Relationship Specialty Start Date End Date Physician, No Pcp PCP - General 09/19/24
[2025-02-09 04:03] LABS: HIV Num 1 0.07 S/CO (0.00-0.99)
[2025-02-09 04:58] LABS: Syphilis Screen Nonreactive (Nonreactive)
== END 2025-02-08 13:19 | disposition home or self-care (01) ==
LOC: HO.LAB 13:18
DX: R10.24 Suprapubic pain (principal); R30.0 Dysuria; Z11.4 Encounter for screening for human immunodeficiency virus [HIV]; Z01.84 Encounter for antibody response examination
CPT/HCPCS: 36415; 81001; 81003; 86780; 87389

== ENCOUNTER 2025-02-09 07:18 | Outpatient (REF) | payer OTHER, SELFPAY ==
--- OUTSIDE RECORDS SUMMARY | 2025-02-09 07:21 | XMS_ITS | Clinical Summary ---
Author Organization [facility] Address [address] [place] [address] Phone Care Team Providers Care Bioinformatics Support Specialist Name Role Phone Physician, No Pcp Primary [...] PROCEDURE: HISTORICAL TUBAL LIGATION COLONOSCOPY 03/04/2012 PROCEDURE: [place] COLONOSCOPY FLX DX W/COLLJ SPEC WHEN PFRMD; COMMENT: normal COLONOSCOPY 12/02/2017 PROCEDURE: HISTORICAL COLONOSCOPY; COMMENT: rectal polyp TA polyp ESOPHAGOGASTRODUODENOSCOPY 12/27/2019 PROCEDURE: [place] EGD TRANSORAL BIOPSY SINGLE/MULTIPLE; COMMENT: Dr. Donato - normal-appearing esophagus and duodenum. Stomach had evidence of gastric mucosal congestion. Duodenal biopsy was negative for celiac disease. Gastric biopsy was positive for mild chronic gastritis but negative for H. pylori. COLONOSCOPY 03/27/2021 PROCEDURE: HISTORICAL COLONOSCOPY; COMMENT: tiny polyp ESOPHAGOGASTRODUODENOSCOPY 03/27/2021 PROCEDURE: [place] EGD TRANSORAL BIOPSY SINGLE/MULTIPLE; COMMENT: normal, random stomach biopsy negative. OTHER SURGICAL HISTORY 12/20/2021 PROCEDURE: HISTORICAL TOTAL HYSTERECTOMY W/O BSO; COMMENT: RAH, BS CHOLECYSTECTOMY PROCEDURE: [place] LAPAROSCOPY SURG CHOLECYSTECTOMY Medical History Medical History [...] to Health Maintenance Insurance [employer] [facility] Care Teams Bioinformatics Support Specialist Relationship Specialty Start Date End Date Physician, No Pcp PCP - General 09/19/24
--- OUTSIDE RECORDS SUMMARY | 2025-02-09 07:21 | XMS_ITS | Clinical Summary ---
Author Organization [facility] Prior to 07/23/24 Address [address] [place] [address] Care Team Providers Care Founder And Ceo Name Role Phone Unavailable Primary Care Provider [...] this topic Shamir Dominguez Personal/Family Self 1985 [address] [place] [address]
[2025-02-09 09:02] LABS: CT PCR Urine NOT DETECTED (Not Detect.); NG PCR Urine NOT DETECTED (Not Detect.)
== END 2025-02-09 07:19 | disposition home or self-care (01) ==
LOC: HO.LNP 07:18
DX: R10.24 Suprapubic pain (principal); R30.0 Dysuria; Z20.2 Contact with and (suspected) exposure to infections with a predominantly sexual mode of transmission
CPT/HCPCS: 87491; 87591

== ENCOUNTER 2025-02-14 13:56 | Outpatient (AMB) | payer OTHER, SELFPAY ==
[2025-02-14 13:58] VITALS: BP 96/60; PULSE 93; O2SAT 97; BMI 33.6
--- NOTE | 2025-02-14 13:58 | MHC.OFFVIS ---
Vital Signs 02/14/25 13:58 Height 4 ft 11 in Weight 166 lb 7.184 oz BMI 33.6 BP 96/60 Blood Pressure Location Lt brachial Position Sitting Pulse 93 Pulse Source Pulse Oximeter Pulse Oximetry (%) 97 Oxygen Delivery Method Room Air Intake Visit Reasons: Asthma/Sleep Apnea Fiberglass Container Winding Operator Required: No Cash Reconciliation Specialist: Cash Reconciliation Specialist offered & declined Accompanied by: Self / Same As Patient Allergies egg (eggs) Allergy (Intermediate, Verified 02/14/25 14:00) Rash gluten Allergy (Intermediate, Verified 02/14/25 14:00) Hives From SOLU-MEDROL Allergy (Unknown, Uncoded 02/02/25 09:24) NAUSEA AND VOMITTING HPI Comments Details: The patient is a 39 year woman with known history of lifelong severe persistent asthma, nasal polyps s/p polypectomy, eczema. She has seen multiple pulmonologists throughout her life. Recently she has been on multiple inhalers, including Breo and Spiriva. She also had been on biologics including Nucala. The Nucala was very effective for her. She felt like her breathing is significantly better not requiring any prednisone. She has been off the Nucala now for about 10 months. She has been noticing increasing shortness of breath chest tightness. She has been using her inhaler on a regular basis. She recently did see an electric knife operator. She has significant allergic reaction at the time of the allergy skin testing. She has been concerned about starting allergy shots because she does want to have another reaction like that. But now she does have diminished breath sounds with a prolonged expiratory phase. She does have persistent uncontrolled asthma. Therefore, will go ahead and optimize her respiratory regimen by switching over to Trelegy and will go ahead and request blood work to restart her on biologics. Although she was on Nucala before I do believe that Dupixent will be a better option specially with a history of nasal polyposis. 02/14/2025 the patient is here for pulmonary follow-up visit. Overall she is doing okay. She did switch over to Trelegy. Although she does not like the taste. It reminds her of prednisone and she is traumatized by the use of prednisone. Therefore she has not been using it regularly. We did look at her pulmonary function studies. It appears that the patient does have small airways disease with a degree of asthma. In addition to that no evidence of any obstruction. She does have a mild restriction though. Will have her get a chest x-ray. In addition to that she has a history of the nasal polyps in addition to the chronic rhinitis. She is not using any nasal sprays right now. I will send her Dymista to see if this provides some relief. The patient overall does have an elevated eosinophil count on the blood work. Her IgE is relatively normal. Although, her allergies tend to be worse in the spring. Therefore because of the nasal polyposis the eczema in the asthma she is a good candidate for Dupixent. She already tried Nucala in the past and it was not very effective for her. Therefore, will consider Dupixent in the future but right now we are going to continue on the inhaled therapy. If she does not want to continue the Trelegy then we can go ahead and switch her over to Breztri where she does not have to have that after taste. I do believe the breast will be a good option for her. She will continue with the nasal therapy and will follow-up in the springtime when she usually has worsening symptoms. If he has any issues prior to that she can always call for further recommendations. [facility] Medical History (Updated 02/14/25 @ 14:26 by Nathan Pagan MD) Chronic restrictive lung disease Change in stool Eczema Nasal polyps Sleep apnea treated with continuous positive airway pressure (CPAP) BMI 37.0-37.9, adult Non-celiac gluten sensitivity IBS (irritable bowel syndrome) History of fatty infiltration of liver Abnormal large bowel motility Lumbar disc herniation Fatty liver Obesity GERD (gastroesophageal reflux disease) Asthma Hypothyroidism Graves disease Surgical History Hx of section Hx of cholecystectomy Family History (Updated 02/02/25 @ 09:11 by Lula Melchor CMA) Father Colon cancer Other Breast cancer Diabetes Hypercholesteremia Hypertension Social History Housing: House Alcohol intake: never Patient Tobacco Use Status: Former Tobacco user Tobacco use type: Cigarette e-Cigarette/Vaping Use: Never Used Second Hand Smoke Exposure: No service: No Current occupational status: employed Current occupational exposures/hazards: Yes Cognitive needs: No Hearing needs: No Vision needs: No Review of Systems Const Denies body aches, Denies chills, Reports fatigue, Denies fever(s), Denies headache(s), Reports lethargy and Denies poor appetite Eyes Reports no additional complaints ENT Denies dysphagia, Denies dizziness, Denies headache(s) and Denies odynophagia Card Denies chest pain, Denies syncope, Denies edema, Denies irregular heart rhythm, Denies lightheadedness and Denies dyspnea Resp Denies cough and Denies dyspnea GI Denies abdominal pain, Denies dysphagia, Reports dyspepsia (On and off), Reports heartburn (Intermittent), Denies diarrhea, Denies nausea, Denies odynophagia and Denies vomiting Musc Reports no additional complaints and Denies abnormal gait Skin/Breast Reports system reviewed and no additional complaints, except as documented Neuro Denies abnormal gait, Denies dizziness, Denies syncope and Denies headache(s) Endo Reports fatigue Physical Exam Vital Signs: Last Vital Signs Pulse 93 02/14/25 13:58 BP 96/60 02/14/25 13:58 Pulse Ox 97 02/14/25 13:58 Oxygen Delivery Method Room Air 02/14/25 13:58 BMI result Body Mass Index 33.6 Const General: comfortable and no acute distress Orientation/consciousness: patient oriented x3 HEENT Head: Yes normocephalic Face and sinus: Yes face symmetric Teeth and gingiva: other (mallampti score is 4) Neck Neck: Yes full ROM Chest Chest palpation & inspection: normal inspection of the chest Resp Effort & Inspection: normal respiratory effort and able to speak in complete sentences Auscultation: wheezes and diminished lung sounds Cardio Heart sounds: S1 normal heart sound present and S2 normal heart sound present GI Palpation (GI): Soft to palpation Neuro General: patient oriented x3 and moves all extremities Extrem General: Yes no clubbing, cyanosis or edema Assessment & Plan Assessment & Plan (1) Asthma: Code(s): J45.909 - Unspecified asthma, uncomplicated Category: Medical Qualifiers: Asthma complication type: unspecified Asthma persistence: persistent Asthma severity: severe Qualified Code(s): J45.50 - Severe persistent asthma, uncomplicated (2) RAO (obstructive sleep apnea): Code(s): G47.33 - Obstructive sleep apnea (adult) (pediatric) Category: Medical (3) Nasal polyps: Code(s): J33.9 - Nasal polyp, unspecified Category: Medical (4) Eczema: Code(s): L30.9 - Dermatitis, unspecified Category: Medical (5) Chronic restrictive lung disease: Code(s): J98.4 - Other disorders of lung Category: Medical Plan continue Trelegy, consider switching to Breztri LISA as neeeded start Dymista Continue H1B Continue Singulair Consider restarting Biologic therapies. Likely Dupixent. continue PAP therapy CXR F/U 3-4 months Medications: New azelastine-fluticasone 137-50 mcg/spray (Dymista) administer into each nostril 1 spray intranasal BID 23 grams 5RF 30 days Coding Level of Care Code Est Pt Level 4 (87341) Diagnoses Severe persistent asthma, unspecified whether complicated J45.50 Asthma complication type: unspecified Asthma persistence: persistent Asthma severity: severe RAO (obstructive sleep apnea) G47.33 Nasal polyps J33.9 Eczema L30.9 Chronic restrictive lung disease J98.4 Time Spent (min) 17
--- OUTSIDE RECORDS SUMMARY | 2025-02-14 15:12 | XMS_ITS | Clinical Summary ---
Author Organization [facility] [facility] Prior to 07/23/24 Address [address] [place] [address] Care Team Providers Care Fruit And Vegetable Inspector Name Role Phone Unavailable Primary Care Provider [...] this topic Shamir Dominguez Personal/Family Self 1985 [address] [place] [address]
--- OUTSIDE RECORDS SUMMARY | 2025-02-14 15:12 | XMS_ITS | Clinical Summary ---
Author Organization [facility] Address [address] [place] [address] Phone Care Team Providers Care Senior Clerk Name Role Phone Physician, No Pcp Primary [...] PROCEDURE: HISTORICAL TUBAL LIGATION COLONOSCOPY 03/04/2012 PROCEDURE: [place] COLONOSCOPY FLX DX W/COLLJ SPEC WHEN PFRMD; COMMENT: normal COLONOSCOPY 12/02/2017 PROCEDURE: HISTORICAL COLONOSCOPY; COMMENT: rectal polyp TA polyp ESOPHAGOGASTRODUODENOSCOPY 12/27/2019 PROCEDURE: [place] EGD TRANSORAL BIOPSY SINGLE/MULTIPLE; COMMENT: Dr. Donato - normal-appearing esophagus and duodenum. Stomach had evidence of gastric mucosal congestion. Duodenal biopsy was negative for celiac disease. Gastric biopsy was positive for mild chronic gastritis but negative for H. pylori. COLONOSCOPY 03/27/2021 PROCEDURE: HISTORICAL COLONOSCOPY; COMMENT: tiny polyp ESOPHAGOGASTRODUODENOSCOPY 03/27/2021 PROCEDURE: [place] EGD TRANSORAL BIOPSY SINGLE/MULTIPLE; COMMENT: normal, random stomach biopsy negative. OTHER SURGICAL HISTORY 12/20/2021 PROCEDURE: HISTORICAL TOTAL HYSTERECTOMY W/O BSO; COMMENT: RAH, BS CHOLECYSTECTOMY PROCEDURE: [place] LAPAROSCOPY SURG CHOLECYSTECTOMY Medical History Medical History [...] to Health Maintenance Insurance [employer] [facility] Care Teams Senior Clerk Relationship Specialty Start Date End Date Physician, No Pcp PCP - General 09/19/24
== END 2025-02-14 14:36 | disposition home or self-care (01) ==
LOC: HO.HPS 13:56
PROVIDERS: Visit Provider Hospitalist
DX: J45.50 Severe persistent asthma, uncomplicated (principal); G47.33 Obstructive sleep apnea (adult) (pediatric); J33.9 Nasal polyp, unspecified; L30.9 Dermatitis, unspecified; J98.4 Other disorders of lung
CPT/HCPCS: 99214